=== PATIENT | male | born 1960 | race Caucasian/White ===

== ENCOUNTER 2019-10-11 14:54 | Outpatient (RCR) | payer MEDICAID, SELFPAY | END 2019-11-01 00:01 | LOC: US 14:54 | PROVIDERS: Family Provider Nurse Practitioner Family; PCP Nurse Practitioner Family; Visit Provider Internal Medicine Nephrology | DX: N18.3 Chronic kidney disease, stage 3 (moderate) (principal) | CPT/HCPCS: 76770 ==

== ENCOUNTER 2019-10-17 13:59 | Outpatient (RCR) | payer MEDICAID, SELFPAY | END 2019-11-01 00:01 | LOC: WOUND 13:59 | PROVIDERS: Family Provider Nurse Practitioner Family; Visit Provider Nurse Practitioner Family | DX: E11.621 Type 2 diabetes mellitus with foot ulcer (principal); L97.522 Non-pressure chronic ulcer of other part of left foot with fat layer exposed | CPT/HCPCS: 11042; 99212 ×2 ==

== ENCOUNTER 2020-03-15 15:40 | Inpatient (IN) | payer BC, OTHER, MEDICAID, SELFPAY ==
[2020-03-15] VITALS (12 sets, daily range): BP systolic 96–133; BP diastolic 47–78; PULSE 83–97; RESP 9–22; TEMP 36.2–36.9; O2SAT 93–98; BMI 36.9
--- NOTE | 2020-03-15 | SCC_ITS ---
Procedure Done: Open reduction and internal fixation right lateral malleolus fracture (Vazquez C) with plate and screws 16.6 seconds of fluoroscopic guidance, for a cumulative dose of 0.59 mGy, was provided to Dr. Howell by the radiology department. C-arm images of the RIGHT ankle were saved for the patient's permanent record. [facility]
--- NOTE | 2020-03-15 | XR_ITS ---
WS: [id number] C-ARM RADIOGRAPHS RIGHT ANKLE; 5 IMAGES HISTORY: OR PICS COMPARISON: 03/15/2020 Intraoperative fixation of the fracture dislocation at the RIGHT ankle. Reduction and now normal alig nment at the ankle mortise. Plate and screw fixation distal fibula. Posterior malleolus fracture in g ood alignment. XR/XR ankle RT 2V [id number] IMPRESSION: Intraoperative reduction of the fracture dislocation at the ankle. Plate and screw fixation distal fibular fracture in good alignment.
--- NOTE | 2020-03-15 15:52 | XR_ITS ---
WS: [id number] RIGHT ANKLE: 2 VIEW(S) TECHNIQUE: AP and lateral. HISTORY: injury with pain and deformity COMPARISON: None available. Fracture dislocation involving the ankle joint. Talus is laterally displaced with respect to the tibia and fibula. There is an oblique fracture of th e distal fibula. The tibia is medial to the talus and anterior. Avulsion fractures of the posterior t alus. Vascular calcifications in the posterior tibial artery. Extensive soft tissue edema. XR/XR ankle RT min 3V* [id number] IMPRESSION: Fracture dislocation involving the ankle. Trimalleolar fracture.
--- NOTE | 2020-03-15 15:53 | ED_ITS ---
Documented by User: ALIYA Rain 03/15/20 17:43 HPI - Extremity Problem General: Chief complaint: Extremity Injury, Lower Stated complaint: RIGHT ANKLE DEFORMITY Time Seen by Provider: 03/15/20 15:52 History of Present Illness: HPI Narrative: Patient is a 59-year-old male who comes to the ED with right ankle pain. Past medical history of type 2 diabetes, neuropathy and BPH. Patient says he fell and injured right ankle when walking out of [employer] parking lot today. Due to his neuropathy patient did not notice the extent of the injury and pain. Patient says he made at home and then went to stand up after sitting in his chair and he fell down due to the pain in his right ankle. His is on the ankle and said that it looks like he broke it. EMS was called. EMS team stated that patient had an obvious right ankle d eformity. Patient says his pain is only 1 or 2 out of 10 when he is sitting and not moving right lower extremity. As soon as he moves right lower extremity reports any weight on it pain jumps up to 10. Associated symptoms: Deny chest pain, fever(s) or rash Review of Systems Const: Denies: fever(s), chills or fatigue Eyes: Denies: change in vision or eye discomfort ENMT: Denies: throat pain, odynophagia, nasal discharge or nasal congestion Card: Denies: chest pain, palpitations, edema, swelling of feet/ankles, dyspnea on exertion or orthopnea Resp: Denies: dyspnea, productive cough or non-productive cough GI: Denies: abdominal pain, nausea, vomiting, diarrhea, constipation or hematochezia : Denies: flank pain, difficulty urinating, dysuria or hematuria Musc: Reports: extremity pain (Right ankle) and extremity swelling (right ankle); Denies: neck pain or back pain Skin/Breast: Denies: rash or new lesions Neuro: Denies: headache(s), numbness in extremities or weakness in extremities [facility] ED PFSH: Medical History Diabetes Diabetic neuropathy Essential hypertension, benign GERD (gastroesophageal reflux disease) Mixed hyperlipidemia due to type 2 diabetes mellitus Restless leg Sleep difficulties Type 2 diabetes mellitus with other specified complication Surgical History H/O esophagogastroduodenoscopy Normal 06/18 Hx of colonoscopy 06/18 normal - to return in 10 years (2026) Status post amputation of right great toe Amputation of right great toe due to Osteomyelitis Social History Smoking and tobacco status: never smoked Second hand smoke exposure: No Smoking risk assessment/counseling performed?: No Alcohol intake: never Desire information about alcohol rehabilitation?: No Counseling given: No Desire information about substance/drug rehabilitation?: No Counseling given: No Physical Exam Const: COMMON NORMALS: patient oriented x3 HENMT: COMMON NORMALS: normocephalic HEAD & SCALP: normocephalic MOUTH: Normal oral and palatal mucosa present THROAT: posterior oropharynx normal and uvula midline Neck/C-Spine: COMMON NORMALS: supple GENERAL: Yes normal visual inspection Resp: COMMON NORMALS: normal respiratory effort, No retractions, No use of accessory muscles and clear to auscultation bilaterally AUSCULTATION: clear to auscultation bilaterally Cardio: COMMON NORMALS: regular rate, regular rhythm, S1 normal heart sound present, S2 normal heart sound present, No gallops present (Cardio), No clicks present (Cardio), No murmurs present (Cardio) and Peripheral pulses 2+ throughout RATE: regular rate RHYTHM: regular rhythm HEART SOUNDS: S1 normal heart sound present and S2 normal heart sound present PERIPHERAL PULSES: Peripheral pulses 2+ throughout GI: COMMON NORMALS: Normal to inspection, nondistended, normoactive bowel sounds present, Soft to palpation, non-tender and no masses INSPECTION: Yes central obesity AUSCULTATION: Yes normoactive bowel sounds PALPATION: Yes Soft to palpation : COMMON NORMALS: Yes no CVA tenderness BLADDER/KIDNEY EXAM: Yes no CVA tenderness Back/Pelvis: COMMON NORMALS: no CVA tenderness Extremity: RIGHT LOWER EXTREMITY: Yes foot & digits Right ankle: Yes inspection (Ankle deformity?right foot is externally rotated unnatural position. Open sore on medial malleolus possibly open fracture.), Yes palpation (mild tenderness), Yes ROM (Limited due to pain.) and Yes neurovascular exam (2+ dorsal pedal pulse baseline neuropathy. pt unable to feel touch sensation on foot. ) Neuro: COMMON NORMALS: patient oriented x3 and moves all extremities Skin: WOUNDS: Yes wounds noted (Superficial abrasion of skin over medial malleolus?possible open fracture.) Course ED course: I discussed case with Dr. Amador and she will be taking over patient care and admission to surgery. Dr. Amador spoke with communications professional ortho doc and he instructed her to reduce and place patient in a posterior leg splint. Consultations: Consultation #1: I spoke to the orthopedic communications professional about patient and his right ankle fracture and dislocation. The doctor was able to review the x-rays as well and he recommends patient getting surgery tonight. He recommended the ED reducing fracture as best as they can before admitting. Vital Signs: Vital signs: Vital Signs Temperature 98.5 F 03/15/20 15:41 Pulse Rate 90 03/15/20 17:35 Respiratory Rate 14 03/15/20 17:35 Blood Pressure 105/68 03/15/20 17:35 Pulse Oximetry 98 03/15/20 17:35 MDM - Extremity (Nontraumatic) MDM Narrative: Medical decision making narrative: pt is a 59 y/o male that comes to the ED with right ankle injury and deformity. Xray showed Fracture dislocation involving the ankle. Trimalleolar fracture. I contacted Ortho doc and he said patient will be admitted for surgery tonight. I discussed case with Dr. Amador and she will be taking over patient care and admission to surgery. Dr. Amador spoke with communications professional ortho doc and he instructed her to reduce and place patient in a posterior leg splint. Lab Data: Attestation: I reviewed the patient's lab results. Labs: Lab Results 03/15/20 03/15/20 03/15/20 Range/Units 17:05 17:05 17:05 WBC 11.4 H (4.0-10.0) 10^3/ uL RBC 3.94 L (4.1-5.3) 10^6/u L Hgb 11.8 (11.7-16.6) g/dL Hct 36.6 L (42.0-52.0) % MCV 92.9 (80-94) fL MCH 29.9 (28.0-34.0) pg MCHC 32.2 (30.0-36.0) g/dL RDW 12.8 (12.1-15.1) % Plt Count 240 (130-400) 10^3/c mm MPV 11.6 H (7.4-10.4) fL Neut % (Auto) 77.2 % Lymph % (Auto) 12.4 % [place] % (Auto) 7.9 % Eos % (Auto) 1.6 % Baso % (Auto) 0.3 % Neut # (Auto) 8.8 H (1.8-7.7) 10^3/u L Lymph # (Auto) 1.4 (0.8-4.8) 10^3/u L [place] # (Auto) 0.9 (0.2-0.9) 10^3/u L Eos # (Auto) 0.2 (0.0-0.8) 10^3/u L Baso # (Auto) 0.0 (0.0-0.1) 10^3/u L Nucleated RBC % (a uto) 0 % Nucleated RBCs # 0.0 /100WBC PT 13.00 (10.5-13.3) SECO NDS INR 0.95 (0.8-1.2) APTT 28.0 (23.9-36.7) SECO NDS Sodium 135 L (136-145) mmol/L Potassium 5.0 (3.5-5.1) mmol/L Chloride 99 (98-107) mmol/L Carbon Dioxide 23 (22-29) mmol/L Anion Gap 18.0 (5-19) BUN 40 H (8-23) mg/dL Creatinine 2.1 H (0.7-1.2) mg/dL GFR Calculation 32.4 L (90-130) mL/min Glucose 311 H (65-115) mg/dL Calculated Osmolal ity 289 (285-295) mOsm/k g Calcium 8.9 (8.5-10.5) mg/dL Total Bilirubin 0.2 (0.15-1.2) mg/dL AST 21 (0-40) U/L ALT 20 (0-41) U/L Alkaline Phosphata se 112 (40-130) IU/L Total Protein 7.0 (6.6-8.7) g/dL Albumin 4.1 (3.5-5.2) g/dL Globulin 2.9 (1.3-4.6) g/dL Imaging Data^: Xray Ortho: Attestation: I personally reviewed and interpreted this imaging study as follows: Radiologist's impression: [address] [place] [address] XRay Report Signed Patient: Richie Baca Unit #: [id number] : 1960 Age/Sex: 59 / M ADM Date: 03/15/20 Loc: ER Room/Bed: Attending Dr: Ordering Provider/Ordering MD: Sloan Valencia Date of Service: 03/15/20 Procedure(s): XR ankle RT min 3V* [id number] Accession Number(s): [id number] Report Number: [id number] WS: [id number] RIGHT ANKLE: 2 VIEW(S) TECHNIQUE: AP and lateral. HISTORY: injury with pain and deformity COMPARISON: None available. Fracture dislocation involving the ankle joint. Talus is laterally displaced with respect to the tibia and fibula. There is an oblique fracture of the distal fibula. The tibia is medial to the talus and anterior. Avulsion fractures of the p osterior talus. Vascular calcifications in the posterior tibial artery. Extensive soft tissue edema. XR/XR ankle RT min 3V* [id number] IMPRESSION: Fracture dislocation involving the ankle. Trimalleolar fracture. Dictated By: Brandee Ott DO Signed By: Brandee Ott DO Signed Date/Time: 03/15/201636 DD/ 35 Discharge Plan Discharge Clinical Impression: Fracture dislocation of ankle Qualifiers: Encounter type: initial encounter Fracture type: open Open fracture type: open type I or II Laterality: right Qualified Code(s): S82.891B - Other fracture of right lower leg, initial encounter for open fracture type I or II Condition: Stable Prescriptions: No Action pantoprazole 40 mg tablet,delayed release (DR/EC) 40 mg PO DAILY 90 Days Qty: 90 RF: 1 pramipexole 0.25 mg tablet 0.25 mg PO DAILY 90 Days Qty: 90 RF: 1 lovastatin 20 mg tablet 20 mg PO DAILY 90 Days Qty: 90 RF: 1 gabapentin 300 mg capsule 300 mg PO BID 90 Days Qty: 180 RF: 1 amlodipine 10 mg tablet 10 ea PO DAILY RF: 0 (DME) pen needle, diabetic 31 gauge x 1/4 needle See Rx Instructions ea .ROUTE .MEDSUPPLY Qty: 30 RF: 0 (DME) FreeStyle Michaela 14 Day Sensor Kit See Rx Instructions .ROUTE .MEDSUPPLY Qty: 1 RF: 0 liraglutide 0.6 mg/0.1 mL (18 mg/3 mL) pen injector 1.8 mg SUBCUT DAILY Qty: 9 RF: 2 Levemir FlexTouch U-100 Insuln 100 unit/mL (3 mL) insulin pen 40 unit SUBCUT DAILY 90 Days Qty: 15 RF: 1 lisinopril 10 mg tablet 10 mg PO DAILY Qty: 30 RF: 2 glipizide 10 mg tablet 10 mg PO DAILY Qty: 30 RF: 2 amitriptyline 100 mg tablet 200 mg PO .at bedtime PRN (Reason: insomnia) Qty: 60 RF: 2 Januvia 100 mg tablet 100 mg PO DAILY 90 Days Qty: 90 RF: 1 tamsulosin 0.4 mg capsule 0.4 mg PO DAILY RF: 0 Multiple Vitamins Tablet 1 tab PO DAILY RF: 0 Vitamin C 1,000 mg Tablet Extended Release 1,000 mg PO Q12H RF: 0 aspirin 81 mg Tablet,Delayed Release (Dr/Ec) 81 mg PO DAILY RF: 0 iron 325 mg (65 mg iron) Tablet 325 mg PO DAILY RF: 0 Acetaminophen PM 25-500 mg Tablet 1 tab PO BEDTIME PRN (Reason: Sleep) RF: 0 Referrals: VERONICA Ordonez, [facility] DECKHAND [Primary Care Provider] - Coding Level of Care Code ED Refractive Surgeon for Chg Fwd Exam Comprehensive Documented by User: Nneka Amador MD 03/15/20 18:05 HPI - Extremity Problem General: Chief complaint: Extremity Injury, Lower Stated complaint: RIGHT ANKLE DEFORMITY Time Seen by Provider: 03/15/20 15:52 PFSH ED PFSH: Medical History Diabetes Diabetic neuropathy Essential hypertension, benign GERD (gastroesophageal reflux disease) Mixed hyperlipidemia due to type 2 diabetes mellitus Restless leg Sleep difficulties Type 2 diabetes mellitus with other specified complication Surgical History H/O esophagogastroduodenoscopy Normal 06/18 Hx of colonoscopy 06/18 normal - to return in 10 years (2026) Status post amputation of right great toe Amputation of right great toe due to Osteomyelitis Social History Smoking and tobacco status: never smoked Second hand smoke exposure: No Smoking risk assessment/counseling performed?: No Alcohol intake: never Desire information about alcohol rehabilitation?: No Counseling given: No Desire information about substance/drug rehabilitation?: No Counseling given: No Course Vital Signs: Vital signs: Vital Signs Temperature 98.5 F 03/15/20 15:41 Pulse Rate 90 03/15/20 17:35 Respiratory Rate 14 03/15/20 17:35 Blood Pressure 105/68 03/15/20 17:35 Pulse Oximetry 98 03/15/20 17:35 MDM - Extremity (Nontraumatic) MDM Narrative: Medical decision making narrative: I personally saw this patient in conjunction with the midlevel. He has an open ankle fracture [facility] I spoke with Dr. Howell in the room with the patient. He asked that I try to reduce while putting on a posterior splint while awaiting the OR. Patient was given 2 mg of morphine maintained his sats with nasal cannula and I reduced his right ankle there is less deformity grossly still difficult to palpate a dorsalis pedis pulse but ankle and foot look much better after reduction. Patient tolerated this very well and states that it actually feels better at this time he is comfortable in bed currently. RN and I put the posterior splint on. He also has received IV antibiotics. Lab Data: Labs: Lab Results 03/15/20 03/15/20 03/15/20 Range/Units 17:05 17:05 17:05 WBC 11.4 H (4.0-10.0) 10^3/ uL RBC 3.94 L (4.1-5.3) 10^6/u L Hgb 11.8 (11.7-16.6) g/dL Hct 36.6 L (42.0-52.0) % MCV 92.9 (80-94) fL MCH 29.9 (28.0-34.0) pg MCHC 32.2 (30.0-36.0) g/dL RDW 12.8 (12.1-15.1) % Plt Count 240 (130-400) 10^3/c mm MPV 11.6 H (7.4-10.4) fL Neut % (Auto) 77.2 % Lymph % (Auto) 12.4 % [place] % (Auto) 7.9 % Eos % (Auto) 1.6 % Baso % (Auto) 0.3 % Neut # (Auto) 8.8 H (1.8-7.7) 10^3/u L Lymph # (Auto) 1.4 (0.8-4.8) 10^3/u L [place] # (Auto) 0.9 (0.2-0.9) 10^3/u L Eos # (Auto) 0.2 (0.0-0.8) 10^3/u L Baso # (Auto) 0.0 (0.0-0.1) 10^3/u L Nucleated RBC % (a uto) 0 % Nucleated RBCs # 0.0 /100WBC PT 13.00 (10.5-13.3) SECO NDS INR 0.95 (0.8-1.2) APTT 28.0 (23.9-36.7) SECO NDS Sodium 135 L (136-145) mmol/L Potassium 5.0 (3.5-5.1) mmol/L Chloride 99 (98-107) mmol/L Carbon Dioxide 23 (22-29) mmol/L Anion Gap 18.0 (5-19) BUN 40 H (8-23) mg/dL Creatinine 2.1 H (0.7-1.2) mg/dL GFR Calculation 32.4 L (90-130) mL/min Glucose 311 H (65-115) mg/dL Calculated Osmolal ity 289 (285-295) mOsm/k g Calcium 8.9 (8.5-10.5) mg/dL Total Bilirubin 0.2 (0.15-1.2) mg/dL AST 21 (0-40) U/L ALT 20 (0-41) U/L Alkaline Phosphata se 112 (40-130) IU/L Total Protein 7.0 (6.6-8.7) g/dL Albumin 4.1 (3.5-5.2) g/dL Globulin 2.9 (1.3-4.6) g/dL Discharge Plan Discharge Clinical Impression: Fracture dislocation of ankle Qualifiers: Encounter type: initial encounter Fracture type: open Open fracture type: open type I or II Laterality: right Qualified Code(s): S82.891B - Other fracture of right lower leg, initial encounter for open fracture type I or II Condition: Stable Prescriptions: No Action pantoprazole 40 mg tablet,delayed release (DR/EC) 40 mg PO DAILY 90 Days Qty: 90 RF: 1 pramipexole 0.25 mg tablet 0.25 mg PO DAILY 90 Days Qty: 90 RF: 1 lovastatin 20 mg tablet 20 mg PO DAILY 90 Days Qty: 90 RF: 1 gabapentin 300 mg capsule 300 mg PO BID 90 Days Qty: 180 RF: 1 amlodipine 10 mg tablet 10 ea PO DAILY RF: 0 (DME) pen needle, diabetic 31 gauge x 1/4 needle See Rx Instructions ea .ROUTE .MEDSUPPLY Qty: 30 RF: 0 (DME) FreeStyle Michaela 14 Day Sensor Kit See Rx Instructions .ROUTE .MEDSUPPLY Qty: 1 RF: 0 liraglutide 0.6 mg/0.1 mL (18 mg/3 mL) pen injector 1.8 mg SUBCUT DAILY Qty: 9 RF: 2 Levemir FlexTouch U-100 Insuln 100 unit/mL (3 mL) insulin pen 40 unit SUBCUT DAILY 90 Days Qty: 15 RF: 1 lisinopril 10 mg tablet 10 mg PO DAILY Qty: 30 RF: 2 glipizide 10 mg tablet 10 mg PO DAILY Qty: 30 RF: 2 amitriptyline 100 mg tablet 200 mg PO .at bedtime PRN (Reason: insomnia) Qty: 60 RF: 2 Januvia 100 mg tablet 100 mg PO DAILY 90 Days Qty: 90 RF: 1 tamsulosin 0.4 mg capsule 0.4 mg PO DAILY RF: 0 Multiple Vitamins Tablet 1 tab PO DAILY RF: 0 Vitamin C 1,000 mg Tablet Extended Release 1,000 mg PO Q12H RF: 0 aspirin 81 mg Tablet,Delayed Release (Dr/Ec) 81 mg PO DAILY RF: 0 iron 325 mg (65 mg iron) Tablet 325 mg PO DAILY RF: 0 Acetaminophen PM 25-500 mg Tablet 1 tab PO BEDTIME PRN (Reason: Sleep) RF: 0 Referrals: VERONICA Ordonez, [facility] DECKHAND [Primary Care Provider] - Coding Level of Care Code ED Refractive Surgeon for Chg Fwd Exam Comprehensive
[2020-03-15] MEDS: ondansetron 2 mg/ML SDV 2 mL 4 MG IVP (17:01)
[2020-03-15] MEDS: morphine 4 mg/mL SDV 1 mL IVP (17:01)
[2020-03-15 17:18] LABS: Basophils % 0.3 %; Eosinophils # 0.2 10^3/uL (0.0-0.8); Eosinophils % 1.6 %; Hematocrit 36.6 % (42.0-52.0); Hemoglobin 11.8 g/dL (11.7-16.6); Lymphocytes # 1.4 10^3/uL (0.8-4.8); Lymphocytes % 12.4 %; Mean Corpuscular HGB Conc 32.2 g/dL (30.0-36.0); Mean Corpuscular Hemoglobin 29.9 pg (28.0-34.0); Mean Corpuscular Volume 92.9 fL (80-94); Mean Platelet Volume 11.6 fL (7.4-10.4); Monocytes # 0.9 10^3/uL (0.2-0.9); Monocytes % 7.9 %; Neutrophils # 8.8 10^3/uL (1.8-7.7); Neutrophils % 77.2 %; Nucleated Red Blood Cells % 0 %; Platelet Count 240 10^3/cmm (130-400); Red Blood Count 3.94 10^6/uL (4.1-5.3); Red Cell Distribution Width 12.8 % (12.1-15.1); White Blood Count 11.4 10^3/uL (4.0-10.0)
[2020-03-15 17:33] LABS: INR 0.95 (0.8-1.2)
[2020-03-15 17:36] LABS: Alanine Aminotransferase 20 U/L (0-41); Albumin Level 4.1 g/dL (3.5-5.2); Alkaline Phosphatase 112 IU/L (40-130); Aspartate Amino Transferase 21 U/L (0-40); Blood Urea Nitrogen 40 mg/dL (8-23); Calcium 8.9 mg/dL (8.5-10.5); Carbon Dioxide 23 mmol/L (22-29); Chloride 99 mmol/L (98-107); Globulin 2.9 g/dL (1.3-4.6); Glomerular Filtration Rate 32.4 mL/min (90-130); Glucose 311 mg/dL (65-115); Osmolality Calculated 289 mOsm/kg (285-295); Sodium 135 mmol/L (136-145); Total Bilirubin 0.2 mg/dL (0.15-1.2)
[2020-03-15] MEDS: morphine 4 mg/mL SDV 1 mL 2 MG IVP (17:43)
--- NOTE | 2020-03-15 17:55 | P.HP_ITS ---
Providers/Chief Complaint Admitting Physician: Gregory Howell DO Orthopedic surgery Primary Care Provider: MADELEINE Waldrop Chief Complaint: RIGHT ANKLE DEFORMITY History of Present Illness Richie Baca is a 59 year old male At [facility] in the local area and sustained a fracture dislocation of his right ankle. He is brought [facility]. Evaluation shows a gross deformity of the right ankle. X-ray shows a trimalleolar ankle fracture dislocation. Patient is a longstanding diabetic of greater than 30 years by his history. States his blood sugars are necessarily well controlled. Review of Systems Const: Denies: fever(s) or chills Card: Denies: chest pain, palpitations or dyspnea on exertion Resp: Denies: dyspnea or productive cough GI: Denies: abdominal pain, nausea or vomiting Musc: Reports: extremity pain, joint pain and deformity (Right ankle) Skin/Breast: Reports: new lesions (Skin over medial malleolus is dark and tented from deformity of right ankle) Medications/Allergies Home Medications Medication Instructions Recorded Confirmed Last Taken Type amlodipine 10 mg tablet 10 ea PO DAILY 11/15/19 03/15/20 Unknown History flash glucose sensor #1 each 11/15/19 03/15/20 Unknown Rx pen needle, diabetic 31 gauge x #30 each 11/15/19 03/15/20 Unknown History / liraglutide 0.6 mg/0.1 mL (18 mg/3 1.8 mg SUBCUT DAILY #9 ml 01/23/20 03/15/20 Unknown Rx mL) subcutaneous pen injector insulin detemir U-100 100 unit/mL 40 unit SUBCUT DAILY 90 Days #15 ml 01/30/20 03/15/20 03/15/20 Rx (3 mL) subcutaneous pen gabapentin 300 mg capsule 300 mg PO BID 90 Days #180 cap 01/31/20 03/15/20 03/15/20 Rx lovastatin 20 mg tablet 20 mg PO DAILY 90 Days #90 tab 01/31/20 03/15/20 03/15/20 Rx pantoprazole 40 mg tablet,delayed 40 mg PO DAILY 90 Days #90 tab 01/31/20 03/15/20 03/15/20 Rx release pramipexole 0.25 mg tablet 0.25 mg PO DAILY 90 Days #90 tab 01/31/20 03/15/20 03/15/20 Rx amitriptyline 100 mg tablet 200 mg PO .at bedtime PRN #60 tab 02/10/20 03/15/20 03/14/20 Rx glipizide 10 mg tablet 10 mg PO DAILY #30 tab 02/10/20 03/15/20 03/15/20 Rx lisinopril 10 mg tablet 10 mg PO DAILY #30 tab 02/10/20 03/15/20 03/15/20 Rx sitagliptin 100 mg tablet 100 mg PO DAILY 90 Days #90 tab 03/12/20 03/15/20 03/15/20 Rx ascorbic acid (vitamin C) [Vitamin 1,000 mg PO Q12H 03/15/20 03/15/20 03/15/20 History C] aspirin 81 mg PO DAILY 03/15/20 03/15/20 03/15/20 History diphenhydramine-acetaminophen 1 tab PO BEDTIME PRN 03/15/20 03/15/20 03/15/20 History [Acetaminophen PM] iron 325 mg PO DAILY 03/15/20 03/15/20 03/15/20 History multivitamin [Multiple Vitamins] 1 tab PO DAILY 03/15/20 03/15/20 03/15/20 History tamsulosin 0.4 mg PO DAILY 03/15/20 03/15/20 Unknown History Allergies Allergy/AdvReac Type Severity Reaction Status Date / Time No Known Allergies Allergy Verified 03/15/20 15:47 PFSH Acute PFSH: Medical History Diabetes Diabetic neuropathy Essential hypertension, benign GERD (gastroesophageal reflux disease) Mixed hyperlipidemia due to type 2 diabetes mellitus Restless leg Sleep difficulties Type 2 diabetes mellitus with other specified complication Surgical History H/O esophagogastroduodenoscopy Normal 06/18 Hx of colonoscopy 06/18 normal - to return in 10 years (2026) Status post amputation of right great toe Amputation of right great toe due to Osteomyelitis Social History Smoking and tobacco status: never smoked Second hand smoke exposure: No Smoking risk assessment/counseling performed?: No Alcohol intake: never Desire information about alcohol rehabilitation?: No Counseling given: No Desire information about substance/drug rehabilitation?: No Counseling given: No Vitals/I&O/Wt Last Vital Signs Temp 98.5 F 03/15/20 15:41 Pulse 90 03/15/20 17:35 Resp 14 03/15/20 17:35 BP 105/68 03/15/20 17:35 Pulse Ox 98 03/15/20 17:35 Weight last 48 hrs Weight 250 lb Physical Exam Const: COMMON NORMALS: patient oriented x3, alert and well nourished EXAM LIMITATIONS: no altered mental status GENERAL APPEARANCE: cooperative and in distress; no odor of alcohol detected HENMT: TEETH & GINGIVA: Yes dentures Resp: COMMON NORMALS: normal respiratory effort, No retractions, No use of accessory muscles and clear to auscultation bilaterally Cardio: COMMON NORMALS: no JVD, regular rate, S1 normal heart sound present and S2 normal heart sound present GI: COMMON NORMALS: Normal to inspection, nondistended, normoactive bowel sounds present, Soft to palpation and non-tender Extremity: RIGHT LOWER EXTREMITY: Yes foot & digits Right ankle: Yes inspection (Gross deformity right ankle due to fracture dislocation) and Yes foot & digits (Missing small toe right foot from previous amputation) Neuro: SENSORIUM/ORIENTATION: Yes alert, Yes oriented to person, Yes oriented to place, Yes oriented to time and No Orientation impaired Data : 03/15/20 17:05 03/15/20 17:05 Attestations Medical Necessity Statement*: 59-year-old white male with diabetes with fracture dislocation of right ankle to be taken to the operating room tonight on an urgent basis for stabilization of his ankle prior to swelling developing. He may be able to be discharged tomorrow from an orthopedic perspective I am concerned with regards to blood sugar control and pain control in the postoperative period that could require him to stay beyond single overnight stay and require more than 2 overnight stays potentially. Time Spent in Patient Care: Greater than 35 minutes (>than 50% of time spent in counselling and/or direct pt care on unit) . Coding Level of Care Code Acute Hospice Massage Therapist for Jone Lewis
--- NOTE | 2020-03-15 18:05 | XR_ITS ---
WS: [id number] RIGHT ANKLE: 2 VIEW(S) TECHNIQUE: AP and lateral. HISTORY: reduction COMPARISON: Study earlier the same day. Attempted reduction of the fracture dislocation. No change in alignment. There is continued fracture dislocation at the ankle. Trimalleolar fractures with the talus being posterior and lateral in relati onship to the tibia. XR/XR ankle RT 2V [id number] IMPRESSION: Persistent fracture dislocation at the ankle joint.
--- NOTE | 2020-03-15 18:23 | P.OP_ITS ---
Operative Report Date of procedure: March 15, 2020 Pre-op Diagnosis: right ankle fracture dislocation Post-op Diagnosis: Right bimalleolar ankle fracture dislocation Procedure Done: Open reduction and internal fixation right lateral malleolus fracture with plate and screws Closed treatment w/o manipulation of posterior malleolar fracture Implants: Delmont plate and screws Pathology: none sent Surgeon: Gregory Howell Anesthesia: General Estimated blood loss (mL): 15 Tourniquet time (min): 45 Condition: stable Disposition: PACU Brief History: 59-year-old white male longstanding diabetic [facility] sustaining a fracture dislocation of his right ankle. He is brought to the emergency room. X-rays demonstrated his fracture dislocation. His fracture was able to be gently realigned using moderate sedation. He was seen in the ER by myself and recommended that he undergo urgent stabilization of his fracture prior to swelling. We discussed potential complications of surgery risk of surgery include are not limited to wound healing complications as he has tented area over the medial malleolus area that could lead to skin breakdown. Patient has a history of amputation of the right small toe due to complications from diabetes. He could go on to develop a Charcot joint. I explained this pathology to him. There be complications with wound healing, failure fracture to heal failure of implants. Medical complications can include infection, blood clots, heart attack, stroke risk up to including . All questions were answered patient is agreeable to proceed with surgery this evening on urgent basis. Procedure: 1.5 g of Zinacef Patient identified. Surgical site was signed. Surgical permit was signed. Patient received 1.5 g of Zinacef intravenously for surgical prophylaxis. He was taken back to the operating room. His placed supine on the operating room table was placed under general anesthesia without difficulty. A tourniquet was placed but the upper aspect of the right thigh. The right lower extremity is in sterilely prepped and draped usual fashion. Timeout was performed. Operative limb was elevated and exsanguinated using Esmarch bandage tourniquet inflated to 300 mmHg pressure. A 15 cm incision was made from the tip of the lateral ma lleolus proximal in line with the underlying fibula. Dissection was carried down to bone. Periosteal elevator was used to expose the lateral fibular cortex. The fracture site was identified. With a bone-holding tenaculum forceps I traction the distal portion of the lateral malleolus opening up the fracture site. I curetted the fracture site of interpose soft tissue and fracture hematoma. The fracture was then reduced using the bone-holding tenaculum forceps. A Matias fibular plate of appropriate length was then placed over the reduced fracture. It was pinned in place using K wires. We then used fluoroscopic imaging to verify that the fracture was indeed reduced and the plate was appropriately placed. Then placed a cortical screw proximal to the fracture line and compress the plate down to the lateral surface of the fibula. Then placed a series of distal and proximal locking screws in place. Fluoroscopic imaging was used to verify appropriate placement of implants. The fracture was reduced and AP oblique and lateral images. And then used external portion and fluoroscopic imaging as well as a instrument between the distal fibula and tibia to attempt to widen the distal tibiofibular joint. I was unable to create any increased Or noted any instability of the distal tibiofibular joint. This reason we cannot stabilize the distal tibia fibular joint either but suspension device or a screw fixation. The wound was irrigated with Betadine-containing saline solution, antibiotic containing saline solution. Skin was then closed in layers with nylon suture and colin on skin. Antibiotic ointment was applied to the incision line as well as the area of discolored skin there was still intact over the medial malleolus Telfa was applied to the medial malleolar area as well as the incision. Sterile dressings were applied to include Elmore cotton to allow for swelling. A posterior plaster splint with a stirrup augment was applied with an Hardik overwrap. Tourniquet was deflated during application of dressings. The patient was aroused from general anesthesia. He was taken to recovery room in stable satisfactory condition having tolerated procedure well. All counts are correct.
--- NOTE | 2020-03-15 20:44 | PC.NURSE ---
Pt. off unit at this time to OR.
--- NOTE | 2020-03-15 20:53 | SUR.PHASEI ---
2044 patient to ops at this time from med surg. denies pain to right ankle.
--- NOTE | 2020-03-15 21:16 | ANES.PREANE2 ---
Pre-Anesthetic Assessment Pre-Anesthetic Assessment: Height/Weight: Height 1.75 m Weight 113.398 kg Temp Pulse Resp BP Pulse Ox 98.1 F 87 18 133/74 95 03/15/20 20:45 03/15/20 20:45 03/15/20 20:45 03/15/20 20:45 03/15/20 20:45 Preop Diagnosis: right ankle fracture dislocation Proposed Procedure: Operation Date: 03/15/20 18:50 Proposed Procedures p ORIF Ankle(Not Applicable) - Gregory Howell DO Last intake: Intake Last Liquid Date 03/15/20 Last Liquid Time 10:30 Last Solid Date 03/15/20 Last Solid Time 10:30 Social: Social History: No alcohol and No tobacco Exam: Pre-Anes Outpt Exam: alert, oriented x 3, clear to auscultation bilaterally and regular rate & rhythm Airway: Submandibular: WNL Cervical ROM: WNL MP: 3 Dentition: False (upper and lower) History/ROS: No significant history except as noted Pulmonary: Pulmonary: COPD and GUTIERREZ CV/HEM: CV/HEM: HTN : : Chronic renal Insufficiency Hepatic: Hepatic: None reported GI: GI: GERD Metabolic: Metabolic: DM, Hyperlipidemia and Morbid obesity Musc/skel: Musc/skel: OA/DJD Neuropsych: Neuropsych: Neuropathy Anesthetic Plan: ASA status: 3 Anesthesia: Anesthesia Evaluation and General Risk of > 500 ml blood loss (7ml/kg in children): No PFSH Anesthesia PFSH: Medical History Diabetes Diabetic neuropathy Essential hypertension, benign GERD (gastroesophageal reflux disease) Mixed hyperlipidemia due to type 2 diabetes mellitus Restless leg Sleep difficulties Type 2 diabetes mellitus with other specified complication Surgical History H/O esophagogastroduodenoscopy Normal 06/18 Hx of colonoscopy 06/18 normal - to return in 10 years (2026) Status post amputation of right great toe Amputation of right great toe due to Osteomyelitis Social History Smoking and tobacco status: never smoked Second hand smoke exposure: No Smoking risk assessment/counseling performed?: No Alcohol intake: never Desire information about alcohol rehabilitation?: No Counseling given: No Desire information about substance/drug rehabilitation?: No Counseling given: No Data Anesthesia CBC & Chem 7: 03/15/20 17:05 03/15/20 17:05 Other Labs: Laboratory Results - last 48 hr 03/15/20 03/15/20 03/15/20 17:05 17:05 17:05 WBC 11.4 H RBC 3.94 L Hgb 11.8 Hct 36.6 L MCV 92.9 MCH 29.9 MCHC 32.2 RDW 12.8 Plt Count 240 MPV 11.6 H Neut % (Auto) 77.2 Lymph % (Auto) 12.4 [place] % (Auto) 7.9 Eos % (Auto) 1.6 Baso % (Auto) 0.3 Neut # (Auto) 8.8 H Lymph # (Auto) 1.4 Leslie # (Auto) 0.9 Eos # (Auto) 0.2 Baso # (Auto) 0.0 Nucleated RBC % (auto) 0 Nucleated RBCs # 0.0 PT 13.00 INR 0.95 APTT 28.0 Sodium 135 L Potassium 5.0 Chloride 99 Carbon Dioxide 23 Anion Gap 18.0 BUN 40 H Creatinine 2.1 H GFR Calculation 32.4 L Glucose 311 H Calculated Osmolality 289 Calcium 8.9 Total Bilirubin 0.2 AST 21 ALT 20 Alkaline Phosphatase 112 Total Protein 7.0 Albumin 4.1 Globulin 2.9 Cardiac Studies: No Data to Display
[2020-03-15] MEDS: sodium chloride 0.9% 1,000 ML 30 ML IV (21:33)
[2020-03-15] MEDS: cefUROXime 1,500 MG in sodium chloride 0.9% (plus) 50 ML 100 MG IV (22:01)
[2020-03-15] MEDS: neomycin-poly-bacitracin oint 28 gm 1 APPLIC TOPICAL (23:37)
--- NOTE | 2020-03-15 23:48 | SUR.PHASEI ---
4505 PATIENT TO PACU AT THIS TIME FROM OR. RR EVEN AND UNLABORED. ORAL AIRWAY IN PLACE. PLACED ON SIMPLE MASK AT 8L, SPO2 96%. DRESSING INTACT TO RIGHT ANKLE. COOL TO THE TOUCH, CAP REFILL LESS THAN 3 SECONDS.
[2020-03-16] VITALS (18 sets, daily range): BP systolic 79–153; BP diastolic 51–73; PULSE 82–108; RESP 12–25; TEMP 36.2–37.3; O2SAT 90–97
--- NOTE | 2020-03-16 00:10 | SUR.PHASEI ---
1210 ORAL AIRWAY REMOVED AT THIS TIME. SPO2 96% ON 3L NC.
--- NOTE | 2020-03-16 00:46 | SUR.PHASEI ---
0036 PATIENT TO MED SURG AT THIS TIME. AROUSABLE TO VERBAL STIMULI, DROWSY. VITALS STABLE. PATIENT DENIES PAIN. DRESSING TO RIGHT ANKLE, CDI WITH FIRST ICE IN PLACE.
--- NOTE | 2020-03-16 01:55 | P.CONIM_ITS ---
Providers/Reason For Consult Consulting Physican/Specialty*: Dr. Howell Reason for Consult*: Comanagement of chronic medical conditions. Attending Physician: Gregory Howell DO Primary Care Provider: MADELEINE Waldrop History of Present Illness History of Present Illness Richie Baca is a 59 year old male with past medical history of diabetes, diabetic peripheral neuropathy, hypertension, chronic kidney disease, restless leg syndrome, GERD, BPH who fell in [facility] and suffered 3 malleolar fracture of the right ankle. Status post open reduction and internal fixation by Dr. Howell. I was kindly asked by Dr. Mason to help with management of patient's chronic medical conditions. The patient reports that his diabetes and hypertension are well controlled. He denies any history of heart disease. No chest pain, palpitations, shortness of breath, dizziness or lightheadedness. No nausea or vomiting. No diarrhea. No fevers or chills. The fall according to the patient was mechanical in nature. He misstepped and lost balance. The patient denies any similar episodes in the past. Currently the pain is well controlled. Review of Systems General: Reports: 10 or more systems reviewed and unremarkable except in HPI and below Meds/Allergies Home Medications and Allergies Home Medications Medication Instructions Recorded Confirmed Last Taken Type amlodipine 10 mg tablet 10 ea PO DAILY 11/15/19 03/15/20 Unknown History flash glucose sensor #1 each 11/15/19 03/15/20 Unknown Rx pen needle, diabetic 31 gauge x #30 each 11/15/19 03/15/20 Unknown History 1/4 liraglutide 0.6 mg/0.1 mL (18 mg/3 1.8 mg SUBCUT DAILY #9 ml 01/23/20 03/15/20 Unknown Rx mL) subcutaneous pen injector insulin detemir U-100 100 unit/mL 40 unit SUBCUT DAILY 90 Days #15 ml 01/30/20 03/15/20 03/15/20 Rx (3 mL) subcutaneous pen gabapentin 300 mg capsule 300 mg PO BID 90 Days #180 cap 01/31/20 03/15/20 03/15/20 Rx lovastatin 20 mg tablet 20 mg PO DAILY 90 Days #90 tab 01/31/20 03/15/20 03/15/20 Rx pantoprazole 40 mg tablet,delayed 40 mg PO DAILY 90 Days #90 tab 01/31/20 03/15/20 03/15/20 Rx release pramipexole 0.25 mg tablet 0.25 mg PO DAILY 90 Days #90 tab 01/31/20 03/15/20 03/15/20 Rx amitriptyline 100 mg tablet 200 mg PO .at bedtime PRN #60 tab 02/10/20 03/15/20 03/14/20 Rx glipizide 10 mg tablet 10 mg PO DAILY #30 tab 02/10/20 03/15/20 03/15/20 Rx lisinopril 10 mg tablet 10 mg PO DAILY #30 tab 02/10/20 03/15/20 03/15/20 Rx sitagliptin 100 mg tablet 100 mg PO DAILY 90 Days #90 tab 03/12/20 03/15/20 03/15/20 Rx ascorbic acid (vitamin C) [Vitamin 1,000 mg PO Q12H 03/15/20 03/15/20 03/15/20 History C] aspirin 81 mg PO DAILY 03/15/20 03/15/20 03/15/20 History diphenhydramine-acetaminophen 1 tab PO BEDTIME PRN 03/15/20 03/15/20 03/15/20 History [Acetaminophen PM] iron 325 mg PO DAILY 03/15/20 03/15/20 03/15/20 History multivitamin [Multiple Vitamins] 1 tab PO DAILY 03/15/20 03/15/20 03/15/20 History tamsulosin 0.4 mg PO DAILY 03/15/20 03/15/20 Unknown History Allergies Allergy/AdvReac Type Severity Reaction Status Date / Time Plastic Tape Allergy ALGY-Hives Uncoded 03/15/20 19:34 PFSH Acute PFSH: Medical History Diabetes Diabetic neuropathy Essential hypertension, benign GERD (gastroesophageal reflux disease) Mixed hyperlipidemia due to type 2 diabetes mellitus Restless leg Sleep difficulties Type 2 diabetes mellitus with other specified complication Surgical History H/O esophagogastroduodenoscopy Normal 06/18 Hx of colonoscopy 06/18 normal - to return in 10 years (2026) Status post amputation of right great toe Amputation of right great toe due to Osteomyelitis Social History Smoking and tobacco status: never smoked Second hand smoke exposure: No Smoking risk assessment/counseling performed?: No Alcohol intake: never Desire information about alcohol rehabilitation?: No Counseling given: No Desire information about substance/drug rehabilitation?: No Counseling given: No Vitals/I&O/Wt Last Vital Signs Temp 97.1 F L 03/16/20 00:35 Pulse 83 03/16/20 00:35 Resp 12 03/16/20 00:35 BP 117/70 03/16/20 00:35 Pulse Ox 94 03/16/20 00:35 03/15/20 03/15/20 03/16/20 14:59 22:59 06:59 Intake Total 100 / 100 0 / 100 Output Total Balance 100 / 100 -20 / 80 Weight last 48 hrs Weight 113.398 kg Physical Exam Narrative: EXAM NARRATIVE: Awake alert oriented x3. No acute distress. Mood and affect are appropriate. Skin is warm and dry. Moist mucous membranes. Normal speech. No facial asymmetry. Eyes PERRLA, extraocular muscles intact. Neck supple. No JVD Lungs clear bilaterally. No respiratory distress Heart S1, S2, regular Abdomen soft, nontender, bowel sounds are present Extremities right lower extremity is in immobilization cast. There is left lower extremity pedal edema mild. No cyanosis no calf tenderness bilaterally. Data Labs: Other Labs: Laboratory Results WBC 11.4 10^3/uL (4.0 -10.0) H 03/15/20 17:05 RBC 3.94 10^6/uL (4.1 -5.3) L 03/15/20 17:05 Hgb 11.8 g/dL (11.7-1 6.6) 03/15/20 17:05 Hct 36.6 % (42.0-52.0 ) L 03/15/20 17:05 MCV 92.9 fL (80-94) 03/15/20 17:05 MCH 29.9 pg (28.0-34. 0) 03/15/20 17:05 MCHC 32.2 g/dL (30.0-3 6.0) 03/15/20 17:05 RDW 12.8 % (12.1-15.1 ) 03/15/20 17:05 Plt Count 240 10^3/cmm (130 -400) 03/15/20 17:05 MPV 11.6 fL (7.4-10.4 ) H 03/15/20 17:05 Neut % (Auto) 77.2 % 03/15/20 17:05 Lymph % (Auto) 12.4 % 03/15/20 17:05 [place] % (Auto) 7.9 % 03/15/20 17:05 Eos % (Auto) 1.6 % 03/15/20 17:05 Baso % (Auto) 0.3 % 03/15/20 17:05 Neut # (Auto) 8.8 10^3/uL (1.8- 7.7) H 03/15/20 17:05 Lymph # (Auto) 1.4 10^3/uL (0.8- 4.8) 03/15/20 17:05 [place] # (Auto) 0.9 10^3/uL (0.2- 0.9) 03/15/20 17:05 Eos # (Auto) 0.2 10^3/uL (0.0- 0.8) 03/15/20 17:05 Baso # (Auto) 0.0 10^3/uL (0.0- 0.1) 03/15/20 17:05 Nucleated RBC % (a uto) 0 % 03/15/20 17:05 Nucleated RBCs # 0.0 /100WBC 03/15/20 17:05 PT 13.00 SECONDS (10 .5-13.3) 03/15/20 17:05 INR 0.95 (0.8-1.2) 03/15/20 17:05 APTT 28.0 SECONDS (23. 9-36.7) 03/15/20 17:05 Sodium 135 mmol/L (136-1 45) L 03/15/20 17:05 Potassium 5.0 mmol/L (3.5-5 .1) 03/15/20 17:05 Chloride 99 mmol/L (98-107 ) 03/15/20 17:05 Carbon Dioxide 23 mmol/L (22-29) 03/15/20 17:05 Anion Gap 18.0 (5-19) 03/15/20 17:05 BUN 40 mg/dL (8-23) H 03/15/20 17:05 Creatinine 2.1 mg/dL (0.7-1. 2) H 03/15/20 17:05 GFR Calculation 32.4 mL/min (90-1 30) L 03/15/20 17:05 Glucose 311 mg/dL (65-115 ) H 03/15/20 17:05 Calculated Osmolal ity 289 mOsm/kg (285- 295) 03/15/20 17:05 Calcium 8.9 mg/dL (8.5-10 .5) 03/15/20 17:05 Total Bilirubin 0.2 mg/dL (0.15-1 .2) 03/15/20 17:05 AST 21 U/L (0-40) 03/15/20 17:05 ALT 20 U/L (0-41) 03/15/20 17:05 Alkaline Phosphata se 112 IU/L (40-130) 03/15/20 17:05 Total Protein 7.0 g/dL (6.6-8.7 ) 03/15/20 17:05 Albumin 4.1 g/dL (3.5-5.2 ) 03/15/20 17:05 Globulin 2.9 g/dL (1.3-4.6 ) 03/15/20 17:05 A&P Additional A&P Information Status post ORIF by Dr. Howell of right trimalleolar fracture after mechanical fall. Continue pain management. Probably home in the morning if the pain is well controlled with outpatient follow-up with Dr. Howell. History of diabetes. Will resume home insulin and Januvia. Will hold the rest of the medications. He is already on insulin sliding scale. Hypertension. Currently well controlled. Continue current management. Adding PRN hydralazine. DVT prophylaxis. If he remains in the hospital tomorrow we will check with Dr. Howell if it is okay to use Lovenox. Chronic kidney disease. Continue monitoring renal function. The plan of care was discussed with the patient. He verbalized understanding and agreement. Thank you very much for allowing me to participate in treatment of this patient Coding Level of Care Code Acute Fire Fighting Equipment Specialist for Jone Lewis
[2020-03-16 03:41] LABS: Glucose Point of Care 240 mg/dL (70-110)
--- NOTE | 2020-03-16 05:34 | PC.NURSE ---
Patient did not require pain medication the rest of my shift after he came up from surgery. Pt has been sleeping, neurovascular checks have all been WNL, oxygenation has remained in the upper 90s on 3LPM NC. Overall Pt is doing very well.
[2020-03-16 06:18] LABS: Basophils % 0.2 %; Eosinophils # 0.1 10^3/uL (0.0-0.8); Eosinophils % 0.6 %; Hematocrit 36.1 % (42.0-52.0); Hemoglobin 10.9 g/dL (11.7-16.6); Lymphocytes # 1.2 10^3/uL (0.8-4.8); Lymphocytes % 9.7 %; Mean Corpuscular HGB Conc 30.2 g/dL (30.0-36.0); Mean Corpuscular Hemoglobin 28.6 pg (28.0-34.0); Mean Corpuscular Volume 94.8 fL (80-94); Mean Platelet Volume 11.8 fL (7.4-10.4); Monocytes # 1.1 10^3/uL (0.2-0.9); Monocytes % 8.9 %; Neutrophils # 9.9 10^3/uL (1.8-7.7); Neutrophils % 80.1 %; Nucleated Red Blood Cells % 0 %; Platelet Count 228 10^3/cmm (130-400); Red Blood Count 3.81 10^6/uL (4.1-5.3); Red Cell Distribution Width 13.1 % (12.1-15.1); White Blood Count 12.4 10^3/uL (4.0-10.0)
[2020-03-16 06:32] LABS: Anion Gap 16.8 (5-19); Blood Urea Nitrogen 33 mg/dL (8-23); Calcium 8.6 mg/dL (8.5-10.5); Carbon Dioxide 23 mmol/L (22-29); Chloride 103 mmol/L (98-107); Glomerular Filtration Rate 29.2 mL/min (90-130); Glucose 243 mg/dL (65-115); Osmolality Calculated 289 mOsm/kg (285-295); Potassium 5.8 mmol/L (3.5-5.1); Sodium 137 mmol/L (136-145)
[2020-03-16 06:51] LABS: Glucose Point of Care 244 mg/dL (70-110)
[2020-03-16] MEDS: multivitamin therapeutic Tablet 1 TAB PO (08:32)
[2020-03-16] MEDS: atorvastatin 40 mg Tablet 20 MG PO (08:32)
[2020-03-16] MEDS: tamsulosin 0.4 mg Capsule PO (08:33)
[2020-03-16] MEDS: sitagliptin 100 mg Tablet PO (08:33)
[2020-03-16] MEDS: gabapentin 300 mg Capsule PO ×2 (08:33→17:47)
[2020-03-16] MEDS: pramipexole 0.25 mg Tablet PO (08:33)
[2020-03-16] MEDS: aspirin 81 mg EC Tablet PO (08:33)
[2020-03-16] MEDS: lisinopril 10 mg Tablet PO (08:34)
[2020-03-16] MEDS: amlodipine 10 mg Tablet PO (08:34)
[2020-03-16] MEDS: pantoprazole DR 40 mg Tablet PO (08:34)
[2020-03-16] MEDS: oxyCODONE-APAP 5-325 mg Tablet 1 TAB PO (08:36)
--- NOTE | 2020-03-16 09:53 | PC.CHAP ---
Pastoral Care Encounter/Spiritual Assessment Type of Contact [] Declined crossword puzzle maker visit [] Patient/Family/Request visit [] Outpatient visit [] Follow-up visit [] Physician referral [] Code/Alert [x] Routine visit [] Staff referral [] Actively dying [] Patient sleeping [] Family support [] [] Out of room [] Palliative care [] [] Receiving care in room [] Pre-surgical visit [] Trauma [] Long length of stay [] ICU visit [] Other: Relational/Emotional Strength [] Patient feels connected with others/family/visitors/staff [] Distress [] Loneliness/isolation [] Abandonment Spirituality of Patient [] Person of Nita [] Attends Latter-Day of their Nita [] Believes in Prayer [] Reads Bible or Yarsanism materials [] There are Spiritual issues to be addressed Computer Forwarding System Markup Clerk Interventions [x] Prayer [] Active listening [] Non-anxious presence [] Spiritual/emotional support [] Crisis/trauma care [] Spiritual counseling [] Bereavement support [] Provided bereavement packet [] Provided Bible/devotional materials [] Provided toy/stuffed animal, coloring book to patient or family member [] Provided Communion [] Anointing/[place] [] Salvation [x] Completed spiritual assessment [] Other: Impact on Illness or Injury [] Angry [] Fearful [] Anxious [] Often cries [] Exhaustion [] Unable to work [] Unable to attend tenriism [] Unable to walk/stand [] Unable to read [] Unable to drive [] Unable to eat/drink [] Unable to sleep [] Unable to be with family [] Patient intubated [] Other: Summary Patient feeling stronger. Patient enjoying breakfast Time spent with patient 10 min
[2020-03-16 11:07] LABS: Glucose Point of Care 351 mg/dL (70-110)
[2020-03-16] MEDS: sodium chloride 0.9% 1,000 ML 100 ML IV ×2 (11:07→22:28)
--- NOTE | 2020-03-16 11:36 | PM.DCS ---
Discharge Providers Date of Admission: 03/15/20 17:29 Date of Discharge: March 16, 2020 Attending Provider at Admission: Gregory Howell DO Attending Provider at Discharge: Gregory Howell DO Primary Care Provider: MADELEINE Waldrop Diagnoses at Discharge Discharge Diagnosis (1) Fracture dislocation of ankle: Status: Acute Qualifiers: Encounter type: initial encounter Fracture type: open Laterality: right Open fracture type: open type I or II Qualified Code(s): S82.891B - Other fracture of right lower leg, initial encounter for open fracture type I or II (2) Diabetes: Status: Chronic Qualifiers: Diabetes mellitus type: type 2 Diabetes mellitus fpc insulin use: with fpc use Diabetes mellitus complication status: with kidney complications Diabetes mellitus complication detail: with chronic kidney disease Chronic kidney disease stage: unspecified stage Qualified Code(s): E11.22 - Type 2 diabetes mellitus with diabetic chronic kidney disease; Z79.4 - intermediate teacher (current) use of insulin (3) Postoperative urinary retention: Status: Acute Reason for Visit Reason for Visit: Reason For Visit: RIGHT ANKLE DEFORMITY Discharge Data Data Completed and Pending: Completed Studies During Hospitalization Category Date Time Status XR ankle RT 2V 73 600 Routine Exams 03/15/20 Completed XR ankle RT 2V 73 600 Stat Exams 03/15/20 18:05 Completed XR ankle RT min 3 V* 22786 Stat Exams 03/15/20 15:52 Completed Labs from last 24 hours 03/16/20 03/16/20 03/16/20 11:00 06:46 05:43 WBC RBC Hgb Hct MCV MCH MCHC RDW Plt Count MPV Neut % (Auto) Lymph % (Auto) [place] % (Auto) Eos % (Auto) Baso % (Auto) Neut # (Auto) Lymph # (Auto) [place] # (Auto) Eos # (Auto) Baso # (Auto) Nucleated RBC % (a uto) Nucleated RBCs # PT INR APTT Sodium 137 Potassium 5.8 H Chloride 103 Carbon Dioxide 23 Anion Gap 16.8 BUN 33 H Creatinine 2.3 H GFR Calculation 29.2 L Glucose 243 H POC Glucose 351 244 Calculated Osmolal ity 289 Calcium 8.6 Total Bilirubin AST ALT Alkaline Phosphata se Total Protein Albumin Globulin 03/16/20 03/16/20 03/15/20 05:43 03:38 17:05 WBC 12.4 H RBC 3.81 L Hgb 10.9 L Hct 36.1 L MCV 94.8 H MCH 28.6 MCHC 30.2 D RDW 13.1 Plt Count 228 MPV 11.8 H Neut % (Auto) 80.1 Lymph % (Auto) 9.7 [place] % (Auto) 8.9 Eos % (Auto) 0.6 Baso % (Auto) 0.2 Neut # (Auto) 9.9 H Lymph # (Auto) 1.2 [place] # (Auto) 1.1 H Eos # (Auto) 0.1 Baso # (Auto) 0.0 Nucleated RBC % (a uto) 0 Nucleated RBCs # 0.0 PT 13.00 INR 0.95 APTT 28.0 Sodium Potassium Chloride Carbon Dioxide Anion Gap BUN Creatinine GFR Calculation Glucose POC Glucose 240 Calculated Osmolal ity Calcium Total Bilirubin AST ALT Alkaline Phosphata se Total Protein Albumin Globulin 03/15/20 03/15/20 17:05 17:05 WBC 11.4 H RBC 3.94 L Hgb 11.8 Hct 36.6 L MCV 92.9 MCH 29.9 MCHC 32.2 RDW 12.8 Plt Count 240 MPV 11.6 H Neut % (Auto) 77.2 Lymph % (Auto) 12.4 [place] % (Auto) 7.9 Eos % (Auto) 1.6 Baso % (Auto) 0.3 Neut # (Auto) 8.8 H Lymph # (Auto) 1.4 [place] # (Auto) 0.9 Eos # (Auto) 0.2 Baso # (Auto) 0.0 Nucleated RBC % (a uto) 0 Nucleated RBCs # 0.0 PT INR APTT Sodium 135 L Potassium 5.0 Chloride 99 Carbon Dioxide 23 Anion Gap 18.0 BUN 40 H Creatinine 2.1 H GFR Calculation 32.4 L Glucose 311 H POC Glucose Calculated Osmolal ity 289 Calcium 8.9 Total Bilirubin 0.2 AST 21 ALT 20 Alkaline Phosphata se 112 Total Protein 7.0 Albumin 4.1 Globulin 2.9 Vitals: Last Vital Signs Temp 98.4 F 03/16/20 11:23 Pulse 104 H 03/16/20 11:23 Resp 16 03/16/20 11:23 BP 128/70 03/16/20 11:23 Pulse Ox 90 03/16/20 11:23 Discharge Plan Discharge Patient Disposition: Home, Self-Care Condition: Stable Prescriptions: New oxycodone-acetaminophen 5-325 mg tablet 1 tab PO Q4H PRN (Reason: pain) Qty: 40 RF: 0 cefuroxime axetil 500 mg tablet 500 mg PO BID 7 Days Qty: 14 RF: 0 Continued pantoprazole 40 mg tablet,delayed release (DR/EC) 40 mg PO DAILY 90 Days Qty: 90 RF: 1 pramipexole 0.25 mg tablet 0.25 mg PO DAILY 90 Days Qty: 90 RF: 1 lovastatin 20 mg tablet 20 mg PO DAILY 90 Days Qty: 90 RF: 1 gabapentin 300 mg capsule 300 mg PO BID 90 Days Qty: 180 RF: 1 amlodipine 10 mg tablet 10 ea PO DAILY RF: 0 (DME) pen needle, diabetic 31 gauge x 1/4 needle See Rx Instructions ea .ROUTE .MEDSUPPLY Qty: 30 RF: 0 (DME) FreeStyle Michaela 14 Day Sensor Kit See Rx Instructions .ROUTE .MEDSUPPLY Qty: 1 RF: 0 liraglutide 0.6 mg/0.1 mL (18 mg/3 mL) pen injector 1.8 mg SUBCUT DAILY Qty: 9 RF: 2 Levemir FlexTouch U-100 Insuln 100 unit/mL (3 mL) insulin pen 40 unit SUBCUT DAILY 90 Days Qty: 15 RF: 1 lisinopril 10 mg tablet 10 mg PO DAILY Qty: 30 RF: 2 glipizide 10 mg tablet 10 mg PO DAILY Qty: 30 RF: 2 amitriptyline 100 mg tablet 200 mg PO .at bedtime PRN (Reason: insomnia) Qty: 60 RF: 2 Januvia 100 mg tablet 100 mg PO DAILY 90 Days Qty: 90 RF: 1 tamsulosin 0.4 mg capsule 0.4 mg PO DAILY RF: 0 Multiple Vitamins Tablet 1 tab PO DAILY RF: 0 Vitamin C 1,000 mg Tablet Extended Release 1,000 mg PO Q12H RF: 0 aspirin 81 mg Tablet,Delayed Release (Dr/Ec) 81 mg PO DAILY RF: 0 iron 325 mg (65 mg iron) Tablet 325 mg PO DAILY RF: 0 Acetaminophen PM 25-500 mg Tablet 1 tab PO BEDTIME PRN (Reason: Sleep) RF: 0 Discharge Orders: Discharge Order (Routine); Ordered 03/16/20 Ordered By: Gregory Howell Referrals: VERONICA Ordonez, OPERATIONS AND MAINTENANCE SPECIALIST [Primary Care Provider] - Gregory Howell DO [Physician] - 03/30/20 (Call for appointment time at [phone]. At your follow-up visit we will remove your splint, will assess your surgical site for staple removal. We will also assess the area of skin injury on the inner aspect of your ankle created by your fracture dislocation.) Discharge Diet: Diabetic Discharge Activity: Limit activity as instructed and Use walker/crutches as instructed Activity Restrictions/Additional Instructions: Keep splint on Keep splint clean and dry Elevate right ankle to decrease pain and swelling May shower with plastic bag over splint No weightbearing on right lower extremity Walker ambulation as needed No walking on right leg may perform ankle pumps of both ankles and isometric contractions of calf and thigh muscles as well as gluteal squeezes to decrease risk of blood clots and atrophy Call office at [phone] if any questions and concerns and also call the office to set up your appointment for March 30 time of the appointment to be determined Please take the cefuroxime antibiotic 1 twice a day for 7 days for extended oral prophylaxis to prevent infection following surgery. Percocet or oxycodone/acetaminophen may take 1 every 4 hours as needed for pain. Discharge Attestations Time Spent in Discharge Care*: less than 30 min Status at Discharge: Cognitive status at discharge: cognitively intact, Behavioral status at discharge: cooperative, Functional status at discharge: uses cane/walker Overall status at discharge: patient is progressing back to baseline Coding Level of Care Code Acute Guest Relations Officer for [facility] Fwd Diagnoses Fracture dislocation of ankle S82.891B Encounter type: initial encounter Fracture type: open Laterality: right Open fracture type: open type I or II Diabetes E11.22; Z79.4 Diabetes mellitus type: type 2 Diabetes mellitus fpc insulin use: with ocean transportation intermediary use Diabetes mellitus complication status: with kidney complications Diabetes mellitus complication detail: with chronic kidney disease Chronic kidney disease stage: unspecified stage Postoperative urinary retention N99.89; R33.8
--- NOTE | 2020-03-16 14:27 | P.PN_ITS ---
Subjective Subjective: Interval history: This morning patient is quite anxious, really wants to go home today, but when working with physical therapy, patient needs assistance with ambulation, no fevers, chills, no nausea, no vomiting Vitals/I&O/Wt Last Vital Signs Temp 98.4 F 03/16/20 11:23 Pulse 104 H 03/16/20 11:23 Resp 16 03/16/20 11:23 BP 128/70 03/16/20 11:23 Pulse Ox 90 03/16/20 11:23 03/15/20 03/16/20 03/16/20 22:59 06:59 14:59 Intake Total 100 / 100 50 / 150 290 / 290 Output Total Balance 100 / 100 30 / 130 290 / 290 Weight last 48 hrs Weight 113.398 kg Physical Exam Const: COMMON NORMALS: no acute distress and patient oriented x3 HENMT: COMMON NORMALS: normocephalic HEAD & SCALP: normocephalic Neck/C-Spine: COMMON NORMALS: no JVD Resp: COMMON NORMALS: normal respiratory effort, No retractions, No use of accessory muscles and clear to auscultation bilaterally AUSCULTATION: clear to auscultation bilaterally Cardio: COMMON NORMALS: no JVD, regular rate, regular rhythm, S1 normal heart sound present and S2 normal heart sound present RATE: regular rate RHYTHM: regular rhythm HEART SOUNDS: S1 normal heart sound present and S2 normal heart sound present GI: COMMON NORMALS: Normal to inspection, nondistended, normoactive bowel sounds present, Soft to palpation, non-tender, No hepatosplenomegaly present, no masses and no bruits PALPATION: Yes Soft to palpation and Yes No hepatosplenomegaly present Extremity: COMMON NORMALS: capillary refill normal, no clubbing, cyanosis or edema and no pedal edema NARRATIVE EXTREMITY EXAM: Left lower extremity in a cast Neuro: COMMON NORMALS: patient oriented x3 Psych: COMMON NORMALS: mental status grossly normal Data : 03/16/20 05:43 03/16/20 05:43 A&P Assessment and plan (1) Fracture dislocation of ankle: -Status post open reduction internal fixation right lateral malleolus with plate and screws -pain control and anticoagulation as per orthopedic team -Has postoperative urinary retention, will require Lisa on discharge, outpatient follow-up with urology -Follow-up with Dr. Howell -he is quite unsteady on his feet, will recommend 1 more day of inpatient physical therapy, or intermediate placement - Status: Acute Qualifiers: Encounter type: initial encounter Fracture type: open Laterality: right Open fracture type: open type I or II Qualified Code(s): S82.891B - Other fracture of right lower leg, initial encounter for open fracture type I or II (2) Type 2 diabetes mellitus with other specified complication: -Low-dose sliding scale -Levemir 40 units daily Status: Acute Qualifiers: Diabetes mellitus assistant terminal manager insulin use: without assistant terminal manager use Qualified Code(s): E11.69 - Type 2 diabetes mellitus with other specified complication (3) BPH (benign prostatic hyperplasia): Status: Chronic Qualifiers: Lower urinary tract symptom presence: symptoms present Lower urinary tract symptom detail: incomplete bladder emptying Qualified Code(s): N40.1 - Benign prostatic hyperplasia with lower urinary tract symptoms; R39.14 - Feeling of incomplete bladder emptying (4) Postoperative urinary retention: Status: Acute (5) Acute kidney injury superimposed on CKD: -Creatinine has increased to 2.3 -baseline creatinine is 1.6 -will require IV hydration and sedation Status: Acute Attestations Medical Necessity Statement*: Patient requires hospitalization for fracture dislocation of ankle, SIENNA, Coding Level of Care Code Acute Temperature Regulator Pyrometer for [facility] Diagnoses Fracture dislocation of ankle S82.891B Encounter type: initial encounter Fracture type: open Laterality: right Open fracture type: open type I or II Type 2 diabetes mellitus with other specified complication E11.69 Diabetes mellitus skilled nursing insulin use: without skilled nursing use BPH (benign prostatic hyperplasia) N40.1; R39.14 Lower urinary tract symptom presence: symptoms present Lower urinary tract symptom detail: incomplete bladder emptying Postoperative urinary retention N99.89; R33.8 Acute kidney injury superimposed on CKD N17.9; N18.9
--- NOTE | 2020-03-16 16:06 | PC.NURSE ---
Spoke with Melly patient's significant other at this time. Updated Melly that patient will be staying another night. Patient stated that he has not seen his cell phone since breakfast this morning. This nurse has never seen this patient's cell phone. Melly states that patient did have his cell phone and that he spoke to her on it this morning. Checked the with dietary and went through all of patient's liens at this time I have been unable to find patient's phone at this time.
[2020-03-16 17:07] LABS: Glucose Point of Care 186 mg/dL (70-110)
[2020-03-16 21:33] LABS: Glucose Point of Care 180 mg/dL (70-110)
[2020-03-17] VITALS (12 sets, daily range): BP systolic 108–145; BP diastolic 59–70; PULSE 76–109; RESP 16–22; TEMP 36.5–38.1; O2SAT 90–96
[2020-03-17] MEDS: morphine 4 mg/mL SDV 1 mL 2 MG IVP (01:01)
[2020-03-17] MEDS: oxyCODONE-APAP 5-325 mg Tablet 1 TAB PO (05:56)
[2020-03-17 06:15] LABS: Basophils % 0.2 %; Eosinophils # 0.1 10^3/uL (0.0-0.8); Eosinophils % 0.5 %; Hematocrit 35.9 % (42.0-52.0); Hemoglobin 10.8 g/dL (11.7-16.6); Lymphocytes # 1.3 10^3/uL (0.8-4.8); Lymphocytes % 9.8 %; Mean Corpuscular HGB Conc 30.1 g/dL (30.0-36.0); Mean Corpuscular Hemoglobin 28.6 pg (28.0-34.0); Mean Corpuscular Volume 95.2 fL (80-94); Mean Platelet Volume 11.7 fL (7.4-10.4); Monocytes # 1.6 10^3/uL (0.2-0.9); Monocytes % 12.4 %; Neutrophils % 76.6 %; Nucleated Red Blood Cells % 0 %; Platelet Count 226 10^3/cmm (130-400); Red Blood Count 3.77 10^6/uL (4.1-5.3); Red Cell Distribution Width 13.3 % (12.1-15.1)
[2020-03-17 06:42] LABS: Alanine Aminotransferase 19 U/L (0-41); Albumin Level 3.3 g/dL (3.5-5.2); Alkaline Phosphatase 109 IU/L (40-130); Anion Gap 18.5 (5-19); Aspartate Amino Transferase 39 U/L (0-40); Blood Urea Nitrogen 37 mg/dL (8-23); Calcium 8.4 mg/dL (8.5-10.5); Carbon Dioxide 19 mmol/L (22-29); Chloride 106 mmol/L (98-107); Globulin 3.3 g/dL (1.3-4.6); Glomerular Filtration Rate 41.3 mL/min (90-130); Glucose 211 mg/dL (65-115); Magnesium 2.1 mg/dL (1.7-2.3); Osmolality Calculated 290 mOsm/kg (285-295); Phosphorus 2.8 mg/dL (2.5-4.5); Potassium 5.5 mmol/L (3.5-5.1); Sodium 138 mmol/L (136-145); Total Bilirubin 0.3 mg/dL (0.15-1.2); Total Protein 6.6 g/dL (6.6-8.7)
[2020-03-17 06:50] LABS: Glucose Point of Care 210 mg/dL (70-110)
[2020-03-17] MEDS: sodium chloride 0.9% 1,000 ML 100 ML IV (08:33)
[2020-03-17] MEDS: multivitamin therapeutic Tablet 1 TAB PO (08:35)
[2020-03-17] MEDS: amlodipine 10 mg Tablet PO (08:36)
[2020-03-17] MEDS: aspirin 81 mg EC Tablet PO (08:36)
[2020-03-17] MEDS: tamsulosin 0.4 mg Capsule PO (08:36)
[2020-03-17] MEDS: gabapentin 300 mg Capsule PO ×2 (08:36→17:53)
[2020-03-17] MEDS: sitagliptin 100 mg Tablet PO (08:36)
[2020-03-17] MEDS: atorvastatin 40 mg Tablet 20 MG PO (08:37)
[2020-03-17] MEDS: pantoprazole DR 40 mg Tablet PO (08:37)
[2020-03-17] MEDS: pramipexole 0.25 mg Tablet PO (08:37)
[2020-03-17] MEDS: fixodent 39 gm Tube 1 APPLIC DENTAL (10:31)
[2020-03-17 10:52] LABS: Glucose Point of Care 220 mg/dL (70-110)
--- NOTE | 2020-03-17 14:23 | PM.PN ---
Subjective Subjective: Interval history: 59-year-old white male postoperative day 2 status post ORIF right lateral malleolus fracture following fracture dislocation of the right ankle. Is dislocation was reduced in the emergency room. He had a trimalleolar fracture equivalent. He had a sprain of the deltoid ligament but no fracture, a posterior malleolus fracture and a displaced lateral malleolus fracture. His posterior malleolar fracture reduced satisfactorily and maintain that way following open external fixation of lateral minus fracture. We restored symmetric spacing about the ankle mortise despite the medial deltoid ligament sprain. We stressed the distal tibiofibular joint/syndesmosis during the surgery with rotational stress to the ankle as well as mechanically above the distal tibiofibular joint with a periosteal elevator. There is no displacement of the distal tibiofibular joint relationship the distal fibula with the distal tibia. The patient wanted to be discharged yesterday to home however he was unable to transfer safely and he had a repeat episode of urinary retention with for which a Lisa catheter was placed by the hospital team. His absolute remained in-house overnight. He would like to go home today however he would not be safe to go home as he needs to be nonweightbearing on his right lower extremity and needs to be able to transfer by hopping on his left lower extremity. He is deconditioned. He is at high risk because of his diabetic neuropathy of placing too much weight on the right lower extremity and causing to displace. As I told him prior to surgery at least at risk for developing a neuropathic joint following surgery because of his long-standing diabetes. The patient is willing to stay in the hospital today for safety to work on rehabilitation and is willing to consider transfer to a skilled facility until he is able to weight-bear on his right lower extremity the soonest of which I believe would be at 4 weeks from the date of his surgery. He has no complaints of pain. He would like his Lisa catheter removed. Vitals/I&O/Wt Last Vital Signs Temp 97.7 F 03/17/20 11:14 Pulse 92 03/17/20 11:14 Resp 22 H 03/17/20 11:14 BP 118/68 03/17/20 11:14 Pulse Ox 93 03/17/20 11:14 03/16/20 03/17/20 03/17/20 22:59 06:59 14:59 Intake Total 2135 / 2525 240 / 2765 1120 / 1120 Output Total 300 / 300 300 / 300 Balance 1835 / 2225 240 / 2465 820 / 820 Weight last 48 hrs Weight 250 lb Physical Exam Narrative: EXAM NARRATIVE: 59-year-old white male. Obese body habitus. In no acute distress. He is alert and cooperative. His splint on his right lower extremity is clean dry and intact. Toes of the right foot have normal capillary refill. He has difficulty with going from sitting on the edge of the bed to attempting to stand. He becomes tachycardic but is able to maintain his oxygen saturation 96% while on supplemental oxygen. He clearly is having difficulty simply standing at the bedside. Lisa catheter is in place draining clear urine. Urinary Catheter Management^: Lisa: Cath Placed During This Visit: yes Reason for Continuing Indwelling Catheter: Acute Urinary Retention or Obstruction Urinary Catheter Date of Insertion: 03/16/20 Urinary Catheter Time of Insertion: 17:30 Data : 03/17/20 06:01 03/17/20 06:01 A&P Assessment and plan (1) Fracture dislocation of ankle: Status: Acute Qualifiers: Encounter type: initial encounter Fracture type: open Laterality: right Open fracture type: open type I or II Qualified Code(s): S82.891B - Other fracture of right lower leg, initial encounter for open fracture type I or II (2) Diabetic neuropathy: Status: Acute Qualifiers: Diabetes mellitus type: type 2 Diabetes mellitus complication detail: diabetic polyneuropathy Qualified Code(s): E11.42 - Type 2 diabetes mellitus with diabetic polyneuropathy (3) Acute kidney injury superimposed on CKD: Status: Acute (4) Postoperative urinary retention: Status: Acute (5) BPH (benign prostatic hyperplasia): Status: Chronic Qualifiers: Lower urinary tract symptom presence: symptoms present Lower urinary tract symptom detail: incomplete bladder emptying Qualified Code(s): N40.1 - Benign prostatic hyperplasia with lower urinary tract symptoms; R39.14 - Feeling of incomplete bladder emptying Attestations Medical Necessity Statement*: patient requires continued inpatient level care due to inability be safely discharged home. We'll continue aggressive rehabilitation efforts but he may require transfer to skilled facility. He continues to have issues with urinary retention. Time Spent in Patient Care: 16 - 35 minutes (>than 50% of time spent in counselling and/or direct pt care on unit). Coding Level of Care Code Acute Marketing Underwriter for [facility] Fwd Diagnoses Fracture dislocation of ankle S82.891B Encounter type: initial encounter Fracture type: open Laterality: right Open fracture type: open type I or II Diabetic neuropathy E11.42 Diabetes mellitus type: type 2 Diabetes mellitus complication detail: diabetic polyneuropathy Acute kidney injury superimposed on CKD N17.9; N18.9 Postoperative urinary retention N99.89; R33.8 BPH (benign prostatic hyperplasia) N40.1; R39.14 Lower urinary tract symptom presence: symptoms present Lower urinary tract symptom detail: incomplete bladder emptying
--- NOTE | 2020-03-17 14:25 | CTR_ITS ---
PROCEDURE INFORMATION: Exam: CT Chest Without Contrast Exam date and time: 03/17/2020 3:01 PM Age: 59 years old Clinical indication: Shortness of breath; Additional info: Copd TECHNIQUE: Imaging protocol: Computed tomography of the chest without contrast. Radiation optimization: All CT scans at this facility use at least one of these dose optimization techniques: automated exposure control; mA and/or kV adjustment per patient size (includes targeted exams where dose is matched to clinical indication); or iterative reconstruction. COMPARISON: CR Chest 2 views* [id number] 07/22/2018 3:14 PM RADIATION DOSE METRICS: Total DLP: 908.23 mGy-cm FINDINGS: Thyroid: Normal variant azygos lobe. Lungs: There is minimal consolidation at the posterior aspects of the lungs most consistent with dependent atelectatic change. There are pulmonary parenchymal calcifications consistent with remote granulomatous organism exposure. Pleural space: Unremarkable. No pneumothorax. No pleural effusion. Heart: There is calcified plaque in the coronary arteries. Aorta: Unremarkable. No aortic aneurysm. Lymph nodes: There are calcified mediastinal and perihilar lymph nodes consistent with prior granulomatous exposure. Gallbladder and bile ducts: The gallbladder is distended. There is some homogeneous increased density in the gallbladder. Pancreas: There is fatty atrophy of the pancreas Bones/joints: There are degenerative changes in the visualized spine with partial osseous fusion across multiple midthoracic vertebra. Soft tissues: Unremarkable. CT/CT chest wo con [id number] IMPRESSION: 1. There is minimal consolidation at the posterior aspects of the lungs most consistent with dependent atelectatic change. 2. Gallbladder is distended. There is increased density within the gallbladder raising concern for sludge. Consider right upper quadrant ultrasound for further evaluation as clinically warranted. Radiation Dose CTDIVOL = (mGy): DLP = 908.23 (mGy-cm)
[2020-03-17 15:04] LABS: Procalcitonin 0.82 ng/mL (0-0.5)
[2020-03-17] MEDS: ipratropium-albuterol 3 mL Neb INHALATION ×2 (16:11→20:16)
[2020-03-17 16:12] LABS: Glucose Point of Care 203 mg/dL (70-110)
--- NOTE | 2020-03-17 18:07 | P.PN_ITS ---
Subjective Subjective: Interval history: No acute events overnight. Patient has worked better with physical therapy today. Patient does need frequent reminding during physical therapy not to put weight on his nonbearing foot for now. Patient denies of having nausea, vomiting, fevers, chills. Patient does need assistance with ambulation for now. Vitals/I&O/Wt Last Vital Signs Temp 97.8 F 03/17/20 15:21 Pulse 104 H 03/17/20 16:13 Resp 16 03/17/20 16:13 BP 130/59 03/17/20 15:21 Pulse Ox 94 03/17/20 16:13 03/17/20 03/17/20 03/17/20 06:59 14:59 22:59 Intake Total 240 / 2765 1565 / 1565 0 / 1565 Output Total 300 / 300 600 / 900 Balance 240 / 2465 1265 / 1265 -600 / 665 Physical Exam Narrative: EXAM NARRATIVE: General: No acute distress, AO x3 HEENT: PERRLA, pupils bilaterally equal and reactive Chest: Normal vesicular breath sounds, no added sounds, equal good air entry bilaterally CVS: S1-S2 regular, no murmurs, no tachycardia, no gallops, no rubs Abdomen: Soft, nontender, no organomegaly, bowel sounds present Neuro: No focal deficits, no facial deformity, AO x3, power 5/5 in all limbs: Extremities: Right lower limb splint present clean and dry and intact. Capillary refill normal in the right toes. Urinary Catheter Management^: Lisa: Cath Placed During This Visit: yes Reason for Continuing Indwelling Catheter: Acute Urinary Retention or Obstruction Urinary Catheter Date of Insertion: 03/16/20 Urinary Catheter Time of Insertion: 17:30 Data : 03/17/20 06:01 03/17/20 06:01 A&P Assessment and plan (1) Fracture dislocation of ankle: Status: Acute Qualifiers: Encounter type: initial encounter Fracture type: open Laterality: right Open fracture type: open type I or II Qualified Code(s): S82.891B - Other fracture of right lower leg, initial encounter for open fracture type I or II (2) Type 2 diabetes mellitus with other specified complication: Status: Acute Qualifiers: 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 Qualified Code(s): E11.69 - Type 2 diabetes mellitus with other specified comp lication (3) BPH (benign prostatic hyperplasia): Status: Chronic Qualifiers: Lower urinary tract symptom presence: symptoms present Lower urinary tract symptom detail: incomplete bladder emptying Qualified Code(s): N40.1 - Benign prostatic hyperplasia with lower urinary tract symptoms; R39.14 - Feeling of incomplete bladder emptying (4) Postoperative urinary retention: Status: Acute (5) Acute kidney injury superimposed on CKD: Status: Acute Additional A&P Information Fracture dislocation of ankle: Status post ORIF by Dr. Howell of right trimalleolar fracture after mechanical fall. Continue pain management as per Dr. Howell. Continue physical therapy/anticoagulation as per Dr. Howell. BPH: Postoperative urinary retention: Patient had Lisa placed yesterday. Will discontinue Lisa today and see how he does. Continue with Flomax 0.4 mg daily. History of diabetes: Continue Levemir 40 units daily, insulin sliding scale, Januvia. Will hold the rest of the medications. Hypertension. Currently well controlled. Continue home dose of amlodipine. Continue holding lisinopril for now given SIENNA on CKD. SIENNA: Baseline creatinine now 1.7. Creatinine back to baseline today. Patient is requiring oxygen at 2 L to maintain a saturation over 96%. We will decrease the oxygen supplementation keeping saturation over 92%. Check CT chest to rule out pneumonia, procalcitonin even though procalcitonin could be mildly elevated because of SIENNA. Discontinue IV fluids. Patient will most likely need home O2 evaluation prior to discharge. Patient is doing well with physical therapy but continues to put weight on not weightbearing foot. Most likely because patient is not having any pain sensation given nephropathy. Patient is at high danger of developing Charcot's foot. Will discuss with Dr. Howell if patient would need SNF placement. Full code. Heparin for DVT prophylaxis Carb consistent diet. Attestations Medical Necessity Statement*: As per primary team. 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
[2020-03-17] MEDS: heparin 5,000 unit/mL INJ 1 mL 5000 UNIT SUBCUT (20:49)
[2020-03-17 21:13] LABS: Glucose Point of Care 208 mg/dL (70-110)
--- NOTE | 2020-03-17 23:14 | PC.NURSE ---
Dayshift nurse removed Pt's catheter before shift change, Pt then urinated on himself, changed Pt with help from OZIEL Enciso, Pt tolerated well. Pts significant other called, nurse updated her on Pt's condition, reported to significant other that Pt is able to urinate on his own.
[2020-03-18] VITALS (13 sets, daily range): BP systolic 94–122; BP diastolic 48–71; PULSE 69–112; RESP 16–22; TEMP 36.8–38.4; O2SAT 86–96
--- NOTE | 2020-03-18 01:37 | PC.NURSE ---
TOOL LIAISON reported vitals signs for patient being out of normal limits, VS read as follows: HR 112, O2 89% 2LPM NC, T 101.2, and BP 94/48, now has confusion, attempting to call doctor, no answer at this point. Will keep trying.
--- NOTE | 2020-03-18 02:25 | XRR_ITS ---
PROCEDURE INFORMATION: Exam: XR Chest, 1 View Exam date and time: 03/18/2020 7:07 AM Age: 59 years old Clinical indication: Shortness of breath; Additional info: Altered mental status and hypoxia TECHNIQUE: Imaging protocol: XR of the chest Views: 1 view. COMPARISON: CR Chest 2 views* [id number] 07/22/2018 3:14 PM FINDINGS: Tubes, catheters and devices: Interval removal of right PICC line. Lungs: Hypoinflation and chronic granulomatous disease. Mild left basilar airspace/pleural disease. Heart/Mediastinum: No cardiomegaly. Bones/joints: Degenerative change. XR/XR chest 1V portable [id number] IMPRESSION: Mild left basilar airspace/pleural disease.
[2020-03-18 03:30] LABS: Protein Urine Neg (Negative); Urine Appearance SL Hazy (CLEAR); Urine Color Yellow (Yellow); pH Urine 5 (5-7)
[2020-03-18 03:31] LABS: Add Urine Microscopic? YES; Bacteria Urine TRACE; Bilirubin Urine Neg (NEGATIVE); Blood Urine 2+ (Negative); Glucose Urine UA Norm (Normal); Ketones Urine 1+ (Negative); Leukocyte Esterase Urine Negative (Negative); Nitrate Urine Negative (Negative); RBC Urine 0-4 /hpf (0-2); Squamous Epithelial Cell Urine 0-4 (0-5); Urobilinogen Urine 1 mg/dL (Negative); WBC Urine 0-4 /hpf (0-5)
[2020-03-18 03:32] LABS: Add Urine Culture? No; Amorphous Sediment Urine 1+; Mucus Urine TRACE
[2020-03-18 03:33] LABS: Alanine Aminotransferase 18 U/L (0-41); Albumin Level 3.5 g/dL (3.5-5.2); Alkaline Phosphatase 142 IU/L (40-130); Anion Gap 16.8 (5-19); Aspartate Amino Transferase 35 U/L (0-40); Blood Urea Nitrogen 34 mg/dL (8-23); Calcium 8.1 mg/dL (8.5-10.5); Carbon Dioxide 20 mmol/L (22-29); Chloride 102 mmol/L (98-107); Globulin 3.1 g/dL (1.3-4.6); Glomerular Filtration Rate 41.3 mL/min (90-130); Glucose 218 mg/dL (65-115); Osmolality Calculated 280 mOsm/kg (285-295); Potassium 5.8 mmol/L (3.5-5.1); Sodium 133 mmol/L (136-145); Total Bilirubin 0.4 mg/dL (0.15-1.2); Total Protein 6.6 g/dL (6.6-8.7)
[2020-03-18 03:42] LABS: NT Pro B Type Natriuretic Pept 717 pg/mL (0-125)
[2020-03-18 03:45] LABS: Basophils % 0.2 %; Eosinophils % 0.2 %; Hematocrit 34.8 % (42.0-52.0); Hemoglobin 10.8 g/dL (11.7-16.6); Lymphocytes # 1.2 10^3/uL (0.8-4.8); Lymphocytes % 7.6 %; Mean Corpuscular Hemoglobin 29.3 pg (28.0-34.0); Mean Corpuscular Volume 94.3 fL (80-94); Mean Platelet Volume 11.5 fL (7.4-10.4); Monocytes # 1.8 10^3/uL (0.2-0.9); Monocytes % 10.7 %; Neutrophils # 13.2 10^3/uL (1.8-7.7); Neutrophils % 80.7 %; Nucleated Red Blood Cells % 0 %; Platelet Count 267 10^3/cmm (130-400); Red Blood Count 3.69 10^6/uL (4.1-5.3); Red Cell Distribution Width 13.4 % (12.1-15.1); White Blood Count 16.3 10^3/uL (4.0-10.0)
[2020-03-18] MEDS: ipratropium-albuterol 3 mL Neb INHALATION ×4 (04:05→21:39)
[2020-03-18 05:06] LABS: Procalcitonin 2.89 ng/mL (0-0.5)
[2020-03-18] MEDS: heparin 5,000 unit/mL INJ 1 mL 5000 UNIT SUBCUT ×2 (05:44→18:20)
[2020-03-18 06:47] LABS: ABG PCO2 37.3 mmHg (35-45); ABG PH Result 7.31 (7.35-7.45); Arterial Blood Gas Hematocrit 43.5 % (42-52); Base Excess ABG -7.1 mmol/L (-2.0-2.0); Blood Gas Allen Test Pos; Blood Gas Sample Site Radial, right; Blood Gas Sample Type Arterial; HCO3 ABG 18.6 mmol/L (22-26); Oxygen Device NC; PO2 ABG 85.2 mmHg (80.0-100.0)
[2020-03-18 06:52] LABS: Glucose Point of Care 300 mg/dL (70-110)
[2020-03-18] MEDS: multivitamin therapeutic Tablet 1 TAB PO (09:46)
[2020-03-18] MEDS: pramipexole 0.25 mg Tablet PO (09:46)
[2020-03-18] MEDS: sitagliptin 100 mg Tablet PO (09:46)
[2020-03-18] MEDS: amlodipine 10 mg Tablet PO (09:46)
[2020-03-18] MEDS: atorvastatin 40 mg Tablet 20 MG PO (09:47)
[2020-03-18] MEDS: tamsulosin 0.4 mg Capsule PO (09:48)
[2020-03-18] MEDS: pantoprazole DR 40 mg Tablet PO (09:48)
[2020-03-18] MEDS: aspirin 81 mg EC Tablet PO (09:48)
[2020-03-18] MEDS: gabapentin 300 mg Capsule PO ×2 (09:48→18:20)
[2020-03-18 11:29] LABS: Glucose Point of Care 317 mg/dL (70-110)
[2020-03-18] MEDS: HYDROcodone-acetaminophen 5-325 mg Tablet 1 TAB PO (12:13)
[2020-03-18] MEDS: piperacillin-tazobactam 3.375 GM in sodium chloride 0.9% (plus) 50 ML IV ×2 (12:33→21:31)
--- NOTE | 2020-03-18 12:38 | USR_ITS ---
PROCEDURE INFORMATION: Exam: US Abdomen Limited, Right Upper Quadrant Exam date and time: 03/18/2020 12:40 PM Age: 59 years old Clinical indication: Abdominal pain; Additional info: Cholecystitis TECHNIQUE: Imaging protocol: Real-time ultrasound of the abdomen with image documentation. Examination was focused on the right upper quadrant. COMPARISON: Abdominal/pelvic CT 03/18/2020 FINDINGS: Liver: Fatty infiltration of the liver. Gallbladder: Echogenic bile in the dilated gallbladder. Assessment of a sonographic Rubio sign was not reported by the scanning technologist. Common bile duct: Nonvisualization of the common bile duct. Pancreas: Obscuration of the pancreas by bowel gas. Right kidney: Normal right renal morphology. No hydronephrosis. US/US gall bladder [id number] IMPRESSION: Echogenic bile in the dilated gallbladder.
--- NOTE | 2020-03-18 12:38 | CTR_ITS ---
PROCEDURE INFORMATION: Exam: CT Head Without Contrast Exam date and time: 03/18/2020 12:48 PM Age: 59 years old Clinical indication: Altered mental status/memory loss; Confusion or disorientation; Patient HX: Worsening confusion / disorientation; Additional info: AMS TECHNIQUE: Imaging protocol: Computed tomography of the head without contrast. Radiation optimization: All CT scans at this facility use at least one of these dose optimization techniques: automated exposure control; mA and/or kV adjustment per patient size (includes targeted exams where dose is matched to clinical indication); or iterative reconstruction. COMPARISON: No relevant prior studies available. RADIATION DOSE METRICS: Total DLP: 1890.32 mGy-cm FINDINGS: Beam hardening artifact limits evaluation. Brain: Symmetric prominence of the cortical and cerebellar sulci. Mild small vessel ischemic change. No acute cortical infarct, mass effect, or intracranial hemorrhage. Ventricles: Normal configuration of the ventricles. Bones/joints: No acute calvarial pathology. Sinuses: No sinus fluid. Mastoid air cells: No mastoid effusion. Soft tissues: Unremarkable. CT/CT head wo con* [id number] IMPRESSION: No acute intracranial pathology. Radiation Dose CTDIVOL = (mGy): DLP = 1890.32 (mGy-cm)
--- NOTE | 2020-03-18 12:39 | CTR_ITS ---
PROCEDURE INFORMATION: Exam: CT Abdomen And Pelvis Without Contrast Exam date and time: 03/18/2020 12:48 PM Age: 59 years old Clinical indication: Bloating; Patient HX: ? Sbo; Additional info: R/O cholecytisis, sbo TECHNIQUE: Imaging protocol: Computed tomography of the abdomen and pelvis without contrast. Radiation optimization: All CT scans at this facility use at least one of these dose optimization techniques: automated exposure control; mA and/or kV adjustment per patient size (includes targeted exams where dose is matched to clinical indication); or iterative reconstruction. COMPARISON: US Renal Kidney Structu* [id number] 10/11/2019 3:12 PM RADIATION DOSE METRICS: Total DLP: 1485.6 mGy-cm FINDINGS: Detailed evaluation of the abdominal and pelvic viscera is somewhat limited in the absence of intravenous contrast. Lungs: Interstitial prominence, chronic granulomatous disease, and mild dependent airspace disease. Small pericardial and pleural effusions. Coronary artery calcification. Liver: Fatty infiltration of the liver. Gallbladder and bile ducts: High attenuation bile in the markedly dilated gallbladder. No biliary ductal dilatation. Pancreas: Pancreatic atrophy. Spleen: Granulomata in the mildly enlarged spleen measuring 12.6 cm in length. Adrenals: Unremarkable adrenals. Kidneys and ureters: 1 mm nonobstructing bilateral renal calculi. Ultrasound detected right renal cyst is poorly visualized on the noncontrast examination performed. Stomach and bowel: Mildly dilated air and fluid-filled stomach. No high-grade small bowel obstruction. Copious stool, in a pattern of constipation. Appendix: No acute appendicitis. Intraperitoneal space: No significant free fluid. Vasculature: Vascular calcification. Normal caliber of the abdominal aorta. Lymph nodes: No pathologically enlarged lymph nodes. Bladder: Lisa catheter and air in the decompressed bladder. Reproductive: Vas deferens calcification. Bones/joints: Old rib fractures. Osteopenia, degenerative change, and ligamentous calcification. CT/CT abdomen pelvis wo con [id number] IMPRESSION: 1. High attenuation bile in the markedly dilated gallbladder. 2. 1 mm nonobstructing bilateral renal calculi. 3. Additional findings as described above. Radiation Dose CTDIVOL = (mGy): DLP = 1485.6 (mGy-cm)
--- NOTE | 2020-03-18 12:44 | PM.PN ---
Subjective Subjective: Interval history: 59-year-old white male postoperative day 4 status post ORIF right lateral malleolus following fracture dislocation. Hospitalist informed me that they are concerned patient may have cholecystitis. He had a distended gallbladder on imaging study. His white blood cell count has increased to 16.3 hospitalist expressed concern that he may have early sepsis. General surgery consultation was favored on their part. As the patient essentially is ready for discharge from orthopedic perspective the hospitalist was willing to accept care of the patient and coordinate his ongoing care in the hospital to include potential surgical consult. Discussed risks with the patient he was agreeable to this course of action. Discussed his ability to transfer and ambulate nonweightbearing on the postoperative right lower extremity and the therapist did not think he was making very good progress and would most likely benefit from being discharged to a skilled facility. The patient's financial/insurance situation makes it very difficult to be able to afford being transferred to a skilled facility. Discussed with the patient that he needs to be very careful not weight-bear on the right lower extremity due to his diabetic neuropathy and high risk for developing a Charcot joint. Is also instructed keep splint on keep it clean and dry. Vitals/I&O/Wt Last Vital Signs Temp 99.0 F 03/18/20 10:56 Pulse 112 H 03/18/20 10:56 Resp 22 H 03/18/20 10:56 BP 118/66 03/18/20 10:56 Pulse Ox 92 03/18/20 10:56 03/17/20 03/18/20 03/18/20 22:59 06:59 14:59 Intake Total 0 / 1565 Output Total 600 / 900 160 / 1060 Balance -600 / 665 -160 / 505 Physical Exam Narrative: EXAM NARRATIVE: 59-year-old white male in no acute distress. Obese body habitus No respiratory distress. Splint right lower extremity clean dry and intact toes with normal capillary refill Urinary Catheter Management^: Lisa: Cath Placed During This Visit: yes, but has since been removed by the nurse Reason for Continuing Indwelling Catheter: Other Urinary Catheter Date of Insertion: 03/16/20 Urinary Catheter Time of Insertion: 17:30 Date Urinary Catheter Removed: 03/17/20 Time Urinary Catheter Discontinued: 18:30 Data : 03/18/20 03:02 03/18/20 03:02 Micro: Microbiology 03/18/20 03:07 Blood Culture - Preliminary Blood SPECIMEN COLLECTED 03/18/20 03:02 Blood Culture - Preliminary Blood SPECIMEN COLLECTED A&P Assessment and plan (1) Fracture dislocation of ankle: Patient to remain nonweightbearing on the right lower extremity Walker ambulation for transfers When medically stable may be transferred home with home physical therapy Follow-up in orthopedic clinic in 2weeks March 30, [address] Howell in the office splint will be removed at that time. 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 Diabetes mellitus complication status: with kidney complications Diabetes mellitus complication detail: with chronic kidney disease Chronic kidney disease stage: unspecified stage Qualified Code(s): E11.22 - Type 2 diabetes mellitus with diabetic chronic kidney disease; Z79.4 - detention (current) use of insulin Attestations Medical Necessity Statement*: Patient to remain in inpatient status until sepsis work-up is completed and possible surgical consultation for patient's distended gallbladder Time Spent in Patient Care: 16 - 35 minutes (>than 50% of time spent in counselling and/or direct pt care on unit). Coding Level of Care Code Acute Sugar Coating Hand for [facility] Fwd Diagnoses Fracture dislocation of ankle S82.891B Encounter type: initial encounter Fracture type: open Laterality: right Open fracture type: open type I or II Diabetic neuropathy E11.42 Diabetes mellitus type: type 2 Diabetes mellitus complication detail: diabetic polyneuropathy Diabetes E11.22; Z79.4 Diabetes mellitus type: type 2 Diabetes mellitus longterm insulin use: with remote computer terminal operator use Diabetes mellitus complication status: with kidney complications Diabetes mellitus complication detail: with chronic kidney disease Chronic kidney disease stage: unspecified stage
--- NOTE | 2020-03-18 16:23 | P.PN_ITS ---
Subjective Subjective: Interval history: Overnight patient developed fever going up to 101.2 Fahrenheit. Blood cultures were sent. Patient remained hemodynamically stable. Vitals, labs noted. On examination patient lying comfortably in bed, mildly confused but AO x3, drowsy complaining of pain at the catheter site and right upper quadrant but denies of having any nausea or vomiting. He also denies of having any diarrhea. Vitals/I&O/Wt Last Vital Signs Temp 98.3 F 03/18/20 15:02 Pulse 105 H 03/18/20 15:02 Resp 22 H 03/18/20 15:02 BP 121/68 03/18/20 15:02 Pulse Ox 94 03/18/20 15:02 03/18/20 03/18/20 03/18/20 06:59 14:59 22:59 Output Total 160 / 1060 Balance -160 / 505 Physical Exam Narrative: EXAM NARRATIVE: General: No acute distress, AO x3, drowsy HEENT: PERRLA, pupils bilaterally equal and reactive Chest: Normal vesicular breath sounds, no added sounds, equal good air entry bilaterally CVS: S1-S2 regular, no murmurs, no tachycardia, no gallops, no rubs Abdomen: Soft, mild tenderness in right upper quadrant, no guarding or rigidity, no organomegaly, bowel sounds present Neuro: No focal deficits, no facial deformity, AO x3, power 5/5 in all limbs: Extremities: Right lower limb splint present clean and dry and intact. Capillary refill normal in the right toes. Urinary Catheter Management^: Lisa: Cath Placed During This Visit: yes, but has since been removed by the nurse Reason for Continuing Indwelling Catheter: Other Urinary Catheter Date of Insertion: 03/16/20 Urinary Catheter Time of Insertion: 17:30 Date Urinary Catheter Removed: 03/17/20 Time Urinary Catheter Discontinued: 18:30 Data : 03/18/20 03:02 03/18/20 03:02 Micro: Microbiology 03/18/20 03:07 Blood Culture - Preliminary Blood SPECIMEN COLLECTED 03/18/20 03:02 Blood Culture - Preliminary Blood SPECIMEN COLLECTED A&P Assessment and plan (1) Sepsis: Status: Acute (2) Metabolic encephalopathy: Status: Acute (3) Fracture dislocation of ankle: Status: Acute Qualifiers: Encounter type: initial encounter Fracture type: open Laterality: right Open fracture type: open type I or II Qualified Code(s): S82.891B - Other fracture of right lower leg, initial encounter for open fracture type I or II (4) Type 2 diabetes mellitus with other specified complication: Status: Acute Qualifiers: 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: without intermediate teacher use Qualified Code(s): E11.69 - Type 2 diabetes mellitus with other specified c omplication (5) BPH (benign prostatic hyperplasia): Status: Chronic Qualifiers: Lower urinary tract symptom presence: symptoms present Lower urinary tract symptom detail: incomplete bladder emptying Qualified Code(s): N40.1 - Benign prostatic hyperplasia with lower urinary tract symptoms; R39.14 - Feeling of incomplete bladder emptying (6) Postoperative urinary retention: Status: Acute (7) Acute kidney injury superimposed on CKD: Status: Acute Additional A&P Information Sepsis: Criteria met by fever, heart rate of more than 90, white count of more than 12,000. Procalcitonin elevated. Unknown source for now. Most likely from gallbladder. CT chest done yesterday negative for pneumonia but concerning for distended gallbladder. Check right upper quadrant ultrasound, CT abdomen to rule out obstruction, CT head because patient is a little altered most likely because of metabolic encephalopathy from sepsis. Blood cultures sent overnight. Urinalysis negative for UTI. Discontinue Lisa catheter. Start patient on vancomycin and Zosyn both renally dosed. Will de-escalate antibiotics as per the culture results. Check sputum culture, bacterial antigen. Metabolic encephalopathy: Most likely because of sepsis. ABG done today morning negative hypercarbia and hypoxia Fracture dislocation of ankle: Status post ORIF by Dr. Howell of right trimalleolar fracture after mechanical fall. Continue pain management as per Dr. Howell. Continue physical therapy/anticoagulation as per Dr. Howell. BPH: Postoperative urinary retention: monitor urine output. Will discontinue Lisa today and see how he does. Continue with Flomax 0.4 mg daily. History of diabetes: Discontinue Januvia as patient with sepsis. Continue with Levemir 40 units daily. Increase insulin sliding scale to high-dose. Hypertension: Blood pressure stable for now. Continue home dose of amlodipine. Continue holding lisinopril for now given SIENNA on CKD. SIENNA: Baseline creatinine now 1.7. Creatinine back to baseline today. Patient is doing well with physical therapy but continues to put weight on not weightbearing foot. Most likely because patient is not having any pain sensation given nephropathy. Patient is at high danger of developing Charcot's foot. Will discuss with Dr. Howell if patient would need SNF placement. Full code. Heparin for DVT prophylaxis Carb consistent diet. Case discussed with Dr. Howell. We will transfer services under my care. She needs admission to inpatient given development of new sepsis. We will transfer patient in intermediate care. 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 [facility] Fwd Diagnoses Sepsis A41.9 Metabolic encephalopathy G93.41 Fracture dislocation of ankle S82.891B Encounter type: initial encounter Fracture type: open Laterality: right Open fracture type: open type I or II Type 2 diabetes mellitus with other specified complication E11.69 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: without intermediate teacher use BPH (benign prostatic hyperplasia) N40.1; R39.14 Lower urinary tract symptom presence: symptoms present Lower urinary tract symptom detail: incomplete bladder emptying Postoperative urinary retention N99.89; R33.8 Acute kidney injury superimposed on CKD N17.9; N18.9
[2020-03-18 17:07] LABS: Glucose Point of Care 279 mg/dL (70-110)
[2020-03-18 21:05] LABS: Glucose Point of Care 217 mg/dL (70-110)
[2020-03-18 22:36] LABS: Glucose Point of Care 206 mg/dL (70-110)
[2020-03-19] VITALS (11 sets, daily range): BP systolic 102–136; BP diastolic 56–76; PULSE 83–113; RESP 16–22; TEMP 36.6–37.8; O2SAT 89–96
[2020-03-19] MEDS: ipratropium-albuterol 3 mL Neb INHALATION ×3 (02:53→20:45)
[2020-03-19] MEDS: piperacillin-tazobactam 3.375 GM in sodium chloride 0.9% (plus) 50 ML IV ×2 (05:32→17:10)
[2020-03-19] MEDS: heparin 5,000 unit/mL INJ 1 mL 5000 UNIT SUBCUT ×2 (05:33→17:20)
[2020-03-19 05:35] LABS: Basophils % 0.2 %; Eosinophils % 0.2 %; Hematocrit 34.6 % (42.0-52.0); Hemoglobin 10.7 g/dL (11.7-16.6); Lymphocytes # 1.3 10^3/uL (0.8-4.8); Lymphocytes % 7.2 %; Mean Corpuscular HGB Conc 30.9 g/dL (30.0-36.0); Mean Corpuscular Volume 93.8 fL (80-94); Mean Platelet Volume 11.3 fL (7.4-10.4); Monocytes % 11.1 %; Neutrophils # 14.6 10^3/uL (1.8-7.7); Neutrophils % 80.6 %; Nucleated Red Blood Cells % 0 %; Platelet Count 314 10^3/cmm (130-400); Red Blood Count 3.69 10^6/uL (4.1-5.3); Red Cell Distribution Width 13.8 % (12.1-15.1); White Blood Count 18.1 10^3/uL (4.0-10.0)
[2020-03-19 05:55] LABS: Alanine Aminotransferase 14 U/L (0-41); Albumin Level 3.4 g/dL (3.5-5.2); Alkaline Phosphatase 162 IU/L (40-130); Anion Gap 18.9 (5-19); Aspartate Amino Transferase 22 U/L (0-40); Blood Urea Nitrogen 44 mg/dL (8-23); Calcium 8.9 mg/dL (8.5-10.5); Carbon Dioxide 22 mmol/L (22-29); Chloride 104 mmol/L (98-107); Glomerular Filtration Rate 41.3 mL/min (90-130); Glucose 193 mg/dL (65-115); Osmolality Calculated 293 mOsm/kg (285-295); Potassium 4.9 mmol/L (3.5-5.1); Sodium 140 mmol/L (136-145); Total Bilirubin 0.4 mg/dL (0.15-1.2); Total Protein 7.4 g/dL (6.6-8.7)
--- NOTE | 2020-03-19 08:31 | P.PN_ITS ---
Subjective Subjective: Interval history: 59-year-old white male seen at the bedside 03/19/2020. He has no complaints of right ankle pain. he offered no complaints of chest pain, shortness of breath, productive cough or abdominal discomfort. Vitals/I&O/Wt Last Vital Signs Temp 100.2 F H 03/20/20 07:29 Pulse 101 H 03/20/20 08:25 Resp 20 H 03/20/20 08:25 BP 127/65 03/20/20 07:29 Pulse Ox 96 03/20/20 08:25 03/19/20 03/20/20 03/20/20 22:59 06:59 14:59 Intake Total 50 / 220.00 Output Total 650 / 1450 Balance 50 / -580.00 -650 / -1230.00 Physical Exam Narrative: EXAM NARRATIVE: 59-year-old white male in no acute distress. Lungs are clear to auscultation. Heart rate rhythm. Abdomen soft, nontender with no specific right upper quadrant tenderness. his right lower extremity short leg splint is clean dry and intact without drai nage or strikethrough. He has normal capillary refill of the hallux of the right foot. There is no streaking proximal to the superior edge of the splint. No calf tenderness of the left leg. Urinary Catheter Management^: Lisa: Cath Placed During This Visit: yes, but has since been removed by the nurse Reason for Continuing Indwelling Catheter: Other Urinary Catheter Date of Insertion: 03/19/20 Urinary Catheter Time of Insertion: 14:30 Date Urinary Catheter Removed: 03/17/20 Time Urinary Catheter Discontinued: 18:30 Data : 03/19/20 05:01 03/19/20 05:01 A&P Assessment and plan (1) Fracture dislocation of ankle: status post ORIF of lateral malleolus fracture with closed treatment of posterior malleolar fracture from fracture-dislocation of right ankle postoperative day 4. Patient requires continued inpatient level care by medical team who graciously accepted. the patient in transfer. He is being evaluated for sepsis possible abdominal pathology. the patient distal be nonweightbearing on his right lower extremity. My plan was to have him follow-up in the office March 30 to remove his postoperative splint, perform incisional care, inspect the area of the medial malleolus and to apply a short leg cast. Status: Acute Qualifiers: Encounter type: initial encounter Fracture type: open Laterality: right Open fracture type: open type I or II Qualified Code(s): S82.891B - Other fracture of right lower leg, initial encounter for open fracture type I or II Attestations Medical Necessity Statement*: Patient requires continued inpatient level care to assess underlying medical issues and potential sepsis. He is receiving intravenous antibiotics. Workup is in progress. As the patient is able to his beta can continue with physical therapy nonweightbearing on the right lower extremity work on transfer training to prevent further deconditioning. Follow- up in the office in 2 weeks time as described above. Sign out was performed to Dr. Mauricio of the orthopedic service today Time Spent in Patient Care: less than 15 minutes Coding Level of Care Code Acute Staff [employer] Officer for [facility] Diagnoses Fracture dislocation of ankle S82.891B Encounter type: initial encounter Fracture type: open Laterality: right Open fracture type: open type I or II
[2020-03-19] MEDS: atorvastatin 40 mg Tablet 20 MG PO (09:12)
[2020-03-19] MEDS: amlodipine 10 mg Tablet PO (09:12)
[2020-03-19] MEDS: aspirin 81 mg EC Tablet PO (09:12)
[2020-03-19] MEDS: pramipexole 0.25 mg Tablet PO (09:13)
[2020-03-19] MEDS: multivitamin therapeutic Tablet 1 TAB PO (09:13)
[2020-03-19] MEDS: gabapentin 300 mg Capsule PO (09:13)
[2020-03-19] MEDS: pantoprazole DR 40 mg Tablet PO (09:13)
[2020-03-19] MEDS: tamsulosin 0.4 mg Capsule PO (09:13)
--- NOTE | 2020-03-19 10:02 | PC.CHAP ---
Pastoral Care Encounter/Spiritual Assessment Type of Contact [] Declined distribution agent visit [] Patient/Family/Request visit [] Outpatient visit [] Follow-up visit [] Physician referral [] Code/Alert [x] Routine visit [] Staff referral [] Actively dying [x] Patient sleeping [] Family support [] [] Out of room [] Palliative care [] [] Receiving care in room [] Pre-surgical visit [] Trauma [] Long length of stay [] ICU visit [] Other: Relational/Emotional Strength [] Patient feels connected with others/family/visitors/staff [] Distress [] Loneliness/isolation [] Abandonment Spirituality of Patient [] Person of Nita [] Attends Restoration of their Nita [] Believes in Prayer [] Reads Bible or Sikhism materials [] There are Spiritual issues to be addressed Blacksmith Supervisor Interventions [x] Prayer [] Active listening [] Non-anxious presence [] Spiritual/emotional support [] Crisis/trauma care [] Spiritual counseling [] Bereavement support [] Provided bereavement packet [] Provided Bible/devotional materials [] Provided toy/stuffed animal, coloring book to patient or family member [] Provided Communion [] Anointing/[facility] [] Salvation [x] Completed spiritual assessment [] Other: Impact on Illness or Injury [] Angry [] Fearful [] Anxious [] Often cries [] Exhaustion [] Unable to work [] Unable to attend latter-day [] Unable to walk/stand [] Unable to read [] Unable to drive [] Unable to eat/drink [] Unable to sleep [] Unable to be with family [] Patient intubated [] Other: Summary Patient not resting well, Kelly spoke over him for peace and rest Time spent with patient 5min
[2020-03-19 10:37] LABS: Glucose Point of Care 255 mg/dL (70-110)
--- NOTE | 2020-03-19 11:00 | P.PN_ITS ---
Subjective Subjective: Interval history: No acute events overnight. T-max in last 24 hours 99.3 Fahrenheit. Patient has remained hemodynamically stable. On examination today patient is drowsy but arousable. On arousal patient is AO x3. As per the nurse patient has not had any nausea, vomiting, headache. Patient has had low urine output so bladder scan was done and Lisa was replaced and patient had 800 cc of urine put out. Vitals/I&O/Wt Last Vital Signs Temp 99.1 F 03/19/20 04:52 Pulse 113 H 03/19/20 09:18 Resp 17 03/19/20 09:12 BP 124/74 03/19/20 04:52 Pulse Ox 92 03/19/20 09:12 03/18/20 03/19/20 03/19/20 22:59 06:59 14:59 Intake Total 530 / 530 290 / 820 138.75 / 138.75 Balance 530 / 530 290 / 820 138.75 / 138.75 Physical Exam Narrative: EXAM NARRATIVE: General: No acute distress, AO x3, drowsy HEENT: PERRLA, pupils bilaterally equal and reactive Chest: Normal vesicular breath sounds, no added sounds, equal good air entry bilaterally CVS: S1-S2 regular, no murmurs, no tachycardia, no gallops, no rubs Abdomen: Soft, mild tenderness in right upper quadrant, no guarding or rigidity, no organomegaly, bowel sounds present Neuro: No focal deficits, no facial deformity, AO x3, power 5/5 in all limbs: Extremities: Right lower limb splint present clean and dry and intact. Capillary refill normal in the right toes. Urinary Catheter Management^: Lisa: Cath Placed During This Visit: yes, but has since been removed by the nurse Reason for Continuing Indwelling Catheter: Other Urinary Catheter Date of Insertion: 03/16/20 Urinary Catheter Time of Insertion: 17:30 Date Urinary Catheter Removed: 03/17/20 Time Urinary Catheter Discontinued: 18:30 Data : 03/19/20 05:01 03/19/20 05:01 Micro: Microbiology 03/18/20 03:07 Blood Culture - Preliminary Blood NEGATIVE TO DATE 03/18/20 03:02 Blood Culture - Preliminary Blood NEGATIVE TO DATE 03/18/20 17:30 Bacterial Antigens - Final Urine,Clean Catch A&P Assessment and plan (1) Sepsis: Status: Acute (2) Metabolic encephalopathy: Status: Acute (3) Fracture dislocation of ankle: Status: Acute Qualifiers: Encounter type: initial encounter Fracture type: open Laterality: right Open fracture type: open type I or II Qualified Code(s): S82.891B - Other fracture of right lower leg, initial encounter for open fracture type I or II (4) Type 2 diabetes mellitus with other specified complication: Status: Acute Qualifiers: Diabetes mellitus superintendent container terminal insulin use: without superintendent container terminal use Qualified Code(s): E11.69 - Type 2 diabetes mellitus with other specified complication (5) BPH (benign prostatic hyperplasia): Status: Chronic Qualifiers: Lower urinary tract symptom detail: incomplete bladder emptying Lower urinary tract symptom presence: symptoms present Qualified Code(s): N40.1 - Benign prostatic hyperplasia with lower urinary tract symptoms; R39.14 - Feeling of incomplete bladder emptying (6) Postoperative urinary retention: Status: Acute (7) Acute kidney injury superimposed on CKD: -Creatinine has increased to 2.3 -baseline creatinine is 1.6 -will require IV hydration and sedation Status: Acute Additional A&P Information Sepsis: Criteria met by fever, heart rate of more than 90, white count of more than 12,000. Procalcitonin elevated. Most likely from gallbladder. CT chest negative for any infiltrate, urinalysis negative for UTI, postop dressing looks clean. Results of CT abdomen, gallbladder ultrasound, HIDA scan noted. Chances of cholangitis are low right now because liver functions are mostly normal with a normal bilirubin and mildly elevated alkaline phosphatase. Case discussed with Dr. Carolina. He states due to the concern of CBD stricture on the HIDA scan is important to get MRCP done. Because if patient has obstruction of CBD patient would most likely need ERCP. Blood cultures remain negative. Bacterial antigen positive for Haemophilus pneumonia antigen. For now continue with vancomycin and Zosyn both renally dosed. We will change antibiotics as per the culture results. Keep mean arterial pressure of 65 mmHg. Keep saturation over 92% with oxygen supplementation. Lisa catheter replaced because patient was retaining more than a 800 cc of urine. Patient would most likely be discharged on Lisa catheter. Metabolic encephalopathy: Most likely because of sepsis. ABG done earlier negative hypercarbia and hypoxia Fracture dislocation of ankle: Status post ORIF by Dr. Howell of right trimalleolar fracture after mechanical fall. Continue pain management as per Dr. Howell. Continue physical therapy/anticoagulation as per Dr. Howell. BPH: Patient failed voiding trial. Urine catheter again placed. Patient would most likely be discharged on urine catheter. Continue with Flomax 0.4 mg daily. History of diabetes: Discontinue Januvia as patient with sepsis. Continue with Levemir 40 units daily. Increase insulin sliding scale to high-dose. Hypertension: Blood pressure stable for now. Continue home dose of amlodipine. Continue holding lisinopril for now given SIENNA on CKD. SIENNA: Baseline creatinine now 1.7. Creatinine back to baseline today. Patient is doing well with physical therapy but continues to put weight on not weightbearing foot. Most likely because patient is not having any pain sensation given nephropathy. Patient is at high danger of developing Charcot's foot. Will discuss with Dr. Howell if patient would need SNF placement. Full code. Heparin for DVT prophylaxis Carb consistent diet. Tried calling patient's partner Ms. Pickard earlier in the day today and have left a voice message to update. Attestations Medical Necessity Statement*: Sepsis, postoperative status Time Spent in Patient Care: Greater than 35 minutes Coding Level of Care Code Acute Radio Talk Show Host for [facility] Fwd Diagnoses Sepsis A41.9 Metabolic encephalopathy G93.41 Fracture dislocation of ankle S82.891B Encounter type: initial encounter Fracture type: open Laterality: right Open fracture type: open type I or II Type 2 diabetes mellitus with other specified complication E11.69 Diabetes mellitus superintendent container terminal insulin use: without superintendent container terminal use BPH (benign prostatic hyperplasia) N40.1; R39.14 Lower urinary tract symptom detail: incomplete bladder emptying Lower urinary tract symptom presence: symptoms present Postoperative urinary retention N99.89; R33.8 Acute kidney injury superimposed on CKD N17.9; N18.9
[2020-03-19 11:55] LABS: Glucose Point of Care 260 mg/dL (70-110)
--- NOTE | 2020-03-19 12:00 | NM_ITS ---
WS: [id number] NUCLEAR MEDICINE HIDA SCAN CLINICAL INFORMATION: cholecystitis TECHNIQUE: Following intravenous administration of 8.5 mCi of technetium 99m mebrofenin, images of th e abdomen were obtained over the course of 60 minutes. Next, gallbladder ejection fraction was determ ined by obtaining preprandial and one-hour postprandial images of the gallbladder following oral cassi stion of Ensure. COMPARISON: Ultrasound March 18, 2020 FINDINGS: Normal hepatic parenchymal uptake at 5 minutes. Normal hepatic excretion. Gallbladder is not identifi ed by 60 minutes. Study was continued to 120 minutes with nonvisualization of the gallbladder. Gallbl adder rim sign. Findings suspicious for acute cholecystitis. Filling defect in the proximal common bi le duct with a linear configuration and may represent partial obstruction or stricture. However, Smal l bowel is normally visualized by 20 to 30 minutes. NM/NM hepatobiliary w phar* [id number] IMPRESSION: 1. Nonvisualization of the gallbladder out to 120 minutes suspicious for acute cholecystitis. 2. Nonobstructing Linear filling defect in the proximal common bile duct which fills in on the delayed imaging may represent partial obstruction or stricture . This can be further evaluated MRCP.
[2020-03-19] MEDS: sodium chloride 0.9% 1,000 ML 50 ML IV (16:57)
[2020-03-19 17:15] LABS: Glucose Point of Care 243 mg/dL (70-110)
[2020-03-19 22:18] LABS: Glucose Point of Care 165 mg/dL (70-110)
[2020-03-20] VITALS (11 sets, daily range): BP systolic 109–148; BP diastolic 65–83; PULSE 78–105; RESP 14–20; TEMP 37–38.3; O2SAT 90–97
[2020-03-20] MEDS: piperacillin-tazobactam 3.375 GM in sodium chloride 0.9% (plus) 50 ML IV ×3 (01:08→17:54)
[2020-03-20] MEDS: ipratropium-albuterol 3 mL Neb INHALATION ×3 (02:48→20:42)
[2020-03-20] MEDS: heparin 5,000 unit/mL INJ 1 mL 5000 UNIT SUBCUT ×2 (05:53→17:45)
[2020-03-20 06:38] LABS: Glucose Point of Care 172 mg/dL (70-110)
--- NOTE | 2020-03-20 11:00 | US_ITS ---
WS: [id number] ULTRASOUND ABDOMEN LIMITED CLINICAL INFORMATION: r/o cholecystectomy COMPARISON: None. FINDINGS: Liver Size: Normal. Craniocaudal length: 13.6 cm. Echogenicity: Coarse echogenicity Surface nodularity: None. Mass (size and location): None. Bile ducts Intrahepatic ducts: Normal. Common bile duct diameter: 0.5 cm. Gallbladder Fluid-filled dilated gallbladder measuring 15.1 x 7.4 x 8.0 cm Gallstones: None. Gallbladder sludge: Present Gallbladder wall thickenin mm Sonographic Rubio sign: Absent. Pancreas Normal as visualized Right kidney: Normal. Hydronephrosis: None. Size: 11.6 cm x 5.3 cm x 6.5 cm. Abdominal aorta and IVC Visualized portions are normal. Ascites: None. US/US gall bladder [id number] IMPRESSION: 1. Again seen is a dilated fluid-filled gallbladder with gallbladder wall thic kening measuring 8 mm. This does not appear significantly changed compared to t he prior examination March 18, 2020. Consider hydropic gallbladder. Recommend cor relation with biliary colic. 2. No cholelithiasis. Gallbladder sludge present. 3. Common bile duct better visualized today normal caliber measuring 5.4 mm. 4. No intrahepatic biliary ductal dilatation. 5. No hydronephrosis right kidney. Discussed with Dr. Jones
--- NOTE | 2020-03-20 11:09 | P.CONIM_ITS ---
Providers/Reason For Consult Consulting Physican/Specialty*: Jose Armando Vieira MD Reason for Consult*: Concern for gallbladder disease Attending Physician: Stuart Noyola MD Primary Care Provider: MADELEINE Waldrop History of Present Illness History of Present Illness Chief Complaint: I am hurting at the base of my private part History of present illness: Richie Baca is a 59 year old male admitted for orthopedic intervention as the patient had fell and had right ankle fracture associated with dislocation, undergone surgery back mar 15 2020. At some point the patient was ready to be discharged and then for unclear reason he was confused and further work-up showed that the patient had a CTA; 1. There is minimal consolidation at the posterior aspects of the lungs most consistent with dependent atelectatic change. 2. Gallbladder is distended. There is increased density within the gallbladder raising concern for sludge. Consider right upper quadrant ultrasound for further evaluation as clinically warranted. Subsequently further evaluation showed: FINDINGS: Liver: Fatty infiltration of the liver. Gallbladder: Echogenic bile in the dilated gallbladder. Assessment of a sonographic Rubio sign was not reported by the scanning technologist. Common bile duct: Nonvisualization of the common bile duct. Pancreas: Obscuration of the pancreas by bowel gas. Right kidney: Normal right renal morphology. No hydronephrosis. US/US gall bladder [id number] IMPRESSION: Echogenic bile in the dilated gallbladder. And a CT scan of the abdomen and pelvis was performed that showed: 1. High attenuation bile in the markedly dilated gallbladder. 2. 1 mm nonobstructing bilateral renal calculi. 3. Additional findings as described above. Followed by a HIDA scan 1. Nonvisualization of the gallbladder out to 120 minutes suspicious for acute cholecystitis. 2. Nonobstructing Linear filling defect in the proximal common bile duct which fills in on the delayed imaging may represent partial obstruction or stricture. This can be further evaluated MRCP. Patient has been on parenteral antibiotics and per hospitalist service patient showed improvement overall, but the patient never complained of any abdominal pain when I did ask him and he denies any history of fatty dyspepsia any gallbladder disease in the past. Surgery was consulted for further evaluation Review of Systems General: Reports: 10 or more systems reviewed and unremarkable except in HPI and below Meds/Allergies Home Medications and Allergies Home Medications Medication Instructions Recorded Confirmed Last Taken Type amlodipine 10 mg tablet 10 ea PO DAILY 11/15/19 03/15/20 Unknown History flash glucose sensor #1 each 11/15/19 03/15/20 Unknown Rx pen needle, diabetic 31 gauge x #30 each 11/15/19 03/15/20 Unknown History 1/4 liraglutide 0.6 mg/0.1 mL (18 mg/3 1.8 mg SUBCUT DAILY #9 ml 01/23/20 03/15/20 Unknown Rx mL) subcutaneous pen injector insulin detemir U-100 100 unit/mL 40 unit SUBCUT DAILY 90 Days #15 ml 01/30/20 03/15/20 03/15/20 Rx (3 mL) subcutaneous pen gabapentin 300 mg capsule 300 mg PO BID 90 Days #180 cap 01/31/20 03/15/20 03/15/20 Rx lovastatin 20 mg tablet 20 mg PO DAILY 90 Days #90 tab 01/31/20 03/15/20 03/15/20 Rx pantoprazole 40 mg tablet,delayed 40 mg PO DAILY 90 Days #90 tab 01/31/20 03/15/20 03/15/20 Rx release pramipexole 0.25 mg tablet 0.25 mg PO DAILY 90 Days #90 tab 01/31/20 03/15/20 03/15/20 Rx amitriptyline 100 mg tablet 200 mg PO .at bedtime PRN #60 tab 02/10/20 03/15/20 03/14/20 Rx glipizide 10 mg tablet 10 mg PO DAILY #30 tab 02/10/20 03/15/20 03/15/20 Rx lisinopril 10 mg tablet 10 mg PO DAILY #30 tab 02/10/20 03/15/20 03/15/20 Rx sitagliptin 100 mg tablet 100 mg PO DAILY 90 Days #90 tab 03/12/20 03/15/20 03/15/20 Rx Acetaminophen PM 1 tab PO BEDTIME PRN 03/15/20 03/15/20 03/15/20 History Multiple Vitamins 1 tab PO DAILY 03/15/20 03/15/20 03/15/20 History Vitamin C 1,000 mg PO Q12H 03/15/20 03/15/20 03/15/20 History aspirin 81 mg PO DAILY 03/15/20 03/15/20 03/15/20 History iron 325 mg PO DAILY 03/15/20 03/15/20 03/15/20 History tamsulosin 0.4 mg PO DAILY 03/15/20 03/15/20 Unknown History cefuroxime axetil 500 mg PO BID 7 Days #14 tab 03/16/20 Unknown Rx oxycodone-acetaminophen 1 tab PO Q4H PRN #40 tab 03/16/20 Unknown Rx Allergies Allergy/AdvReac Type Severity Reaction Status Date / Time Plastic Tape Allergy ALGY-Hives Uncoded 03/20/20 15:06 Current Medications Current Medications Generic Name Dose Route Start Last Admin Trade Name Freq PRN Reason Stop Dose Admin Hydrocodone Bitart/Acetaminophen 1 tab 03/17/20 16:17 03/18/20 12:13 [place]ier 5-325 Mg PO 1 tab Q4H PRN Administration MODERATE PAIN Albuterol/Ipratropium 3 ml 03/17/20 15:00 03/20/20 08:25 Duoneb INHALATION Not Given Q6H.RESPIRATORY KASHMIR Amitriptyline HCl 200 mg 03/16/20 21:00 03/19/20 21:59 Elavil PO 200 mg BEDTIME KASHMIR Administration Amlodipine Besylate 10 mg 03/16/20 09:00 03/20/20 10:21 Norvasc PO Not Given DAILY [facility] Aspirin 81 mg 03/16/20 09:00 03/20/20 10:22 Aspirin Ec PO Not Given DAILY [facility] Atorvastatin Calcium 20 mg 03/16/20 09:00 03/20/20 10:22 Lipitor PO Not Given DAILY [facility] Denture Adhesive 1 applic 03/16/20 09:25 03/17/20 10:31 Fixodent DENTAL 1 applic PRN PRN Administration denture adhesive Gabapentin 300 mg 03/16/20 09:00 03/20/20 10:22 Neurontin PO Not Given BID KASHMIR Heparin Sodium (Beef Lung) 5,000 unit 03/17/20 18:30 03/20/20 05:53 Heparin SUBCUT 5,000 unit Q12H KASHMIR Administration Vancomycin HCl 1,500 mg/ 250 mls @ 166.667 mls/hr 03/18/20 13:00 03/19/20 19:21 Sodium Chloride IV 166.7 mls/hr Q24H KASHMIR Administration Protocol As Directed Piperacillin Sod/Tazobactam 50 mls @ 12.5 mls/hr 03/18/20 11:30 03/20/20 08:30 Sod 3.375 gm/ Sodium Chloride IV 12.5 mls/hr Q8H KASHMIR Administration Protocol As Directed Sodium Chloride 1,000 mls @ 50 mls/hr 03/19/20 16:00 03/19/20 16:57 Sodium Chloride 0.9% IV 50 mls/hr .Q20H KASHMIR Administration Insulin Aspart 0 unit 03/16/20 08:00 03/20/20 08:27 Novolog SUBCUT 6 unit WM&BEDTIME KASHMIR Administration Protocol Insulin Detemir 40 unit 03/16/20 09:00 03/20/20 08:23 Levemir SUBCUT 40 unit DAILY KASHMIR Administration Lisinopril 10 mg 03/16/20 09:00 03/16/20 08:34 Prinivil PO 10 mg DAILY KASHMIR Administration Multivitamins Therapeutic 1 tab 03/16/20 09:00 03/20/20 10:22 Multivitamin Tab PO Not Given DAILY KASHMIR Pantoprazole Sodium 40 mg 03/16/20 09:00 03/20/20 10:23 Protonix PO Not Given DAILY KASHMIR Pramipexole Dihydrochloride 0.25 mg 03/16/20 09:00 03/20/20 10:23 Mirapex PO Not Given DAILY KASHMIR Sitagliptin Phosphate 100 mg 03/16/20 09:00 03/18/20 09:46 Januvia PO 100 mg DAILY KASHMIR Administration Tamsulosin HCl 0.4 mg 03/16/20 09:00 03/20/20 10:23 Flomax PO Not Given DAILY KASHMIR PFSH Acute PFSH: Medical History Diabetes Diabetic neuropathy Essential hypertension, benign GERD (gastroesophageal reflux disease) Mixed hyperlipidemia due to type 2 diabetes mellitus Restless leg Sleep difficulties Type 2 diabetes mellitus with other specified complication Surgical History H/O esophagogastroduodenoscopy Normal 06/18 Hx of colonoscopy 06/18 normal - to return in 10 years (2026) Status post amputation of right great toe Amputation of right great toe due to Osteomyelitis Social History Smoking and tobacco status: never smoked Second hand smoke exposure: No Smoking risk assessment/counseling performed?: No Alcohol intake: never Desire information about alcohol rehabilitation?: No Counseling given: No Desire information about substance/drug rehabilitation?: No Counseling given: No Vitals/I&O/Wt Last Vital Signs Temp 100.2 F H 03/20/20 07:29 Pulse 101 H 03/20/20 08:25 Resp 20 H 03/20/20 08:25 BP 127/65 03/20/20 07:29 Pulse Ox 96 03/20/20 08:25 03/19/20 03/20/20 03/20/20 22:59 06:59 14:59 Intake Total 50 / 220.00 50 / 270.00 Output Total 650 / 1450 Balance 50 / -580.00 -600 / -1180.00 Physical Exam Narrative: EXAM NARRATIVE: Patient is conscious alert oriented X3 BMI 37 Head and neck examination PERRLA no masses no cervical lymphadenopathy no jaundice Cardiac examination audible S1-S2 no murmurs no gallops no arrhythmias Chest is clear bilateral,abscence of Rhonchi or wheezes,no surgical emphysema Abdomen nontender nondistended soft no organomegaly guarding or rigidity/no signs of peritonitis Obese Patient pain and tenderness towards the root of his Penis no evidence of cellulitis or abscess formation Right lower extremity dressing in place Urinary Catheter Management^: Lisa: Cath Placed During This Visit: yes, but has since been removed by the nurse Reason for Continuing Indwelling Catheter: Other Urinary Catheter Date of Insertion: 03/19/20 Urinary Catheter Time of Insertion: 14:30 Date Urinary Catheter Removed: 03/17/20 Time Urinary Catheter Discontinued: 18:30 A&P Assessment and plan (1) Sepsis: After history taking physical examination and reviewing the chart and images, clearly after the physical exam does not show any signs of tenderness or Rubio sign on the right upper quadrant. The patient has an element of cholestasis I would highly recommend to obtain an MRCP since there was a concern of proximal common bile duct lesion for entertaining any further intervention. Thank you for consulting general surgery to participate taking care Status: Acute Consult Attestations Medical Necessity Statement: Per Hospitalist service Time Spent in Patient Care: 16 - 35 minutes (>than 50% of time spent in counselling and/or direct pt care on unit) . Coding Level of Care Code Acute Personal Security Specialist for [facility] Fwd Diagnoses Sepsis A41.9
[2020-03-20 11:29] LABS: Glucose Point of Care 149 mg/dL (70-110)
[2020-03-20 12:03] LABS: Basophils % 0.2 %; Eosinophils # 0.1 10^3/uL (0.0-0.8); Eosinophils % 0.7 %; Hematocrit 33.1 % (42.0-52.0); Hemoglobin 10.2 g/dL (11.7-16.6); Lymphocytes # 1.1 10^3/uL (0.8-4.8); Lymphocytes % 7.6 %; Mean Corpuscular HGB Conc 30.8 g/dL (30.0-36.0); Mean Corpuscular Hemoglobin 29.2 pg (28.0-34.0); Mean Corpuscular Volume 94.8 fL (80-94); Mean Platelet Volume 10.7 fL (7.4-10.4); Monocytes # 1.5 10^3/uL (0.2-0.9); Monocytes % 10.1 %; Neutrophils # 11.9 10^3/uL (1.8-7.7); Neutrophils % 80.7 %; Nucleated Red Blood Cells % 0 %; Platelet Count 339 10^3/cmm (130-400); Red Blood Count 3.49 10^6/uL (4.1-5.3); Red Cell Distribution Width 14.4 % (12.1-15.1); White Blood Count 14.8 10^3/uL (4.0-10.0)
[2020-03-20 12:30] LABS: Alanine Aminotransferase 25 U/L (0-41); Alkaline Phosphatase 193 IU/L (40-130); Anion Gap 19.7 (5-19); Aspartate Amino Transferase 62 U/L (0-40); Blood Urea Nitrogen 47 mg/dL (8-23); Carbon Dioxide 19 mmol/L (22-29); Chloride 107 mmol/L (98-107); Globulin 3.9 g/dL (1.3-4.6); Glomerular Filtration Rate 38.7 mL/min (90-130); Glucose 165 mg/dL (65-115); Osmolality Calculated 294 mOsm/kg (285-295); Potassium 4.7 mmol/L (3.5-5.1); Sodium 141 mmol/L (136-145); Total Bilirubin 0.3 mg/dL (0.15-1.2); Total Protein 6.9 g/dL (6.6-8.7)
--- NOTE | 2020-03-20 12:50 | US_ITS ---
WS: [id number] SCROTAL ULTRASOUND EXAMINATION CLINICAL INFORMATION: SCROTAL PAIN COMPARISON: None. FINDINGS: TESTES Normal in size and echotexture, without focal lesion. Color Doppler: Normal color Doppler flow pattern. Right testes size: 4.8 cm x 2.8 cm x 4.8 cm. Left testes size: 3.4 cm x 2.7 cm. EPIDIDYMIDES Normal in size and echotexture, without focal lesion. Color Doppler: Normal color Doppler flow pattern. Right epididymis size: 0.9 cm Left epididymitis size: 1.1 cm . HYDROCELE Small bilateral hydroceles VARICOCELE None. OTHER FINDINGS None. US/US scrotum [id number] IMPRESSION: 1. Normal testicular echogenicity with normal vascularity. 2. Small bilateral hydroceles. 3. No other significant findings.
[2020-03-20] MEDS: sodium chloride 0.9% 1,000 ML 50 ML IV (13:46)
--- NOTE | 2020-03-20 14:15 | PC.NURSE ---
[facility] TRANSPORTATION HERE TO TAKE PATIENT TO [facility] FOR MRCP SECOND ATTEMPT. PATIENT REFUSED TO GO TO PROCEDURE. PHYSICIAN NOTIFIED.
[2020-03-20] MEDS: LORazepam 2 mg/mL INJ 1 mL 1 MG IVP (14:20)
[2020-03-20 17:03] LABS: Glucose Point of Care 126 mg/dL (70-110)
--- NOTE | 2020-03-20 17:31 | PM.PN ---
Subjective Subjective: Interval history: There was some concern regarding the patient having issues with the ankle possibly leading to sepsis. There is also some concern regarding the gallbladder. When the patient is seen in his room, he has refused to go to the [facility] for the study regarding his gallbladder. I was asked by Dr. Howell to see the patient to evaluate his wound and rule it out as a cause of his elevated temperatures and white count. Vitals/I&O/Wt Last Vital Signs Temp 98.6 F 03/20/20 15:33 Pulse 103 H 03/20/20 15:33 Resp 20 H 03/20/20 15:33 BP 131/67 03/20/20 15:33 Pulse Ox 92 03/20/20 15:33 03/20/20 03/20/20 03/20/20 06:59 14:59 22:59 Intake Total 50 / 270.00 1000 / 1000 Output Total 650 / 1450 700 / 700 Balance -600 / -1180.00 1000 / 1000 -700 / 300 Physical Exam Narrative: EXAM NARRATIVE: I removed the patient's dressing from his right ankle. The wound was evaluated. There was no drainage. There was very minimal swelling. There was no evidence of erythema or infection. The patient was relatively unresponsive to questions, although he was awake and alert. Urinary Catheter Management^: Lisa: Cath Placed During This Visit: yes, but has since been removed by the nurse Reason for Continuing Indwelling Catheter: Other Urinary Catheter Date of Insertion: 03/19/20 Urinary Catheter Time of Insertion: 14:30 Date Urinary Catheter Removed: 03/17/20 Time Urinary Catheter Discontinued: 18:30 Data : 03/20/20 11:45 03/20/20 11:45 A&P Assessment and plan (1) Fracture dislocation of ankle: The patient's dressing was removed. There was no evidence of infection in the ankle. The medial aspect of the ankle did not appear significantly inflamed. There was no drainage from this area. The wound itself also appeared without evidence of infection. Dr. Noyola was contacted after my evaluation and advised that I do not feel that this is the source of the patient's septic appearance. Status: Acute Qualifiers: Encounter type: initial encounter Fracture type: open Laterality: right Open fracture type: open type I or II Qualified Code(s): S82.891B - Other fracture of right lower leg, initial encounter for open fracture type I or II Attestations Medical Necessity Statement*: Per medical service. The patient will need to be capable of nonweightbearing on this right lower extremity. This may require inpatient half-way rehabilitation. Coding Level of Care Code Acute Management Architect for [facility] Diagnoses Fracture dislocation of ankle S82.891B Encounter type: initial encounter Fracture type: open Laterality: right Open fracture type: open type I or II
[2020-03-20] MEDS: gabapentin 300 mg Capsule PO (17:45)
[2020-03-20] MEDS: neomycin-poly-bacitracin oint 0.9 gm Pkt 1 APPLIC TOPICAL (17:46)
[2020-03-20 19:22] LABS: Vancomycin Trough 14.5 ug/mL (10-15)
[2020-03-20 21:05] LABS: Glucose Point of Care 110 mg/dL (70-110)
[2020-03-21] VITALS (14 sets, daily range): BP systolic 124–185; BP diastolic 67–81; PULSE 65–113; RESP 16–24; TEMP 36.7–37.6; O2SAT 90–97
[2020-03-21] MEDS: piperacillin-tazobactam 3.375 GM in sodium chloride 0.9% (plus) 50 ML IV ×3 (03:25→16:39)
[2020-03-21 03:39] LABS: Basophils % 0.2 %; Eosinophils # 0.2 10^3/uL (0.0-0.8); Eosinophils % 1.2 %; Hematocrit 25.1 % (42.0-52.0); Hemoglobin 8.1 g/dL (11.7-16.6); Lymphocytes # 1.3 10^3/uL (0.8-4.8); Lymphocytes % 9.6 %; Mean Corpuscular HGB Conc 32.3 g/dL (30.0-36.0); Mean Corpuscular Hemoglobin 29.7 pg (28.0-34.0); Mean Corpuscular Volume 91.9 fL (80-94); Mean Platelet Volume 11.1 fL (7.4-10.4); Monocytes # 1.5 10^3/uL (0.2-0.9); Monocytes % 10.5 %; Neutrophils # 10.8 10^3/uL (1.8-7.7); Neutrophils % 78.1 %; Nucleated Red Blood Cells % 0 %; Platelet Count 343 10^3/cmm (130-400); Red Blood Count 2.73 10^6/uL (4.1-5.3); Red Cell Distribution Width 14.3 % (12.1-15.1); White Blood Count 13.8 10^3/uL (4.0-10.0)
[2020-03-21 03:58] LABS: Alanine Aminotransferase 29 U/L (0-41); Albumin Level 2.7 g/dL (3.5-5.2); Alkaline Phosphatase 207 IU/L (40-130); Anion Gap 16.4 (5-19); Aspartate Amino Transferase 73 U/L (0-40); Blood Urea Nitrogen 41 mg/dL (8-23); Calcium 8.5 mg/dL (8.5-10.5); Carbon Dioxide 19 mmol/L (22-29); Chloride 109 mmol/L (98-107); Globulin 4.1 g/dL (1.3-4.6); Glomerular Filtration Rate 51.7 mL/min (90-130); Glucose 99 mg/dL (65-115); Osmolality Calculated 288 mOsm/kg (285-295); Potassium 4.4 mmol/L (3.5-5.1); Sodium 140 mmol/L (136-145); Total Bilirubin 0.2 mg/dL (0.15-1.2); Total Protein 6.8 g/dL (6.6-8.7)
[2020-03-21 05:49] LABS: Glucose Point of Care 92 mg/dL (70-110)
--- NOTE | 2020-03-21 06:38 | PM.PN ---
Subjective Subjective: Interval history: Patient has been lethargic per nursing report and once amitriptyline was held off patient got better and was more arousable and coherent Patient denies any abdominal pain Vitals/I&O/Wt Last Vital Signs Temp 99.7 F H 03/21/20 04:00 Pulse 97 03/21/20 04:00 Resp 16 03/21/20 04:00 BP 136/73 03/21/20 04:00 Pulse Ox 94 03/21/20 04:00 03/20/20 03/20/20 03/21/20 14:59 22:59 06:59 Intake Total 1050 / 1050 100 / 1150 460 / 1610 Output Total 700 / 700 Balance 1050 / 1050 -600 / 450 460 / 910 Physical Exam Narrative: EXAM NARRATIVE: Patient is conscious alert oriented X3 BMI 37 Head and neck examination PERRLA no masses no cervical lymphadenopathy no jaundice Abdomen nontender nondistended soft no organomegaly guarding or rigidity/no signs of peritonitis Obese Urinary Catheter Management^: Lisa: Cath Placed During This Visit: yes, but has since been removed by the nurse Reason for Continuing Indwelling Catheter: Acute Urinary Retention or Obstruction Urinary Catheter Date of Insertion: 03/19/20 Urinary Catheter Time of Insertion: 14:30 Date Urinary Catheter Removed: 03/17/20 Time Urinary Catheter Discontinued: 18:30 Data : 03/22/20 05:29 03/22/20 05:29 A&P Assessment and plan (1) Sepsis: We will plan to continue observation, discussed the images with Dr. Joy yesterday does not believe that the patient has acute cholecystitis Repeated physical examination Trending down WBC count Continue to follow Status: Acute Attestations Medical Necessity Statement*: Medical necessity care is expected to cross 2 midnights Time Spent in Patient Care: 16 - 35 minutes (>than 50% of time spent in counselling and/or direct pt care on unit). Coding Level of Care Code Acute Bottling Equipment Sales Representative for [facility] Diagnoses Sepsis A41.9
[2020-03-21] MEDS: HYDROcodone-acetaminophen 5-325 mg Tablet 1 TAB PO (07:42)
[2020-03-21] MEDS: heparin 5,000 unit/mL INJ 1 mL 5000 UNIT SUBCUT ×2 (09:52→20:29)
[2020-03-21] MEDS: gabapentin 300 mg Capsule PO ×2 (09:53→18:00)
[2020-03-21] MEDS: aspirin 81 mg EC Tablet PO (09:53)
[2020-03-21] MEDS: multivitamin therapeutic Tablet 1 TAB PO (09:53)
[2020-03-21] MEDS: amlodipine 10 mg Tablet PO (09:53)
[2020-03-21] MEDS: pramipexole 0.25 mg Tablet PO (09:53)
[2020-03-21] MEDS: pantoprazole DR 40 mg Tablet PO (09:53)
[2020-03-21] MEDS: atorvastatin 40 mg Tablet 20 MG PO (09:53)
[2020-03-21] MEDS: tamsulosin 0.4 mg Capsule PO ×2 (09:54→18:00)
[2020-03-21 10:43] LABS: Glucose Point of Care 142 mg/dL (70-110)
--- NOTE | 2020-03-21 11:27 | ECG_ITS ---
Measurements Intervals [place] Rate: 100 P: 9 DC: 172 QRS: 211 QRSD: 120 T: 31 QT: 381 QTc: 493 SINUS TACHYCARDIA MARKED RIGHT AXIS DEVIATION [QRS AXIS > 100] MODERATE INTRAVENTRICULAR CONDUCTION DELAY [110+ ms QRS DURATION] Compared to ECG 07/22/2018 15:10:14 Right-axis deviation now present Intraventricular conduction delay now present Sinus rhythm no longer present Left-axis deviation no longer present Myocardial infarct finding no longer present Electronically Signed On 03-23-2020 18:23:41 CDT by Venus Mae M.D. [email or web address]
--- NOTE | 2020-03-21 11:38 | PM.PN ---
Subjective Subjective: Interval history: No acute events overnight. Patient has remained hemodynamically stable. Patient blood pressures curve are better today. Examination patient is AO x3, not drowsy anymore. Today morning patient had clogged Lisa catheter so it was replaced. Patient denies of having nausea, vomiting, headache, dizziness. Labs and vitals noted. Vitals/I&O/Wt Last Vital Signs Temp 99.6 F 03/21/20 11:03 Pulse 65 03/21/20 11:03 Resp 18 03/21/20 11:03 BP 146/67 03/21/20 11:03 Pulse Ox 97 03/21/20 11:03 03/20/20 03/21/20 03/21/20 22:59 06:59 14:59 Intake Total 100 / 1150 460 / 1610 250 / 250 Output Total 700 / 700 Balance -600 / 450 460 / 910 250 / 250 Physical Exam Narrative: EXAM NARRATIVE: General: No acute distress, AO x3, HEENT: PERRLA, pupils bilaterally equal and reactive Chest: Normal vesicular breath sounds, no added sounds, equal good air entry bilaterally CVS: S1-S2 regular, no murmurs, no tachycardia, no gallops, no rubs Abdomen: Soft, mild tenderness in right upper quadrant, no guarding or rigidity, no organomegaly, bowel sounds present Neuro: No focal deficits, no facial deformity, AO x3, power 5/5 in all limbs: Extremities: Right lower limb splint present clean and dry and intact. Capillary refill normal in the right toes. Urinary Catheter Management^: Lisa: Cath Placed During This Visit: yes, but has since been removed by the nurse Reason for Continuing Indwelling Catheter: Accurate Measurement of Urinary Output in Critically Ill Patients Urinary Catheter Date of Insertion: 03/19/20 Urinary Catheter Time of Insertion: 14:30 Date Urinary Catheter Removed: 03/17/20 Time Urinary Catheter Discontinued: 18:30 Data : 03/21/20 03:00 03/21/20 03:00 A&P Assessment and plan (1) Sepsis: Status: Acute (2) Metabolic encephalopathy: Status: Acute (3) Fracture dislocation of ankle: Status: Acute Qualifiers: Encounter type: initial encounter Fracture type: open Laterality: right Open fracture type: open type I or II Qualified Code(s): S82.891B - Other fracture of right lower leg, initial encounter for open fracture type I or II (4) Type 2 diabetes mellitus with other specified complication: Status: Acute Qualifiers: Diabetes mellitus adjunct faculty for medical terminology insulin use: without assisted use Qualified Code(s): E11.69 - Type 2 diabetes mellitus with other specified complication (5) BPH (benign prostatic hyperplasia): Status: Chronic Qualifiers: Lower urinary tract symptom detail: incomplete bladder emptying Lower urinary tract symptom presence: symptoms present Qualified Code(s): N40.1 - Benign prostatic hyperplasia with lower urinary tract symptoms; R39.14 - Feeling of incomplete bladder emptying (6) Postoperative urinary retention: Status: Acute (7) Acute kidney injury superimposed on CKD: -Creatinine has increased to 2.3 -baseline creatinine is 1.6 -will require IV hydration and sedation Status: Acute Additional A&P Information Sepsis: Criteria met by fever, heart rate of more than 90, white count of more than 12,000. Procalcitonin elevated. Most likely from gallbladder. CT chest negative for any infiltrate, urinalysis negative for UTI, postop dressing looks clean. Results of CT abdomen, gallbladder ultrasound, HIDA scan noted. Chances of cholangitis are low right now because liver functions are mostly normal with a normal bilirubin. Greatly appreciate Dr. Mauricio's and Dr. Vieira recommendation. As per Dr. Mauricio patient surgical wound looks healthy without any drainage chances of that being a source of infection is very low. As per Dr. Vieira gallbladder being the cause of his pathology is low as well as patient does not have any tenderness on examination. Patient's AST and alkaline phosphatase mild worse than yesterday. Have discussed with Dr. Vieira if patient continues to remain febrile and liver functions continue to get more deranged patient would most likely need cholecystostomy tube. To rule out any other source of infection we will send a repeat UA/urine culture, stool studies to rule out C. difficile. Scrotum ultrasound appreciated. Continue with vancomycin and Zosyn both renally dosed for now. Day 4 of antibiotics today. Will de-escalate antibiotics as per blood culture results. Cultures have remained sterile for now. Vancomycin trough levels appropriate. Bacterial antigen positive for haemophilus antigen Keep mean arterial pressure of 65 mmHg. Keep saturation over 92% with oxygen supplementation. Lisa catheter replaced because patient was retaining more than a 800 cc of urine. Patient would most likely be discharged on Lisa catheter. Metabolic encephalopathy: Resolved. Most likely because of sepsis. ABG done earlier negative hypercarbia and hypoxia Fracture dislocation of ankle: Status post ORIF by Dr. Howell of right trimalleolar fracture after mechanical fall. Continue pain management as per Dr. Howell. Continue physical therapy/anticoagulation as per Dr. Howell. CKD: Creatinine 1.4 today. It seems patient's baseline is 1.4?1.7. Medical reconciliation done for nephrotoxic drugs. Continue to monitor BMP daily. BPH: Patient failed voiding trial. Urine catheter again placed. Patient would most likely be discharged on urine catheter. Continue with Flomax 0.4 mg daily. History of diabetes: Discontinue Januvia as patient with sepsis. Continue with Levemir 40 units daily. Continue with insulin sliding scale at high dose. Blood sugars well maintained. Hypertension: Blood pressure stable for now. Continue home dose of amlodipine. Patient continues to have mild tachycardia. We will start patient on Lopressor 5.5 twice daily. Check EKG to rule out arrhythmia. Continue holding lisinopril for now given SIENNA on CKD. Patient is doing well with physical therapy but continues to put weight on not weightbearing foot. Most likely because patient is not having any pain sensation given nephropathy. Patient is at high danger of developing Charcot's foot. Will discuss with Dr. Howell if patient would need SNF placement. Discussed in detail with patient regarding possibility of needing SNF placement which will be difficult as he does not have any insurance and patient would have to pay [id number]. Also discussed with patient need wants to avoid SNF he needs to work better with physical therapy. Out of bed to chair. Full code. Heparin for DVT prophylaxis Carb consistent diet. Have updated patient's partner Ms. Pickard regarding his health. All the questions were answered. Attestations Medical Necessity Statement*: Sepsis Time Spent in Patient Care: Greater than 35 minutes (>than 50% of time spent in counselling and/or direct pt care on unit). Coding Level of Care Code Acute Decorating Machine Operator for [facility] Diagnoses Sepsis A41.9 Metabolic encephalopathy G93.41 Fracture dislocation of ankle S82.894V Encounter type: initial encounter Fracture type: open Laterality: right Open fracture type: open type I or II Type 2 diabetes mellitus with other specified complication E11.69 Diabetes mellitus adjunct faculty for medical terminology insulin use: without adjunct faculty for medical terminology use BPH (benign prostatic hyperplasia) N40.1; R39.14 Lower urinary tract symptom detail: incomplete bladder emptying Lower urinary tract symptom presence: symptoms present Postoperative urinary retention N99.89; R33.8 Acute kidney injury superimposed on CKD N17.9; N18.9
[2020-03-21 12:45] LABS: Glucose Urine UA Norm (Normal); Ketones Urine 1+ (Negative); Protein Urine Neg (Negative); Specific Gravity, Urine 1.015 (1.005-1.030); Urine Appearance Hazy (CLEAR); Urine Color Yellow (Yellow); pH Urine 5 (5-7)
[2020-03-21 12:46] LABS: Add Urine Culture? Yes; Amorphous Sediment Urine TRACE; Bacteria Urine 1+; Bilirubin Urine Neg (NEGATIVE); Blood Urine 2+ (Negative); Leukocyte Esterase Urine Negative (Negative); Nitrate Urine Negative (Negative); Urobilinogen Urine Norm (Negative)
[2020-03-21 16:54] LABS: Glucose Point of Care 95 mg/dL (70-110)
[2020-03-21] MEDS: metoprolol tartrate 25 mg Tablet 12.5 MG PO (18:00)
[2020-03-21] MEDS: ipratropium-albuterol 3 mL Neb INHALATION (20:17)
[2020-03-21 21:08] LABS: Glucose Point of Care 88 mg/dL (70-110)
[2020-03-21 21:17] LABS: Glucose Point of Care 94 mg/dL (70-110)
[2020-03-22] VITALS (10 sets, daily range): BP systolic 120–154; BP diastolic 66–71; PULSE 75–99; RESP 17–20; TEMP 36.6–37.4; O2SAT 92–96
[2020-03-22] MEDS: piperacillin-tazobactam 3.375 GM in sodium chloride 0.9% (plus) 50 ML IV ×3 (00:30→17:17)
[2020-03-22 05:49] LABS: Basophils % 0.3 %; Eosinophils # 0.2 10^3/uL (0.0-0.8); Eosinophils % 1.9 %; Hematocrit 30.8 % (42.0-52.0); Hemoglobin 9.6 g/dL (11.7-16.6); Lymphocytes # 1.2 10^3/uL (0.8-4.8); Mean Corpuscular HGB Conc 31.2 g/dL (30.0-36.0); Mean Corpuscular Hemoglobin 28.9 pg (28.0-34.0); Mean Corpuscular Volume 92.8 fL (80-94); Mean Platelet Volume 10.4 fL (7.4-10.4); Monocytes # 1.3 10^3/uL (0.2-0.9); Neutrophils # 9.6 10^3/uL (1.8-7.7); Nucleated Red Blood Cells % 0 %; Platelet Count 349 10^3/cmm (130-400); Red Blood Count 3.32 10^6/uL (4.1-5.3); Red Cell Distribution Width 14.5 % (12.1-15.1); White Blood Count 12.5 10^3/uL (4.0-10.0)
[2020-03-22 06:35] LABS: Alanine Aminotransferase 42 U/L (0-41); Albumin Level 2.6 g/dL (3.5-5.2); Alkaline Phosphatase 226 IU/L (40-130); Anion Gap 16.1 (5-19); Aspartate Amino Transferase 103 U/L (0-40); Blood Urea Nitrogen 28 mg/dL (8-23); Calcium 8.4 mg/dL (8.5-10.5); Carbon Dioxide 19 mmol/L (22-29); Chloride 104 mmol/L (98-107); Globulin 3.9 g/dL (1.3-4.6); Glomerular Filtration Rate 61.8 mL/min (90-130); Glucose 95 mg/dL (65-115); Osmolality Calculated 277 mOsm/kg (285-295); Potassium 4.1 mmol/L (3.5-5.1); Sodium 135 mmol/L (136-145); Total Bilirubin 0.3 mg/dL (0.15-1.2); Total Protein 6.5 g/dL (6.6-8.7)
[2020-03-22 06:39] LABS: Glucose Point of Care 89 mg/dL (70-110)
--- NOTE | 2020-03-22 07:50 | P.PN_ITS ---
Subjective Subjective: Interval history: Overall patient feels better denies any abdominal pain Trending down WBC Vitals/I&O/Wt Last Vital Signs Temp 98.1 F 03/22/20 03:20 Pulse 99 03/22/20 03:20 Resp 20 H 03/22/20 03:20 BP 154/71 03/22/20 03:20 Pulse Ox 94 03/22/20 03:20 03/21/20 03/22/20 03/22/20 22:59 06:59 14:59 Intake Total 410 / 710 Output Total 400 / 1675 1300 / 2975 Balance 965 -1300 / -2265 Physical Exam Narrative: EXAM NARRATIVE: Patient is conscious alert oriented X3 BMI 37 Head and neck examination PERRLA no masses no cervical lymphadenopathy no jaundice Abdomen nontender nondistended soft no organomegaly guarding or rigidity/no signs of peritonitis Urinary Catheter Management^: Lisa: Cath Placed During This Visit: yes, but has since been removed by the nurse Reason for Continuing Indwelling Catheter: Accurate Measurement of Urinary Output in Critically Ill Patients Urinary Catheter Date of Insertion: 03/21/20 Urinary Catheter Time of Insertion: 11:15 Date Urinary Catheter Removed: 03/17/20 Time Urinary Catheter Discontinued: 18:30 Data : 03/22/20 05:29 03/22/20 05:29 Micro: Microbiology 03/21/20 16:00 Stool Lactoferrin - Final Stool C.difficile Toxin B Gene (PCR) - Final Occult Blood (FIT) - Final A&P Assessment and plan (1) Sepsis: Advance diet as tolerated Repeated physical examination Trending down WBC count No acute surgical intervention at this point Upon discharge patient, patient will follow-up with me as an outpatient Status: Acute Attestations Medical Necessity Statement*: Per hospitalist service Time Spent in Patient Care: (>than 50% of time spent in counselling and/or direct pt care on unit) . Coding Level of Care Code Acute Staff Therapist for [facility] Diagnoses Sepsis A41.9
[2020-03-22] MEDS: heparin 5,000 unit/mL INJ 1 mL 5000 UNIT SUBCUT ×2 (08:02→19:39)
[2020-03-22] MEDS: atorvastatin 40 mg Tablet 20 MG PO (10:27)
[2020-03-22] MEDS: pramipexole 0.25 mg Tablet PO (10:27)
[2020-03-22] MEDS: tamsulosin 0.4 mg Capsule PO ×2 (10:27→17:17)
[2020-03-22] MEDS: multivitamin therapeutic Tablet 1 TAB PO (10:28)
[2020-03-22] MEDS: aspirin 81 mg EC Tablet PO (10:28)
[2020-03-22] MEDS: metoprolol tartrate 25 mg Tablet 12.5 MG PO ×2 (10:28→17:17)
[2020-03-22] MEDS: pantoprazole DR 40 mg Tablet PO (10:28)
[2020-03-22] MEDS: gabapentin 300 mg Capsule PO ×2 (10:28→17:17)
[2020-03-22] MEDS: amlodipine 10 mg Tablet PO (10:29)
[2020-03-22] MEDS: lisinopril 10 mg Tablet PO (10:31)
--- NOTE | 2020-03-22 10:50 | PC.NURSE ---
pipercillian started at 0832 not ended at this time.
[2020-03-22 10:58] LABS: Glucose Point of Care 96 mg/dL (70-110)
--- NOTE | 2020-03-22 11:45 | PM.PN ---
Subjective Subjective: Interval history: No acute events overnight. In last 24 hours T-max has been 99.7 Fahrenheit. On examination patient is awake alert, denies having any nausea, vomiting, headache, palpitations. He is concerned why is he still having some fevers. Labs and vitals noted Vitals/I&O/Wt Last Vital Signs Temp 99.4 F 03/22/20 11:00 Pulse 85 03/22/20 11:00 Resp 17 03/22/20 11:00 BP 120/69 03/22/20 11:00 Pulse Ox 92 03/22/20 08:00 03/21/20 03/22/20 03/22/20 22:59 06:59 14:59 Intake Total 410 / 710 50 / 760 . Output Total 400 / 1675 1300 / 2975 Balance 10 / -965 -1250 / -2215 . Physical Exam Narrative: EXAM NARRATIVE: General: No acute distress, AO x3, HEENT: PERRLA, pupils bilaterally equal and reactive Chest: Normal vesicular breath sounds, no added sounds, equal good air entry bilaterally CVS: S1-S2 regular, no murmurs, no tachycardia, no gallops, no rubs Abdomen: Soft, mild tenderness in right upper quadrant, no guarding or rigidity, no organomegaly, bowel sounds present Neuro: No focal deficits, no facial deformity, AO x3, power 5/5 in all limbs: Extremities: Right lower limb splint present clean and dry and intact. Capillary refill normal in the right toes. Urinary Catheter Management^: Lisa: Cath Placed During This Visit: yes, but has since been removed by the nurse Reason for Continuing Indwelling Catheter: Acute Urinary Retention or Obstruction Urinary Catheter Date of Insertion: 03/21/20 Urinary Catheter Time of Insertion: 11:15 Date Urinary Catheter Removed: 03/17/20 Time Urinary Catheter Discontinued: 18:30 Data : 03/22/20 05:29 03/22/20 05:29 Micro: Microbiology 03/21/20 11:32 Urine Culture - Preliminary Urine Catheterized 03/21/20 16:00 Stool Lactoferrin - Final Stool C.difficile Toxin B Gene (PCR) - Final Occult Blood (FIT) - Final A&P Assessment and plan (1) Sepsis: Status: Acute (2) Metabolic encephalopathy: Status: Acute (3) Fracture dislocation of ankle: Status: Acute Qualifiers: Encounter type: initial encounter Fracture type: open Laterality: right Open fracture type: open type I or II Qualified Code(s): S82.891B - Other fracture of right lower leg, initial encounter for open fracture type I or II (4) Type 2 diabetes mellitus with other specified complication: Status: Acute Qualifiers: Diabetes mellitus chcf insulin use: without tank terminal gauger use Qualified Code(s): E11.69 - Type 2 diabetes mellitus with other specified complication (5) BPH (benign prostatic hyperplasia): Status: Chronic Qualifiers: Lower urinary tract symptom detail: incomplete bladder emptying Lower urinary tract symptom presence: symptoms present Qualified Code(s): N40.1 - Benign prostatic hyperplasia with lower urinary tract symptoms; R39.14 - Feeling of incomplete bladder emptying (6) Postoperative urinary retention: Status: Acute (7) Acute kidney injury superimposed on CKD: -Creatinine has increased to 2.3 -baseline creatinine is 1.6 -will require IV hydration and sedation Status: Acute Additional A&P Information Sepsis: Criteria met by fever, heart rate of more than 90, white count of more than 12,000. Procalcitonin elevated. Most likely from gallbladder. CT chest negative for any infiltrate, urinalysis negative for UTI, postop dressing looks clean. Results of CT abdomen, gallbladder ultrasound, HIDA scan noted. Chances of cholangitis are low right now because liver functions are mostly normal with a normal bilirubin. Greatly appreciate Dr. Mauricio's and Dr. Vieira recommendation. As per Dr. Mauricio patient surgical wound looks healthy without any drainage chances of that being a source of infection is very low. As per Dr. Vieira gallbladder being the cause of his pathology is low as well as patient does not have any tenderness on examination. Other sources of infection have been ruled out with a repeat UA being negative, stool studies been negative for any infectious source, patient saturating normal on room air, scrotal ultrasound negative for any source of infection. As patient's liver function tests continue to worsen case was further discussed with Dr. Vieira on phone. He states that the concern continues for gallbladder to be the source of patient's sepsis then cholecystostomy tube will be an option while patient does not need any active surgical intervention at present. Continue with vancomycin and Zosyn both renally dosed for now. Day 5 of antibiotics today. Will de-escalate antibiotics as per blood culture results. Cultures have remained sterile for now. Vancomycin trough levels appropriate. Bacterial antigen positive for haemophilus antigen Keep mean arterial pressure of 65 mmHg. Keep saturation over 92% with oxygen supplementation. BPH/urine retention: Lisa catheter replaced because patient was retaining more than a 800 cc of urine. Patient would most likely be discharged on Lisa catheter. Continue with Flomax 0.4 mg twice daily. Metabolic encephalopathy: Resolved. Most likely because of sepsis. ABG done earlier negative hypercarbia and hypoxia Fracture dislocation of ankle: Status post ORIF by Dr. Howell of right trimalleolar fracture after mechanical fall. Continue pain management as per Dr. Howell. Continue physical therapy/anticoagulation as per Dr. Howell. CKD: Most likely secondary to obstructive uropathy due to BPH: Creatinine 1.2 today. It seems patient's baseline is 1.4?1.7. Medical reconciliation done for nephrotoxic drugs. Continue to monitor BMP daily. History of diabetes: Discontinue Januvia as patient with sepsis. Continue with Levemir 40 units daily. Continue with insulin sliding scale at high dose. Blood sugars well maintained. Hypertension: Blood pressure stable for now. Continue with amlodipine, blood pressure higher now so we will start patient on lisinopril but at 10 mg daily. Continue with Lopressor 12.5 mg twice daily. Patient is doing well with physical therapy but continues to put weight on not weightbearing foot. Most likely because patient is not having any pain sensation given nephropathy. Patient is at high danger of developing Charcot's foot. Will discuss with Dr. Howell if patient would need SNF placement. Discussed in detail with patient regarding possibility of needing SNF placement which will be difficult as he does not have any insurance and patient would have to pay [id number]. Also discussed with patient need wants to avoid SNF he needs to work better with physical therapy. Out of bed to chair. Full code. Heparin for DVT prophylaxis Carb consistent diet. Have updated patient's partner Ms. Pickard regarding his health. All the questions were answered. Attestations Medical Necessity Statement*: Sepsis, most likely gallbladder source, post ankle surgery. Time Spent in Patient Care: Greater than 35 minutes Coding Level of Care Code Acute Metal Furnace Operator for [facility] Diagnoses Sepsis A41.9 Metabolic encephalopathy G93.41 Fracture dislocation of ankle S82.891B Encounter type: initial encounter Fracture type: open Laterality: right Open fracture type: open type I or II Type 2 diabetes mellitus with other specified complication E11.69 Diabetes mellitus tank terminal gauger insulin use: without tank terminal gauger use BPH (benign prostatic hyperplasia) N40.1; R39.14 Lower urinary tract symptom detail: incomplete bladder emptying Lower urinary tract symptom presence: symptoms present Postoperative urinary retention N99.89; R33.8 Acute kidney injury superimposed on CKD N17.9; N18.9
[2020-03-22 17:25] LABS: Glucose Point of Care 123 mg/dL (70-110)
[2020-03-22 20:23] LABS: Glucose Point of Care 113 mg/dL (70-110)
[2020-03-23] VITALS (10 sets, daily range): BP systolic 116–135; BP diastolic 62–76; PULSE 74–84; RESP 16–18; TEMP 36.8–37.2; O2SAT 92–96
[2020-03-23] MEDS: piperacillin-tazobactam 3.375 GM in sodium chloride 0.9% (plus) 50 ML IV ×2 (02:06→11:05)
[2020-03-23] MEDS: HYDROcodone-acetaminophen 5-325 mg Tablet 1 TAB PO (03:34)
[2020-03-23 05:55] LABS: Basophils % 0.3 %; Eosinophils # 0.3 10^3/uL (0.0-0.8); Eosinophils % 2.5 %; Hematocrit 31.1 % (42.0-52.0); Hemoglobin 9.7 g/dL (11.7-16.6); Lymphocytes # 1.2 10^3/uL (0.8-4.8); Lymphocytes % 10.2 %; Mean Corpuscular HGB Conc 31.2 g/dL (30.0-36.0); Mean Corpuscular Hemoglobin 28.5 pg (28.0-34.0); Mean Corpuscular Volume 91.5 fL (80-94); Mean Platelet Volume 10.4 fL (7.4-10.4); Monocytes # 1.3 10^3/uL (0.2-0.9); Monocytes % 11.1 %; Neutrophils # 8.9 10^3/uL (1.8-7.7); Neutrophils % 74.8 %; Nucleated Red Blood Cells % 0 %; Platelet Count 372 10^3/cmm (130-400); Red Cell Distribution Width 14.2 % (12.1-15.1); White Blood Count 11.9 10^3/uL (4.0-10.0)
[2020-03-23 06:17] LABS: Alanine Aminotransferase 40 U/L (0-41); Albumin Level 2.4 g/dL (3.5-5.2); Alkaline Phosphatase 222 IU/L (40-130); Anion Gap 16.5 (5-19); Aspartate Amino Transferase 81 U/L (0-40); Blood Urea Nitrogen 22 mg/dL (8-23); Calcium 8.5 mg/dL (8.5-10.5); Carbon Dioxide 21 mmol/L (22-29); Chloride 105 mmol/L (98-107); Globulin 3.9 g/dL (1.3-4.6); Glomerular Filtration Rate 68.3 mL/min (90-130); Glucose 118 mg/dL (65-115); Osmolality Calculated 286 mOsm/kg (285-295); Potassium 3.5 mmol/L (3.5-5.1); Sodium 139 mmol/L (136-145); Total Bilirubin 0.2 mg/dL (0.15-1.2); Total Protein 6.3 g/dL (6.6-8.7)
[2020-03-23 06:28] LABS: Procalcitonin 0.78 ng/mL (0-0.5)
[2020-03-23 06:41] LABS: Glucose Point of Care 114 mg/dL (70-110)
[2020-03-23] MEDS: amlodipine 10 mg Tablet PO (08:00)
[2020-03-23] MEDS: lisinopril 10 mg Tablet PO (08:00)
[2020-03-23] MEDS: aspirin 81 mg EC Tablet PO (08:01)
[2020-03-23] MEDS: gabapentin 300 mg Capsule PO (08:02)
[2020-03-23] MEDS: atorvastatin 40 mg Tablet 20 MG PO (08:02)
[2020-03-23] MEDS: metoprolol tartrate 25 mg Tablet 12.5 MG PO (08:03)
[2020-03-23] MEDS: multivitamin therapeutic Tablet 1 TAB PO (08:03)
[2020-03-23] MEDS: pantoprazole DR 40 mg Tablet PO (08:04)
[2020-03-23] MEDS: heparin 5,000 unit/mL INJ 1 mL 5000 UNIT SUBCUT (08:04)
[2020-03-23] MEDS: pramipexole 0.25 mg Tablet PO (08:05)
[2020-03-23] MEDS: tamsulosin 0.4 mg Capsule PO (08:05)
--- NOTE | 2020-03-23 09:02 | P.PN_ITS ---
Subjective Subjective: Interval history: Patient continues to show clinical improvement Vitals/I&O/Wt Last Vital Signs Temp 98.5 F 03/23/20 07:23 Pulse 84 03/23/20 07:23 Resp 16 03/23/20 07:23 BP 116/62 03/23/20 07:23 Pulse Ox 93 03/23/20 07:23 03/22/20 03/23/20 03/23/20 22:59 06:59 14:59 Intake Total 50 / 524.208 480 / 1004.208 Output Total 425 / 425 1000 / 1425 Balance -375 / 99.208 -520 / -420.792 Physical Exam Narrative: EXAM NARRATIVE: Patient is conscious alert oriented X3 BMI 37 Head and neck examination PERRLA no masses no cervical lymphadenopathy no jaundice Abdomen nontender nondistended soft no organomegaly guarding or rigidity/no signs of peritonitis Obese Urinary Catheter Management^: Lisa: Cath Placed During This Visit: yes, but has since been removed by the nurse Reason for Continuing Indwelling Catheter: Required Immobilization for Trauma or Surgery or Anesthesia Urinary Catheter Date of Insertion: 03/21/20 Urinary Catheter Time of Insertion: 11:15 Date Urinary Catheter Removed: 03/17/20 Time Urinary Catheter Discontinued: 18:30 Data : 03/23/20 05:27 03/23/20 05:27 Micro: Microbiology 03/21/20 11:32 Urine Culture - Final Urine Catheterized 03/18/20 03:07 Blood Culture - Final Blood NO GROWTH AFTER 5 DAYS 03/18/20 03:02 Blood Culture - Final Blood NO GROWTH AFTER 5 DAYS 03/21/20 16:00 Stool Lactoferrin - Final Stool Enteric Pathogens (PCR) - Final C.difficile Toxin B Gene (PCR) - Final Occult Blood (FIT) - Final A&P Assessment and plan (1) Gallbladder hydrops: Consider Actigall for patient's cholestasis 300 mg twice daily Low-fat diet Per my discussion with Dr. Rogers yesterday if continues to be a concern of the gallbladder hydrops to be the cause of the patient's clinical picture what I would recommend is a cholecystostomy tube to drain the gallbladder, then elective cholecystectomy in 4-6weeks. Status: Acute Attestations Medical Necessity Statement*: Per hospitalist Time Spent in Patient Care: (>than 50% of time spent in counselling and/or direct pt care on unit) . Coding Level of Care Code Acute Glazing Machine Operator for Chg Fwd Diagnoses Gallbladder hydrops K82.1
[2020-03-23 10:56] LABS: Glucose Point of Care 132 mg/dL (70-110)
--- NOTE | 2020-03-23 12:34 | PM.DCS ---
Discharge Providers Date of Admission: 03/18/20 12:35 Date of Discharge: March 23, 2020 Attending Provider at Admission: Gregory Howell DO Attending Provider at Discharge: Stuart Noyola MD Consults: Surgery: Dr. Benitez Primary Care Provider: MADELEINE Waldrop Diagnoses at Discharge Discharge Diagnosis (1) Gallbladder hydrops: Status: Acute (2) Metabolic encephalopathy: Status: Acute (3) Sepsis: Status: Acute (4) Diabetic neuropathy: Status: Acute Qualifiers: Diabetes mellitus type: type 2 Diabetes mellitus complication detail: diabetic polyneuropathy Qualified Code(s): E11.42 - Type 2 diabetes mellitus with diabetic polyneuropathy (5) Acute kidney injury superimposed on CKD: Status: Acute (6) Postoperative urinary retention: Status: Acute (7) Fracture dislocation of ankle: Status: Acute Qualifiers: Encounter type: initial encounter Fracture type: open Laterality: right Open fracture type: open type I or II Qualified Code(s): S82.891B - Other fracture of right lower leg, initial encounter for open fracture type I or II (8) Type 2 diabetes mellitus with other specified complication: Status: Acute Qualifiers: Diabetes mellitus terminal gauger insulin use: without usp use Qualified Code(s): E11.69 - Type 2 diabetes mellitus with other specified complication (9) Cholecystitis: Status: Acute Reason for Visit Reason for Visit: Reason For Visit: RIGHT ANKLE DEFORMITY Hospital Course Discharge Summary: Richie Baca is a 59 year old male with past medical history of diabetes, diabetic peripheral neuropathy, hypertension, chronic kidney disease, restless leg syndrome, GERD, BPH who fell in [facility] and suffered 3 malleolar fracture of the right ankle. Status post open reduction and internal fixation by Dr. Howell. Patient underwent the procedure on March 17 and he tolerated the procedure well. Postprocedure time was complicated by patient developing fever going up to 101.2 along with confusion. Patient was transferred over to medicine service as he had developed metabolic encephalopathy due to sepsis. He was started on broad-spectrum antibiotics and source of sepsis was thought. His surgical site continues to look healthy. CT chest abdomen pelvis was done which was negative for any infiltrate, abdominal collection, abdominal pathology other than a distended gallbladder because of which ultrasound gallbladder was done which showed echogenic bile indicted gallbladder. As patient continued to remain febrile and white count continue to trend up HIDA scan was done which showed nonvisualization of gallbladder suspicious of acute cholecystitis along with the possibility of partial obstruction of stricture of common bile duct. For this patient requires an MRCP but he denied for the procedure because of claustrophobia. Surgical consult was sought and repeat gallbladder ultrasound was requested. Repeat imaging showed a distended gallbladder with possibility of hydropic gallbladder. As patient's recovery was slow and he continued to spike intermittent fevers along with worsening liver function tests for possibility of cholecystostomy tube were discussed with surgery. It was recommended to monitor patient for 24-48 more hours. During hospital stay per patient also had recurrent retention of urine for which he was catheterized. Patient was given a voiding trial but he failed. During hospitalization he was found to have an elevated creatinine which would be resolved after catheterization. For this reason patient is being discharged with a Lisa catheter with advised to follow-up with Dr. Foster as an outpatient. An appointment has been set up for patient to see Dr. Foster. He is also been recommended that if patient continues to have a Lisa catheter in place for more than a week to 10 days he should come back to the ER for replacement of Lisa. For sepsis eventually patient's fever broke after being on IV antibiotics for around 5 days. His liver functions have remained stable. Patient is awake alert and working well with physical therapy. He has been discharged on oral Augmentin for 5 more days with advised to follow-up with his primary care provider in 1 week with comprehensive metabolic panel to follow-up his liver function tests and also to follow-up with surgeon in a week for a possibility of cholecystectomy as an outpatient. Patient verbalized understanding of the recommendations and is been discharged in hemodynamically stable condition after being afebrile for more than 24 hours. Physical Exam Narrative: EXAM NARRATIVE: General: No acute distress, AO x3, HEENT: PERRLA, pupils bilaterally equal and reactive Chest: Normal vesicular breath sounds, no added sounds, equal good air entry bilaterally CVS: S1-S2 regular, no murmurs, no tachycardia, no gallops, no rubs Abdomen: Soft, mild tenderness in right upper quadrant, no guarding or rigidity, no organomegaly, bowel sounds present Neuro: No focal deficits, no facial deformity, AO x3, power 5/5 in all limbs: Extremities: Right lower limb splint present clean and dry and intact. Capillary refill normal in the right toes. Urinary Catheter Management^: Lisa: Cath Placed During This Visit: yes, but has since been removed by the nurse Reason for Continuing Indwelling Catheter: Required Immobilization for Trauma or Surgery or Anesthesia Urinary Catheter Date of Insertion: 03/21/20 Urinary Catheter Time of Insertion: 11:15 Date Urinary Catheter Removed: 03/17/20 Time Urinary Catheter Discontinued: 18:30 Discharge Data Data Completed and Pending: Completed Studies During Hospitalization Category Date Time Status CT abdomen pelvis wo con [id number] Stat Cat Scan 03/18/20 12:[address] chest wo con 7 1250 Routine Cat Scan 03/17/20 14:[address] head wo con* 7 0450 Routine Cat Scan 03/18/20 12:38 Completed XR ankle RT 2V 73 600 Routine Exams 03/15/20 Completed XR ankle RT 2V 73 600 Stat Exams 03/15/20 18:05 Completed XR ankle RT min 3 V* [id number] Stat Exams 03/15/20 15:52 Completed XR chest 1V viri ble [id number] Stat Exams 03/18/20 02:25 Completed NM hepatobiliary w phar* [id number] Rout ine Nuc Med 03/19/20 12:00 Completed US gall bladder 7 6705 Routine Ultrasound 03/20/20 11:00 Completed US gall bladder 7 6705 Stat Ultrasound 03/18/20 12:38 Completed US scrotum 64333 Routine Ultrasound 03/20/20 12:50 Completed Pending at discharge Category Date Time Status Clostridium Diffi cile BY PCR Routin e Lab 03/21/20 16:00 Results Enteric Bacterial Panel by PCR Rout ine Lab 03/21/20 16:00 Results Enteric Parasite Panel by PCR Routi ne Lab 03/21/20 16:00 Results Immunochemical Fe sarah OCB Routine Lab 03/21/20 16:00 Results Lactoferrin Routi ne Lab 03/21/20 16:00 Results Sputum Culture an d Gram Stain Stat Lab 03/18/20 11:00 Uncollected Vancomycin Trough Timed Lab 03/23/20 22:00 Ordered Labs from last 24 hours 03/23/20 03/23/20 03/23/20 10:50 06:39 05:27 WBC RBC Hgb Hct MCV MCH MCHC RDW Plt Count MPV Neut % (Auto) Lymph % (Auto) [place] % (Auto) Eos % (Auto) Baso % (Auto) Neut # (Auto) Lymph # (Auto) [place] # (Auto) Eos # (Auto) Baso # (Auto) Nucleated RBC % (a uto) Nucleated RBCs # Sodium Potassium Chloride Carbon Dioxide Anion Gap BUN Creatinine GFR Calculation Glucose POC Glucose 132 114 Calculated Osmolal ity Calcium Total Bilirubin AST ALT Alkaline Phosphata se Total Protein Albumin Globulin Procalcitonin 0.78 H 03/23/20 03/23/20 03/22/20 05:27 05:27 20:15 WBC 11.9 H RBC 3.40 L Hgb 9.7 L Hct 31.1 L MCV 91.5 MCH 28.5 MCHC 31.2 RDW 14.2 Plt Count 372 MPV 10.4 Neut % (Auto) 74.8 Lymph % (Auto) 10.2 [place] % (Auto) 11.1 Eos % (Auto) 2.5 Baso % (Auto) 0.3 Neut # (Auto) 8.9 H Lymph # (Auto) 1.2 [place] # (Auto) 1.3 H Eos # (Auto) 0.3 Baso # (Auto) 0.0 Nucleated RBC % (a uto) 0 Nucleated RBCs # 0.0 Sodium 139 Potassium 3.5 Chloride 105 Carbon Dioxide 21 L Anion Gap 16.5 BUN 22 Creatinine 1.1 GFR Calculation 68.3 L Glucose 118 H POC Glucose 113 Calculated Osmolal ity 286 Calcium 8.5 Total Bilirubin 0.2 AST 81 H ALT 40 Alkaline Phosphata se 222 H Total Protein 6.3 L Albumin 2.4 L Globulin 3.9 Procalcitonin 03/22/20 17:20 WBC RBC Hgb Hct MCV MCH MCHC RDW Plt Count MPV Neut % (Auto) Lymph % (Auto) [place] % (Auto) Eos % (Auto) Baso % (Auto) Neut # (Auto) Lymph # (Auto) [place] # (Auto) Eos # (Auto) Baso # (Auto) Nucleated RBC % (a uto) Nucleated RBCs # Sodium Potassium Chloride Carbon Dioxide Anion Gap BUN Creatinine GFR Calculation Glucose POC Glucose 123 Calculated Osmolal ity Calcium Total Bilirubin AST ALT Alkaline Phosphata se Total Protein Albumin Globulin Procalcitonin Vitals: Last Vital Signs Temp 98.9 F 03/23/20 11:13 Pulse 74 03/23/20 11:13 Resp 16 03/23/20 11:13 BP 134/67 03/23/20 11:13 Pulse Ox 92 03/23/20 11:13 Discharge Plan Discharge Condition: Stable Prescriptions: New oxycodone-acetaminophen 5-325 mg tablet 1 tab PO Q4H PRN (Reason: pain) Qty: 40 RF: 0 Augmentin 875-125 mg tablet 1 tab PO BID 5 Days Qty: 10 RF: 0 metoprolol succinate 25 mg tablet extended release 24 hr 12.5 mg PO DAILY Qty: 30 RF: 0 Continued pantoprazole 40 mg tablet,delayed release (DR/EC) 40 mg PO DAILY 90 Days Qty: 90 RF: 1 pramipexole 0.25 mg tablet 0.25 mg PO DAILY 90 Days Qty: 90 RF: 1 lovastatin 20 mg tablet 20 mg PO DAILY 90 Days Qty: 90 RF: 1 gabapentin 300 mg capsule 300 mg PO BID 90 Days Qty: 180 RF: 1 amlodipine 10 mg tablet 10 ea PO DAILY RF: 0 (DME) pen needle, diabetic 31 gauge x 1/4 needle See Rx Instructions ea .ROUTE .MEDSUPPLY Qty: 30 RF: 0 (DME) FreeStyle Michaela 14 Day Sensor Kit See Rx Instructions .ROUTE .MEDSUPPLY Qty: 1 RF: 0 liraglutide 0.6 mg/0.1 mL (18 mg/3 mL) pen injector 1.8 mg SUBCUT DAILY Qty: 9 RF: 2 Levemir FlexTouch U-100 Insuln 100 unit/mL (3 mL) insulin pen 40 unit SUBCUT DAILY 90 Days Qty: 15 RF: 1 lisinopril 10 mg tablet 10 mg PO DAILY Qty: 30 RF: 2 glipizide 10 mg tablet 10 mg PO DAILY Qty: 30 RF: 2 Januvia 100 mg tablet 100 mg PO DAILY 90 Days Qty: 90 RF: 1 tamsulosin 0.4 mg capsule 0.4 mg PO DAILY RF: 0 Multiple Vitamins Tablet 1 tab PO DAILY RF: 0 Vitamin C 1,000 mg Tablet Extended Release 1,000 mg PO Q12H RF: 0 aspirin 81 mg Tablet,Delayed Release (Dr/Ec) 81 mg PO DAILY RF: 0 iron 325 mg (65 mg iron) Tablet 325 mg PO DAILY RF: 0 Acetaminophen PM 25-500 mg Tablet 1 tab PO BEDTIME PRN (Reason: Sleep) RF: 0 Discontinued amitriptyline 100 mg tablet 200 mg PO .at bedtime PRN (Reason: insomnia) Qty: 60 RF: 2 Discharge Orders: Discharge Order (Routine); Ordered 03/16/20 Ordered By: Gregory Howell Other Ambulatory Orders: DME: Oxygen (Order) Location: None Selected Ordered By: Stuart Noyola Referrals: Jose Armando Vieira MD [Physician] - 04/02/20 8:45 am VERONICA Ordonez, HALL WORKER [Primary Care Provider] - 4-7 days (Please call Thursday to set up a follow up appointment) Huey Foster MD [Physician] - 04/12/20 1:30 pm Gregory Howell DO [Physician] - 03/30/20 10:00 am (Call for appointment time at [phone]. At your follow-up visit we will remove your splint, will assess your surgical site for staple removal. We will also assess the area of skin injury on the inner aspect of your ankle created by your fracture dislocation. You will need to call Thursday and make that appointment for March.) Discharge Diet: Diabetic Discharge Activity: Limit activity as instructed and Use walker/crutches as instructed Patient Instructions: Diabetes and Diet, Cefuroxime (By mouth), Oxycodone/Acetaminophen (By mouth), Low Fat Diet (DC), Open Reduction and Internal Fixation of an Ankle Fracture (DC), Altered Mental Status (GEN) Activity Restrictions/Additional Instructions: Keep splint on Keep splint clean and dry Elevate right ankle to decrease pain and swelling May shower with plastic bag over splint No weightbearing on right lower extremity Walker ambulation as needed No walking on right leg may perform ankle pumps of both ankles and isometric contractions of calf and thigh muscles as well as gluteal squeezes to decrease risk of blood clots and atrophy Call office at [phone] if any questions and concerns and also call the office to set up your appointment for March 30 time of the appointment to be determined Please take the cefuroxime antibiotic 1 twice a day for 7 days for extended oral prophylaxis to prevent infection following surgery. Percocet or oxycodone/acetaminophen may take 1 every 4 hours as needed for pain. Please follow-up with Dr. Foster for BPH/obstructive uropathy. Lisa catheter will remain in until you see with Dr. Foster. If it is more than a week please come to the ER to get your Lisa replaced. Please follow-up with your primary care physician within next 1 week. CMP should be repeated with your primary care physician. Please follow-up with Dr. Vieira within next 7 to 10 days for possible cholecystectomy. Please continue Augmentin for 5 more days to finish a course of antibiotics. Discharge Attestations Time Spent in Discharge Care*: greater than 30 min Specific Discharge Activities: Specific discharge activities: educating patient, discussing with pcp/other providers, discussing with mattress spring encaser/social workers/dc planners, documenting/other paperwork and evaluating patient/reviewing data Status at Discharge: Cognitive status at discharge: cognitively intact, Behavioral status at discharge: cooperative, Functional status at discharge: uses cane/walker Overall status at discharge: patient is progressing back to baseline Quality Metrics Clinical Quality Measures During this hospital stay, did patient experience: None Coding Level of Care Code Acute 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
--- NOTE | 2020-03-23 13:45 | PM.PN ---
Subjective Subjective: Interval history: Patient is ready for discharge at this point. He is more alert and aware. He is improving functionally and his nonweightbearing tolerance is as well. Vitals/I&O/Wt Last Vital Signs Temp 98.9 F 03/23/20 11:13 Pulse 74 03/23/20 11:13 Resp 16 03/23/20 11:13 BP 134/67 03/23/20 11:13 Pulse Ox 92 03/23/20 11:13 03/22/20 03/23/20 03/23/20 22:59 06:59 14:59 Intake Total 50 / 524.208 530 / 1054.208 330 / 330 Output Total 425 / 425 1000 / 1425 Balance -375 / 99.208 -470 / -370.792 330 / 330 Physical Exam Narrative: EXAM NARRATIVE: The patient is up in a chair. Patient he has been working with physical therapy on nonweightbearing. There is no evidence of infection. He is much more awake and alert. Urinary Catheter Management^: Lisa: Cath Placed During This Visit: yes, but has since been removed by the nurse Reason for Continuing Indwelling Catheter: Required Immobilization for Trauma or Surgery or Anesthesia Urinary Catheter Date of Insertion: 03/21/20 Urinary Catheter Time of Insertion: 11:15 Date Urinary Catheter Removed: 03/17/20 Time Urinary Catheter Discontinued: 18:30 Data : 03/23/20 05:27 03/23/20 05:27 Micro: Microbiology 03/21/20 11:32 Urine Culture - Final Urine Catheterized 03/18/20 03:07 Blood Culture - Final Blood NO GROWTH AFTER 5 DAYS 03/18/20 03:02 Blood Culture - Final Blood NO GROWTH AFTER 5 DAYS 03/21/20 16:00 Stool Lactoferrin - Final Stool Enteric Pathogens (PCR) - Final C.difficile Toxin B Gene (PCR) - Final Occult Blood (FIT) - Final A&P Assessment and plan (1) Fracture dislocation of ankle: The patient is ready for discharge. I spoke about the patient with Dr. Rogers. He will follow-up with Dr. Howell as previously scheduled on March 30. Status: Acute Qualifiers: Encounter type: initial encounter Fracture type: open Laterality: right Open fracture type: open type I or II Qualified Code(s): S82.891B - Other fracture of right lower leg, initial encounter for open fracture type I or II Attestations Medical Necessity Statement*: Per hospitalist service. Coding Level of Care Code Acute Manager Shop for [facility] Fwd Diagnoses Fracture dislocation of ankle S82.891B Encounter type: initial encounter Fracture type: open Laterality: right Open fracture type: open type I or II
--- NOTE | 2020-03-23 15:43 | PC.NURSE ---
Dr. Rios verbal ordered for patient to have Lisa cath changed in one week in Out Patient Surgery.
== END 2020-03-23 17:00 | disposition home or self-care (01) | DRG 853 ==
LOC: ER 17:42 → MEDSURG 03-16 07:19
PROVIDERS: Family Medicine; Internal Medicine; Physician Assistant; Admitting Provider Orthopaedic Surgery; Emergency Provider Student in an Organized Health Care Education/Training Program; PCP Nurse Practitioner Family; Visit Provider Student in an Organized Health Care Education/Training Program
PROC: 0QSJ04Z Reposition Right Fibula with Internal Fixation Device, Open Approach (ICD-10-PCS; principal; 2020-03-15 18:30)
DX: A41.9 Sepsis, unspecified organism (principal); G93.41 Metabolic encephalopathy; N17.9 Acute kidney failure, unspecified; K81.0 Acute cholecystitis; K82.1 Hydrops of gallbladder; S82.851A Displaced trimalleolar fracture of right lower leg, initial encounter for closed fracture; W19.XXXA Unspecified fall, initial encounter; Y93.89 Activity, other specified; Y92.512 Supermarket, store or market as the place of occurrence of the external cause; G25.81 Restless legs syndrome; E78.2 Mixed hyperlipidemia; K21.9 Gastro-esophageal reflux disease without esophagitis; Z89.411 Acquired absence of right great toe; N18.9 Chronic kidney disease, unspecified; I12.9 Hypertensive chronic kidney disease with stage 1 through stage 4 chronic kidney disease, or unspecified chronic kidney disease; E11.42 Type 2 diabetes mellitus with diabetic polyneuropathy; Z79.4 Long term (current) use of insulin; N40.1 Benign prostatic hyperplasia with lower urinary tract symptoms; R39.14 Feeling of incomplete bladder emptying; N99.89 Other postprocedural complications and disorders of genitourinary system
CPT/HCPCS: 12345; 27818; 36415; 36416; 36600; 51702; 70450; 71045; 71250; 73600; 73610; 74176; 76000; 76705; 76870; 78227; 80048; 80053; 80202; 81001; 82274; 82803; 82962; 83630; 83735; 83880; 84100; 84145; 85025; 85610; 85730; 86403; 87040; 87086; 87493; 87506; 93005; 94640; 94762; 96365; 96367; 96372; 96375; 96376; 97110; 97116; 97161; 97530; 97760; 99283; 99285; A9537; C1713; G0378; J0690; J0697; J1580; J1644; J1815; J2001; J2060; J2270; J2370; J2405; J2543; J2704; J2710; J3010; J3370; J3490; J7030; J7050

== ENCOUNTER 2020-03-30 12:53 | Outpatient (CLI) | payer BC, OTHER, MEDICAID, SELFPAY ==
[2020-03-30 13:30] VITALS: BP 139/69; PULSE 94; RESP 18; TEMP 36.8; O2SAT 98
--- NOTE | 2020-03-30 14:11 | SUR.PREOP ---
03/30/20 9070 Notes by VERONICA Ordonez noted patient needed a leg strap to keep catheter secured to thigh. Velcro leg strap provided. Patient instructed on how to secure catheter using velcro leg strap. Patient verbalized understanding. Crespo care provided as well. Pt instructed on how to care for crespo at home using good hygiene practices. Patient states crespo is not causing any pain and is draining without difficulty.
[2020-03-30 14:19] LABS: Basophils # 0.1 10^3/uL (0.0-0.1); Basophils % 0.4 %; Eosinophils # 0.3 10^3/uL (0.0-0.8); Hematocrit 36.4 % (42.0-52.0); Hemoglobin 11.4 g/dL (11.7-16.6); Lymphocytes # 1.7 10^3/uL (0.8-4.8); Lymphocytes % 12.1 %; Mean Corpuscular HGB Conc 31.3 g/dL (30.0-36.0); Mean Corpuscular Hemoglobin 28.9 pg (28.0-34.0); Mean Corpuscular Volume 92.4 fL (80-94); Mean Platelet Volume 10.2 fL (7.4-10.4); Monocytes # 0.9 10^3/uL (0.2-0.9); Monocytes % 6.5 %; Neutrophils # 11.1 10^3/uL (1.8-7.7); Neutrophils % 77.5 %; Nucleated Red Blood Cells % 0 %; Platelet Count 740 10^3/cmm (130-400); Red Blood Count 3.94 10^6/uL (4.1-5.3); Red Cell Distribution Width 14.2 % (12.1-15.1); White Blood Count 14.3 10^3/uL (4.0-10.0)
[2020-03-30 14:38] LABS: Prostate Specific Antigen Scr 4.67 ng/mL (0-4); Thyroid Stimulating Hormone 2.38 uIU/mL (0.27-4.20)
[2020-03-30 14:49] LABS: Alanine Aminotransferase 77 U/L (0-41); Albumin Level 3.4 g/dL (3.5-5.2); Alkaline Phosphatase 576 IU/L (40-130); Anion Gap 18.6 (5-19); Aspartate Amino Transferase 35 U/L (0-40); Blood Urea Nitrogen 20 mg/dL (8-23); Carbon Dioxide 25 mmol/L (22-29); Chloride 99 mmol/L (98-107); Globulin 3.5 g/dL (1.3-4.6); Glomerular Filtration Rate 51.7 mL/min (90-130); Glucose 375 mg/dL (65-115); Osmolality Calculated 298 mOsm/kg (285-295); Potassium 4.6 mmol/L (3.5-5.1); Sodium 138 mmol/L (136-145); Total Bilirubin 0.2 mg/dL (0.15-1.2); Total Protein 6.9 g/dL (6.6-8.7)
[2020-03-30 15:19] LABS: Iron 34 ug/dL (59-158)
== END 2020-03-30 12:54 | disposition home or self-care (01) ==
LOC: OPS 12:58
PROVIDERS: PCP Nurse Practitioner Family; Visit Provider Radiology Diagnostic Radiology
DX: N18.9 Chronic kidney disease, unspecified (principal); E11.22 Type 2 diabetes mellitus with diabetic chronic kidney disease; Z79.4 Long term (current) use of insulin; N17.9 Acute kidney failure, unspecified; N40.0 Benign prostatic hyperplasia without lower urinary tract symptoms
CPT/HCPCS: 36415; 73610; 80053; 83540; 84443; 85025; G0103

== ENCOUNTER → 2020-04-26 14:50 | Outpatient (BNVA) | payer BC, SELFPAY | PROVIDERS: PCP Nurse Practitioner Family; Visit Provider Nurse Practitioner Family | DX: I12.9 Hypertensive chronic kidney disease with stage 1 through stage 4 chronic kidney disease, or unspecified chronic kidney disease (principal); E11.22 Type 2 diabetes mellitus with diabetic chronic kidney disease; N18.9 Chronic kidney disease, unspecified; Z79.4 Long term (current) use of insulin; N40.0 Benign prostatic hyperplasia without lower urinary tract symptoms; N39.0 Urinary tract infection, site not specified; E78.2 Mixed hyperlipidemia; D50.9 Iron deficiency anemia, unspecified; M10.9 Gout, unspecified; E11.69 Type 2 diabetes mellitus with other specified complication | CPT/HCPCS: 80053; 80061; 82728; 83036; 83550; 84443; 84550; 85025; G0103 ==

== ENCOUNTER → 2020-05-10 11:21 | Outpatient (BNVA) | payer BC, OTHER, SELFPAY | PROVIDERS: PCP Nurse Practitioner Family; Visit Provider Orthopaedic Surgery | DX: S82.891B Other fracture of right lower leg, initial encounter for open fracture type I or II (principal); S82.891A Other fracture of right lower leg, initial encounter for closed fracture; X58.XXXA Exposure to other specified factors, initial encounter | CPT/HCPCS: 73610 ==

== ENCOUNTER 2020-05-10 14:08 | Outpatient (CLI) | payer BC, OTHER, SELFPAY | END 2020-05-10 14:09 | disposition home or self-care (01) | LOC: SPT 14:10 | PROVIDERS: PCP Nurse Practitioner Family; Visit Provider Orthopaedic Surgery | DX: Z46.89 Encounter for fitting and adjustment of other specified devices (principal); S82.891D Other fracture of right lower leg, subsequent encounter for closed fracture with routine healing; X58.XXXD Exposure to other specified factors, subsequent encounter | CPT/HCPCS: 97760; L1902 ==

== ENCOUNTER → 2020-05-14 11:57 | Outpatient (BNVA) | payer BC, SELFPAY | PROVIDERS: PCP Nurse Practitioner Family; Visit Provider Urology | DX: R39.9 Unspecified symptoms and signs involving the genitourinary system (principal); N99.89 Other postprocedural complications and disorders of genitourinary system; R33.8 Other retention of urine | CPT/HCPCS: G0103 ==

== ENCOUNTER → 2020-09-10 16:33 | Outpatient (BNVA) | payer MEDICARE, SELFPAY | PROVIDERS: PCP Nurse Practitioner Family; Visit Provider Nurse Practitioner Family | DX: E11.69 Type 2 diabetes mellitus with other specified complication (principal); E78.2 Mixed hyperlipidemia; D64.9 Anemia, unspecified; Z23 Encounter for immunization; I10 Essential (primary) hypertension | CPT/HCPCS: 36415; 80053; 80061; 81003; 82728; 83036; 83550; 83721; 83735; 84100; 84443; 85025 ==

== ENCOUNTER → 2020-10-19 13:55 | Outpatient (BNVA) | payer MEDICARE, SELFPAY | PROVIDERS: PCP Nurse Practitioner Family; Visit Provider Nurse Practitioner Family | DX: E11.69 Type 2 diabetes mellitus with other specified complication (principal); M19.90 Unspecified osteoarthritis, unspecified site | CPT/HCPCS: 73562 ==

== ENCOUNTER 2020-11-08 13:14 | Outpatient (RCR) | payer MEDICARE, SELFPAY | END 2020-12-02 23:59 | disposition home or self-care (01) | LOC: SPT 13:14 | PROVIDERS: PCP Nurse Practitioner Family; Referring Provider Orthopaedic Surgery; Visit Provider Orthopaedic Surgery | DX: M25.562 Pain in left knee (principal); M25.561 Pain in right knee | CPT/HCPCS: 97110; 97112; 97116; 97161 ==

== ENCOUNTER → 2020-11-19 13:39 | Outpatient (BNVA) | payer MEDICARE, SELFPAY | PROVIDERS: PCP Nurse Practitioner Family; Referring Provider Nurse Practitioner Family; Visit Provider Internal Medicine | DX: E11.22 Type 2 diabetes mellitus with diabetic chronic kidney disease (principal); N18.30 Chronic kidney disease, stage 3 unspecified; E11.65 Type 2 diabetes mellitus with hyperglycemia; E78.5 Hyperlipidemia, unspecified; I10 Essential (primary) hypertension | CPT/HCPCS: 99205 ==

== ENCOUNTER 2020-12-03 06:00 | Outpatient (RCR) | payer MEDICARE, SELFPAY | END 2020-12-30 23:59 | disposition home or self-care (01) | LOC: SPT 06:00 | PROVIDERS: PCP Nurse Practitioner Family; Referring Provider Orthopaedic Surgery; Visit Provider Orthopaedic Surgery | DX: M25.562 Pain in left knee (principal); M25.561 Pain in right knee | CPT/HCPCS: 97110; 97112; 97116 ==

== ENCOUNTER 2020-12-31 06:00 | Outpatient (RCR) | payer MEDICARE, SELFPAY | END 2021-01-30 23:59 | disposition home or self-care (01) | LOC: SPT 06:00 | PROVIDERS: PCP Nurse Practitioner Family; Referring Provider Orthopaedic Surgery; Visit Provider Orthopaedic Surgery | DX: M25.562 Pain in left knee (principal); M25.561 Pain in right knee | CPT/HCPCS: 97110; 97112 ==

== ENCOUNTER 2021-01-31 06:00 | Outpatient (RCR) | payer MEDICARE, SELFPAY | END 2021-03-01 23:59 | disposition home or self-care (01) | LOC: SPT 06:00 | PROVIDERS: PCP Nurse Practitioner Family; Referring Provider Orthopaedic Surgery; Visit Provider Orthopaedic Surgery | DX: M25.562 Pain in left knee (principal); M25.561 Pain in right knee | CPT/HCPCS: 97110; 97112 ==

== ENCOUNTER → 2021-03-07 15:26 | Outpatient (BNVA) | payer MEDICARE, SELFPAY | PROVIDERS: PCP Nurse Practitioner Family; Visit Provider Nurse Practitioner Family | DX: M10.9 Gout, unspecified (principal); E55.9 Vitamin D deficiency, unspecified; E11.22 Type 2 diabetes mellitus with diabetic chronic kidney disease; E78.5 Hyperlipidemia, unspecified; D50.9 Iron deficiency anemia, unspecified; E11.69 Type 2 diabetes mellitus with other specified complication; N18.30 Chronic kidney disease, stage 3 unspecified | CPT/HCPCS: 80053; 80061; 82306; 83036; 83550; 84443; 84550; 85025 ==

== ENCOUNTER 2021-11-10 17:26 | Inpatient (IN) | payer MEDICARE, MEDICAID, SELFPAY ==
[2021-11-10 18:01] VITALS: BP 74/47; PULSE 90; RESP 14; TEMP 36.7; O2SAT 95; BMI 31.5
--- NOTE | 2021-11-10 18:33 | XRR_ITS ---
PROCEDURE INFORMATION: Exam: XR Chest Exam date and time: 11/10/2021 6:33 PM Age: 61 years old Clinical indication: Other: AMS TECHNIQUE: Imaging protocol: XR of the chest. Views: 1 view. COMPARISON: CR XR chest 1V portable [id number] 03/18/2020 6:56 AM FINDINGS: Lungs: No consolidation. Azygos lobe noted, normal variant. Pleural spaces: Unremarkable. No pleural effusion. No pneumothorax. Heart/Mediastinum: Unremarkable. No cardiomegaly. Bones/joints: Unremarkable. XR/XR chest 1V portable [id number] IMPRESSION: No acute findings.
--- NOTE | 2021-11-10 18:33 | CTR_ITS ---
PROCEDURE INFORMATION: Exam: CT Head Without Contrast Exam date and time: 11/10/2021 6:33 PM Age: 61 years old Clinical indication: Altered mental status/memory loss; Confusion or disorientation; Additional info: AMS TECHNIQUE: Imaging protocol: Computed tomography of the head without contrast. Radiation optimization: All CT scans at this facility use at least one of these dose optimization techniques: automated exposure control; mA and/or kV adjustment per patient size (includes targeted exams where dose is matched to clinical indication); or iterative reconstruction. COMPARISON: CT head wo con* [id number] 03/18/2020 12:57 PM RADIATION DOSE METRICS: Total DLP (mGy-cm): 930.07 FINDINGS: Brain: Small focal area of encephalomalacia in the left occipital lobe is unchanged. No hemorrhage. No mass effect. Cerebral ventricles: No ventriculomegaly. Paranasal sinuses: Visualized sinuses are unremarkable. No fluid levels. Mastoid air cells: Visualized mastoid air cells are well aerated. Bones/joints: Unremarkable. No acute fracture. Soft tissues: Unremarkable. CT/CT head wo con* [id number] IMPRESSION: 1. No acute intracranial abnormality. 2. Small focal area of encephalomalacia in the left occipital lobe is unchanged.
--- NOTE | 2021-11-10 18:35 | ED_ITS ---
HPI - General Adult General: Chief complaint: General Medical Stated complaint: MULTIPLE FALLS, NOT TOILETING SINCE THURSDAY, AMS Time Seen by Provider: 11/10/21 18:09 History of Present Illness: HPI narrative: 61yo diabetic male presenting with worsening mental status over the past 3 days or so. Multiple falls, hasn't urinated in over a day. He's hallucinating and not making sense according to his . Onset (ago): day(s) Radiation: non-radiation Quality: other Pain Consistency: other Exacerbating factors: none Associated symptoms: Reports confusion and weakness (generalized); Deny chest pain, cough, dyspnea, fevers/chills, headache(s), nausea, seizures, short of breath, syncope or vomiting Review of Systems Const: Denies: fever(s) Card: Denies: chest pain or syncope Resp: Denies: dyspnea GI: Denies: nausea or vomiting Neuro: Reports: confusion; Denies: headache(s) PFSH ED PFSH: Medical History Anemia Arthritis BPH (benign prostatic hyperplasia) CKD (chronic kidney disease) Diabetic neuropathy Essential hypertension, benign GERD (gastroesophageal reflux disease) Gout H/O herpes zoster History of fracture of right ankle Influenza vaccine needed Iron (Fe) deficiency anemia Lower urinary tract symptoms Mixed hyperlipidemia due to type 2 diabetes mellitus PVD (peripheral vascular disease) Restless leg Sepsis Sleep difficulties Type 2 diabetes mellitus with other specified complication Vitamin D deficiency Surgical History H/O esophagogastroduodenoscopy Normal 06/18 Hx of colonoscopy 06/18 normal - to return in 10 years (2026) 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 Father , 60 Diabetes Cancer Lymphoma Social History Smoking and tobacco status: never smoked Second hand smoke exposure: No Smoking risk assessment/counseling performed?: No Alcohol intake: never Desire information about alcohol rehabilitation?: No Counseling given: No Desire information about substance/drug rehabilitation?: No Counseling given: No Current occupation: disabled Physical Exam Const: GENERAL APPEARANCE: cooperative, lethargic and frail appearing ORIENTATION/CONSCIOUSNESS: Yes confused and Yes lethargic HENMT: COMMON NORMALS: normocephalic and atraumatic HEAD & SCALP: normocephalic and atraumatic Chest: COMMONS NORMALS: normal inspection of the chest Cardio: COMMON NORMALS: regular rate and regular rhythm RATE: regular rate RHYTHM: regular rhythm GI: COMMON NORMALS: Normal to inspection, nondistended, normoactive bowel sounds present and Soft to palpation PALPATION: Yes Soft to palpation Neuro: MEAGHAN COMA SCALE: document GCS findings Meaghan coma scale eye opening: To sound [place] coma scale verbal response: Confused Meaghan coma scale motor response: Obey commands Meaghan coma scale total score: 13 SENSORIUM/ORIENTATION: Yes lethargic CRANIAL NERVES: Yes CN normal except as noted Course Consultations: Consultation #1: bernardo Vital Signs: Vital signs: Vital Signs Temperature 98.1 F 11/10/21 21:37 Pulse Rate 94 11/10/21 21:37 Respiratory Rate 15 11/10/21 21:37 Blood Pressure 109/58 11/10/21 21:37 Pulse Oximetry 94 11/10/21 21:37 MDM - General Adult MDM Narrative: Medical decision making narrative: Patient presents with acute mental status change. He is mildly lethargic, but not making much sense. He is hyperglycemic, has a leukocytosis, and acutely a creatinine of 3.9. His bicarbonate level is 18, serum ketone testing is not available, the patient is mildly acidotic, but I do not believe he has diabetic ketoacidosis. He has received IV insulin, 2 L of fluid, and a Lisa with immediate output of nearly 1000 mL of urine. He likely has a mild urinary tract infection as well. All of these things can be responsible for his acute mental status change. He will be admitted for acute renal failure and hyperglycemia.. Lab Data: Labs: Lab Results 11/10/21 11/10/21 11/10/21 18:36 18:58 18:58 WBC 12.2 10^3/uL H 10 ^3/uL (4.0-10.0) RBC 4.02 10^6/uL L 10 ^6/uL (4.1-5.3) Hgb 11.8 g/dL g/dL (11.7-16.6) Hct 37.0 % L % (42.0-52.0) MCV 92.0 fl fl (80-94) MCH 29.4 pg pg (28.0-34.0) MCHC 31.9 g/dL g/dL (30.0-36.0) RDW 14.9 % % (12.1-15.1) Plt Count 264 10^3/cmm 10^3 /cmm (130-400) MPV 12.6 fL H fL (7.4-10.4) Neut % (Auto) 81.5 % % Lymph % (Auto) 9.3 % % [place] % (Auto) 7.8 % % Eos % (Auto) 0.7 % % Baso % (Auto) 0.2 % % Neut # (Auto) 9.94 10^3/uL H 10 ^3/uL (1.8-7.7) Lymph # (Auto) 1.1 10^3/uL 10^3/ uL (0.8-4.8) [place] # (Auto) 1.0 10^3/uL H 10^ 3/uL (0.2-0.9) Eos # (Auto) 0.1 10^3/uL 10^3/ uL (0.0-0.8) Baso # (Auto) 0.0 10^3/uL 10^3/ uL (0.0-0.1) Nucleated RBC % (a uto) 0 % % Nucleated RBCs # 0.0 /100WBC /100W BC Specimen Type Arterial Sample Site Brachial, right ABG pH 7.29 L (7.35-7.45) ABG pCO2 43.5 mmHg mmHg (35-45) ABG pO2 63.5 mmHg L mmHg (80.0-100.0) ABG HCO3 20.8 mmol/L L mmo l/L (22-26) ABG Base Excess -5.7 mmol/L L mmo l/L (-2.0-2.0) [place] Test N/a Hematocrit 35.0 % L % (42-52) O2 Delivery Device Room air FiO2 21.0 % % Public Health Epidemiologist ID Amh Sodium Potassium Chloride Carbon Dioxide Anion Gap BUN Creatinine GFR Calculation Glucose POC Glucose Calculated Osmolal ity Lactate 1.8 mmol/L mmol/L (0.5-2.2) Calcium Phosphorus Magnesium Total Bilirubin AST ALT Alkaline Phosphata se Ammonia Troponin T Baselin e Troponin T 120 Min [place] Troponin T C-Reactive Protein NT-Pro-B Natriuret Pep Total Protein Albumin Globulin Urine Color Urine Appearance Urine pH Ur Specific Gravit y Urine Protein Urine Glucose (UA) Urine Ketones Urine Blood Urine Nitrate Urine Bilirubin Urine Urobilinogen Ur Leukocyte [place] Urine RBC Urine WBC Ur Squamous Epith Cells Amorphous Sediment Urine Bacteria Urine Opiates Scre en Ur Barbiturates Sc reen Ur Phencyclidine S crn Ur Amphetamines Sc reen U Benzodiazepines Scrn Urine Cocaine Scre en U Marijuana (THC) Screen Ethyl Alcohol 11/10/21 11/10/21 11/10/21 18:58 19:34 19:34 WBC RBC Hgb Hct MCV MCH MCHC RDW Plt Count MPV Neut % (Auto) Lymph % (Auto) [place] % (Auto) Eos % (Auto) Baso % (Auto) Neut # (Auto) Lymph # (Auto) [place] # (Auto) Eos # (Auto) Baso # (Auto) Nucleated RBC % (a uto) Nucleated RBCs # Specimen Type Sample Site ABG pH ABG pCO2 ABG pO2 ABG HCO3 ABG Base Excess [place] Test Hematocrit O2 Delivery Device FiO2 Public Health Epidemiologist ID Sodium 133 mmol/L L mmol /L (136-145) Potassium 4.9 mmol/L mmol/L (3.5-5.1) Chloride 97 mmol/L L mmol/ L (98-107) Carbon Dioxide 18 mmol/L L mmol/ L (22-29) Anion Gap 22.9 H (5-19) BUN 46 mg/dL H mg/dL (8-23) Creatinine 3.9 mg/dL H mg/dL (0.7-1.2) GFR Calculation 15.7 mL/min L mL/ min (90-130) Glucose 430 mg/dL H mg/dL (65-115) POC Glucose Calculated Osmolal ity 306 mOsm/kg H mOs m/kg (285-295) Lactate Calcium 8.9 mg/dL mg/dL (8.5-10.5) Phosphorus 6.2 mg/dL H mg/dL (2.5-4.5) Magnesium 2.5 mg/dL H mg/dL (1.7-2.3) Total Bilirubin 0.2 mg/dL mg/dL (0.15-1.2) AST 10 U/L U/L (0-40) ALT 11 U/L U/L (0-41) Alkaline Phosphata se 126 IU/L IU/L (40-130) Ammonia 11 umol/L L umol/ L (16-60) Troponin T Baselin e 59 ng/L H ng/L (0-15) Troponin T 120 Min [place] Troponin T C-Reactive Protein 156.0 mg/L H mg/L (0.0-4.9) NT-Pro-B Natriuret Pep 317 pg/mL H pg/mL (0-125) Total Protein 6.6 g/dL g/dL (6.6-8.7) Albumin 3.6 g/dL g/dL (3.5-5.2) Globulin 3.0 g/dL g/dL (1.3-4.6) Urine Color Urine Appearance Urine pH Ur Specific Gravit y Urine Protein Urine Glucose (UA) Urine Ketones Urine Blood Urine Nitrate Urine Bilirubin Urine Urobilinogen Ur Leukocyte [place] Urine RBC Urine WBC Ur Squamous Epith Cells Amorphous Sediment Urine Bacteria Urine Opiates Scre en Ur Barbiturates Sc reen Ur Phencyclidine S crn Ur Amphetamines Sc reen U Benzodiazepines Scrn Urine Cocaine Scre en U Marijuana (THC) Screen Ethyl Alcohol < 10 mg/dL mg/dL (0-10) 11/10/21 11/10/21 11/10/21 21:09 21:30 21:31 WBC RBC Hgb Hct MCV MCH MCHC RDW Plt Count MPV Neut % (Auto) Lymph % (Auto) [place] % (Auto) Eos % (Auto) Baso % (Auto) Neut # (Auto) Lymph # (Auto) [place] # (Auto) Eos # (Auto) Baso # (Auto) Nucleated RBC % (a uto) Nucleated RBCs # Specimen Type Sample Site ABG pH ABG pCO2 ABG pO2 ABG HCO3 ABG Base Excess [place] Test Hematocrit O2 Delivery Device FiO2 Public Health Epidemiologist ID Sodium Potassium Chloride Carbon Dioxide Anion Gap BUN Creatinine GFR Calculation Glucose POC Glucose 407 mg/dL H mg/dL (70-110) Calculated Osmolal ity Lactate Calcium Phosphorus Magnesium Total Bilirubin AST ALT Alkaline Phosphata se Ammonia Troponin T Baselin e Troponin T 120 Min [place] 53.73 ng/L H ng/L (0-15) [place] Troponin T -5.27 ABS# L ABS# (0-10) C-Reactive Protein NT-Pro-B Natriuret Pep Total Protein Albumin Globulin Urine Color Yellow (Yellow) Urine Appearance Clear (CLEAR) Urine pH 5 (5-7) Ur Specific Gravit y 1.015 (1.005-1.030) Urine Protein Neg (Negative) Urine Glucose (UA) 4+ H (Normal) Urine Ketones Negative (Negative) Urine Blood Neg (Negative) Urine Nitrate Negative (Negative) Urine Bilirubin Neg (Negative) Urine Urobilinogen Norm mg/dL mg/dL (Negative) Ur Leukocyte [place] 1+ H (Negative) Urine RBC 0-4 /hpf H /hpf (0-2) Urine WBC 5-10 /hpf H /hpf (0-5) Ur Squamous Epith Cells 0-4 /hpf H /hpf (0-5) Amorphous Sediment Not Reportable Urine Bacteria Trace /hpf /hpf (NONE) Urine Opiates Scre en Ur Barbiturates Sc reen Ur Phencyclidine S crn Ur Amphetamines Sc reen U Benzodiazepines Scrn Urine Cocaine Scre en U Marijuana (THC) Screen Ethyl Alcohol 11/10/21 21:31 WBC RBC Hgb Hct MCV MCH MCHC RDW Plt Count MPV Neut % (Auto) Lymph % (Auto) [place] % (Auto) Eos % (Auto) Baso % (Auto) Neut # (Auto) Lymph # (Auto) [place] # (Auto) Eos # (Auto) Baso # (Auto) Nucleated RBC % (a uto) Nucleated RBCs # Specimen Type Sample Site ABG pH ABG pCO2 ABG pO2 ABG HCO3 ABG Base Excess [place] Test Hematocrit O2 Delivery Device FiO2 Public Health Epidemiologist ID Sodium Potassium Chloride Carbon Dioxide Anion Gap BUN Creatinine GFR Calculation Glucose POC Glucose Calculated Osmolal ity Lactate Calcium Phosphorus Magnesium Total Bilirubin AST ALT Alkaline Phosphata se Ammonia Troponin T Baselin e Troponin T 120 Min [place] Troponin T C-Reactive Protein NT-Pro-B Natriuret Pep Total Protein Albumin Globulin Urine Color Urine Appearance Urine pH Ur Specific Gravit y Urine Protein Urine Glucose (UA) Urine Ketones Urine Blood Urine Nitrate Urine Bilirubin Urine Urobilinogen Ur Leukocyte [place] Urine RBC Urine WBC Ur Squamous Epith Cells Amorphous Sediment Urine Bacteria Urine Opiates Scre en Negative ng/mL ng /mL (Negative) Ur Barbiturates Sc reen Negative ng/mL ng /mL (Negative) Ur Phencyclidine S crn Negative ng/mL ng /mL (Negative) Ur Amphetamines Sc reen Negative ng/mL ng /mL (Negative) U Benzodiazepines Scrn Negative ng/mL ng /mL (Negative) Urine Cocaine Scre en Negative ng/mL ng /mL (Negative) U Marijuana (THC) Screen Negative ng/mL ng /mL (Negative) Ethyl Alcohol Discharge Plan Discharge Patient Disposition: Admitted As Inpatient Clinical Impression: Acute kidney injury superimposed on CKD, Metabolic encephalopathy, Acute urinary retention Condition: Stable Coding Level of Care Code ED Rag Cutting Machine Operator for Jone Fwd Exam Detailed
--- NOTE | 2021-11-10 18:35 | ECG_ITS ---
[facility] Test Date: 2021-11-10 Pat Name: Richie Baca Department: Room: Gender: Male Chemical Pumper: : 1960 Requested By: Paulo Lisa Order Number: [id number] Sherry MD: Venus Mae M.D. Measurements Intervals [employer] Rate: 100 P: 27 MT: 165 QRS: -35 QRSD: 115 T: 22 QT: 354 QTc: 457 Interpretive Statements SINUS TACHYCARDIA LEFT AXIS DEVIATION [QRS AXIS < -30] LOW QRS VOLTAGE IN PRECORDIAL LEADS [QRS DEFLECTION < 1.0 mV IN CHEST LEADS] ANTEROSEPTAL MYOCARDIAL INFARCTION , PROBABLY OLD [40+ ms Q WAVE IN V1-V4] Compared to ECG 03/21/2020 12:15:01 Left-axis deviation now present Low QRS voltage now present Myocardial infarct finding now present Right-axis deviation no longer present Intraventricular conduction delay no longer present Electronically Signed On 11-12-2021 5:05:48 VOCATIONAL TRAINING INSTRUCTOR by Venus Mae M.D. [id number]
[2021-11-10 18:48] LABS: ABG PCO2 43.5 mmHg (35-45); ABG PH Result 7.29 (7.35-7.45); Base Excess ABG -5.7 mmol/L (-2.0-2.0); Blood Gas Operator Identificat AMH; Blood Gas Sample Site Brachial, right; Blood Gas Sample Type Arterial; HCO3 ABG 20.8 mmol/L (22-26); Oxygen Device ROOM AIR; PO2 ABG 63.5 mmHg (80.0-100.0)
[2021-11-10 18:57] VITALS: BP 95/71; PULSE 99; RESP 15; O2SAT 92
[2021-11-10] MEDS: sodium chloride 0.9% 1,000 ML 999 ML IV ×2 (19:07→23:40)
--- NOTE | 2021-11-10 19:08 | PC.NURSE ---
REPORT GIVEN TO MILAGROS [facility]ANCERA ASSUMED CARE.
[2021-11-10 19:14] LABS: Basophils % 0.2 %; Eosinophils # 0.1 10^3/uL (0.0-0.8); Eosinophils % 0.7 %; Hemoglobin 11.8 g/dL (11.7-16.6); Lymphocytes # 1.1 10^3/uL (0.8-4.8); Lymphocytes % 9.3 %; Mean Corpuscular HGB Conc 31.9 g/dL (30.0-36.0); Mean Corpuscular Hemoglobin 29.4 pg (28.0-34.0); Mean Platelet Volume 12.6 fL (7.4-10.4); Monocytes % 7.8 %; Neutrophils # 9.94 10^3/uL (1.8-7.7); Neutrophils % 81.5 %; Nucleated Red Blood Cells % 0 %; Platelet Count 264 10^3/cmm (130-400); Red Blood Count 4.02 10^6/uL (4.1-5.3); Red Cell Distribution Width 14.9 % (12.1-15.1); White Blood Count 12.2 10^3/uL (4.0-10.0)
[2021-11-10 19:28] LABS: Ammonia 11 umol/L (16-60); Lactate (Lactic Acid level) 1.8 mmol/L (0.5-2.2)
[2021-11-10 19:59] LABS: Troponin(5th) Baseline 59 ng/L (0-15)
[2021-11-10 20:06] LABS: Alanine Aminotransferase 11 U/L (0-41); Albumin Level 3.6 g/dL (3.5-5.2); Alkaline Phosphatase 126 IU/L (40-130); Anion Gap 22.9 (5-19); Aspartate Amino Transferase 10 U/L (0-40); Blood Urea Nitrogen 46 mg/dL (8-23); Calcium 8.9 mg/dL (8.5-10.5); Carbon Dioxide 18 mmol/L (22-29); Chloride 97 mmol/L (98-107); Glomerular Filtration Rate 15.7 mL/min (90-130); Glucose 430 mg/dL (65-115); Magnesium 2.5 mg/dL (1.7-2.3); NT Pro B Type Natriuretic Pept 317 pg/mL (0-125); Osmolality Calculated 306 mOsm/kg (285-295); Phosphorus 6.2 mg/dL (2.5-4.5); Potassium 4.9 mmol/L (3.5-5.1); Sodium 133 mmol/L (136-145); Total Bilirubin 0.2 mg/dL (0.15-1.2); Total Protein 6.6 g/dL (6.6-8.7)
[2021-11-10 20:08] LABS: Alcohol Level < 10 mg/dL (0-10)
--- NOTE | 2021-11-10 20:35 | ECG_ITS ---
[facility] Test Date: 2021-11-10 Pat Name: Richie Baca Department: Room: Gender: Male Accountant Property: : 1960 Requested By: Paulo Lisa Order Number: [id number] Sherry MD: Venus Mae M.D. Measurements Intervals [place] Rate: 96 P: 36 [place]: 196 QRS: 95 QRSD: 112 T: 25 QT: 357 QTc: 452 Interpretive Statements SINUS RHYTHM BORDERLINE RIGHT AXIS DEVIATION [QRS AXIS > 90] LOW QRS VOLTAGE IN PRECORDIAL LEADS [QRS DEFLECTION < 1.0 mV IN CHEST LEADS] ANTEROSEPTAL MYOCARDIAL INFARCTION , PROBABLY OLD [40+ ms Q WAVE IN V1-V4] Compared to ECG 11/10/2021 18:45:03 Sinus tachycardia no longer present Left-axis deviation no longer present Myocardial infarct finding still present Electronically Signed On 11-12-2021 5:19:09 PARTNER MARKETING INTERN by Venus Mae M.D. [id number]
[2021-11-10 21:11] LABS: Glucose Point of Care 407 mg/dL (70-110)
[2021-11-10] MEDS: insulin regular-human 100 units/1 mL 10 UNIT IVP (21:12)
[2021-11-10 21:37] VITALS: BP 109/58; PULSE 94; RESP 15; TEMP 36.7; O2SAT 94
[2021-11-10 21:58] LABS: Add Urine Microscopic? YES; Bilirubin Urine Neg (Negative); Blood Urine Neg (Negative); Glucose Urine UA 4+ (Normal); Ketones Urine Negative (Negative); Leukocyte Esterase Urine 1+ (Negative); Nitrate Urine Negative (Negative); Protein Urine Neg (Negative); Specific Gravity, Urine 1.015 (1.005-1.030); Urine Appearance Clear (CLEAR); Urine Color Yellow (Yellow); Urobilinogen Urine Norm (Negative); pH Urine 5 (5-7)
[2021-11-10 22:07] LABS: Amphetamines Screen Urine Negative (Negative); Barbiturates Screen Urine Negative (Negative); Benzodiazepines Screen Urine Negative (Negative); Cocaine Screen Urine Negative (Negative); Opiate Screen Urine Negative (Negative); PCP Screen Urine Negative (Negative); THC Screen Urine Negative (Negative)
[2021-11-10 22:21] LABS: Add Urine Culture? No; Bacteria Urine TRACE /hpf; RBC Urine 0-4 /hpf (0-2); Squamous Epithelial Cell Urine 0-4 /hpf (0-5)
[2021-11-10 22:37] LABS: Troponin 5 2HR 53.73 ng/L (0-15)
[2021-11-10 22:47] LABS: Troponin 5 2HR Delta -5.27 ABS# (0-10)
--- NOTE | 2021-11-10 23:19 | PM.HP ---
Providers/Chief Complaint Admitting Physician: Estefany Carrington Primary Care Provider: MADELEINE Waldrop Chief Complaint: MULTIPLE FALLS, NOT TOILETING SINCE THURSDAY, AMS History of Present Illness Richie Baca is a 61 year old male who presented to the emergency room with chief complaint of alteration of mental status. History is not able to be obtained much from the patient as he is still confused and hallucinating. Information here is obtained from the ER records which simply stated that he had had multiple falls over the last few days and started having audio and visual hallucinations. He was not coherent in his conversations. It was also noted that he not had any urine output for more than a day. He appeared to be in pain in the lower abdominal area. Lisa catheter was placed and more than a liter of urine was obtained quite quickly. Lisa was clamped at that point in time. Laboratory studies showed evidence significant acute kidney injury. He has had previous episodes of urinary retention necessitating Lisa catheter transiently. He has not been interested in self-catheterization in the interim from what I can gather. In addition to urinary abnormalities, blood sugars were elevated. At the time of my evaluation with repeated redirection, he would understand that he was in the hospital. He continued to try to grab at things in the air or on the wall that were not present and asking for things that could see but he was more cooperative. I am not able to get much of any direct information from him although he seemed to realize that he was confused and not quite himself. He asked for water and drink it Review of Systems General: Reports: ROS unobtainable due to medical condition Medications/Allergies Home Medications Medication Instructions Recorded Confirmed Last Taken Type aspirin 81 mg PO DAILY 03/15/20 11/05/21 03/15/20 History ferrous sulfate [iron] 325 mg PO DAILY 03/15/20 11/05/21 03/15/20 History multivitamin [Multiple Vitamins] 1 tab PO DAILY 03/15/20 11/05/21 03/15/20 History pen needle, diabetic 31 gauge x #150 each 04/29/20 11/05/21 Unknown Rx 1/4 blood-glucose meter #1 ea 09/10/20 11/05/21 Unknown Rx flash glucose scanning reader #1 ea 09/10/20 11/05/21 Unknown Rx flash glucose sensor #2 ea 10/09/20 11/05/21 Unknown Rx blood-glucose meter,continuous #1 ea 03/07/21 11/05/21 Unknown Rx blood-glucose transmitter #1 ea 03/07/21 11/05/21 Unknown Rx blood-glucose transmitter #1 ea 03/07/21 11/05/21 Unknown Rx amitriptyline 100 mg PO BEDTIME 11/11/21 11/11/21 Unknown History ascorbic acid (vitamin C) [Vitamin 1,000 mg PO DAILY 11/11/21 11/11/21 Unknown History C] cholecalciferol (vitamin D3) 125 mcg PO DAILY 11/11/21 11/11/21 Unknown History [Vitamin D3] diphenhydramine HCl [Sleep Aid 50 mg PO BEDTIME 11/11/21 11/11/21 Unknown History (diphenhydramine)] diphenhydramine-acetaminophen 2 tab PO BEDTIME 11/11/21 11/11/21 Unknown History [Tylenol PM Extra Strength] gabapentin 300 mg PO BID 11/11/21 11/11/21 Unknown History lisinopril 10 mg PO DAILY 11/11/21 11/11/21 Unknown History lovastatin 20 mg PO DAILY 11/11/21 11/11/21 Unknown History melatonin 40 mg PO BEDTIME 11/11/21 11/11/21 Unknown History methylcellulose (laxative) [Fiber 500 mg PO DAILY 11/11/21 11/11/21 Unknown History Therapy (m-cellulose)] metoprolol succinate 12.5 mg PO DAILY 11/11/21 11/11/21 Unknown History pantoprazole 40 mg PO DAILY 11/11/21 11/11/21 Unknown History pramipexole 0.25 mg PO DAILY 11/11/21 11/11/21 Unknown History sitagliptin [Januvia] 100 mg PO DAILY 11/11/21 11/11/21 Unknown History tamsulosin 0.4 mg PO BEDTIME 11/11/21 11/11/21 Unknown History Allergies Allergy/AdvReac Type Severity Reaction Status Date / Time adhesive tape Allergy ALGY-Hives Verified 11/10/21 17:59 sulfamethoxazole Allergy Unknown Verified 11/10/21 17:59 [From Bactrim] trimethoprim [From Bactrim] Allergy Unknown Verified 11/10/21 17:59 PFSH Acute PFSH: Medical History (Updated 11/11/21 @ 09:52 by Estefany Carrington MD) Arthritis BPH (benign prostatic hyperplasia) CKD (chronic kidney disease) Diabetic neuropathy Essential hypertension, benign Gallbladder hydrops GERD (gastroesophageal reflux disease) Gout H/O herpes zoster History of fracture of right ankle Iron (Fe) deficiency anemia Lower urinary tract symptoms Mixed hyperlipidemia due to type 2 diabetes mellitus Obesity (BMI 30-39.9) Postoperative urinary retention PVD (peripheral vascular disease) Restless leg Sleep difficulties Type 2 diabetes mellitus with other specified complication Vitamin D deficiency Surgical History H/O esophagogastroduodenoscopy Normal 06/18 Hx of colonoscopy 06/18 normal - to return in 10 years (2026) 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 Father , 60 Diabetes Cancer Lymphoma Social History (Updated 11/11/21 @ 09:31 by Estefany Carrington MD) Smoking and tobacco status: never smoked Second hand smoke exposure: No Alcohol intake: never Substance/Drug Use: never Current occupation: disabled Vitals/I&O/Wt Last Vital Signs Temp 98.1 F 11/10/21 21:37 Pulse 94 11/10/21 21:37 Resp 15 11/10/21 21:37 BP 109/58 11/10/21 21:37 Pulse Ox 94 11/10/21 21:37 Weight last 48 hrs Weight 99.79 kg Physical Exam Narrative: EXAM NARRATIVE: Constitutional: Awake, obviously with visual hallucinations, rerstless HEENT: Pupils are 3-4mm diameter bilaterally, no nystagmus, conjunctiva injected, muddy sclera, dry nasal mucosa, very dry oral mucosa, dry lips Neck: Supple, good rom, no pain with palpation Respiratory: Tachypnea, shallow respirations at times but will take a deep breath eventually when asked, some purse lip breathing noted Cardiovascular: Regular rhythm, no murmurs, 2+ pulses x 4 Abdomen: Soft, tenderness in suprapubic region, not distended at time of my exam positive but decreased bowel sounds : Lisa noted with dark yellow urine noted, normal external genitalia Extremities: 1+ pitting edema bilaterally, doughy, no calf tenderness Skin: dry, not erythematous, sores to both knees, shins from recent falls and/or crawling , no mottling, cap refill around 3 seconds Neuro: Audio and visual hallucinations, will personnel consultant each hand the same, not able to stay still, repeated gabbing at stuff in front of him, will make eye contact and has brief spurts where he seems to realized how confused he is followed by not thinking he is confused, toes are down going, cooperated drinking out of a straw with assistance and then held a cup without spilling water on himself, was able to scoot self back up in bed with encouragement Psych: oriented to person, only maintains orientation to place briefly, not oriented to time or situation Urinary Catheter Management^: Lisa: Cath Placed During This Visit: yes Urinary Catheter Date of Insertion: 11/10/21 Data : 11/10/21 18:58 11/10/21 19:34 Other Labs: Radiology Impressions Chest X-Ray 11/10/21 18:33 IMPRESSION: No acute findings. Head CT 11/10/21 18:33 IMPRESSION: 1. No acute intracranial abnormality. 2. Small focal area of encephalomalacia in the left occipital lobe is unchanged. Laboratory Results WBC 12.2 10^3/uL (4.0-10.0) H 11/10/21 18:58 RBC 4.02 10^6/uL (4.1-5.3) L 11/10/21 18:58 Hgb 11.8 g/dL (11.7-16.6) 11/10/21 18:58 Hct 37.0 % (42.0-52.0) L 11/10/21 18:58 MCV 92.0 fl (80-94) 11/10/21 18:58 MCH 29.4 pg (28.0-34.0) 11/10/21 18:58 MCHC 31.9 g/dL (30.0-36.0) 11/10/21 18:58 RDW 14.9 % (12.1-15.1) 11/10/21 18:58 Plt Count 264 10^3/cmm (130-400) 11/10/21 18:58 MPV 12.6 fL (7.4-10.4) H 11/10/21 18:58 Neut % (Auto) 81.5 % 11/10/21 18:58 Lymph % (Auto) 9.3 % 11/10/21 18:58 [place] % (Auto) 7.8 % 11/10/21 18:58 Eos % (Auto) 0.7 % 11/10/21 18:58 Baso % (Auto) 0.2 % 11/10/21 18:58 Neut # (Auto) 9.94 10^3/uL (1.8-7.7) H 11/10/21 18:58 Lymph # (Auto) 1.1 10^3/uL (0.8-4.8) 11/10/21 18:58 [place] # (Auto) 1.0 10^3/uL (0.2-0.9) H 11/10/21 18:58 Eos # (Auto) 0.1 10^3/uL (0.0-0.8) 11/10/21 18:58 Baso # (Auto) 0.0 10^3/uL (0.0-0.1) 11/10/21 18:58 Nucleated RBC % (auto) 0 % 11/10/21 18:58 Nucleated RBCs # 0.0 /100WBC 11/10/21 18:58 Specimen Type Arterial 11/10/21 18:36 Sample Site Brachial, right 11/10/21 18:36 ABG pH 7.29 (7.35-7.45) L 11/10/21 18:36 ABG pCO2 43.5 mmHg (35-45) 11/10/21 18:36 ABG pO2 63.5 mmHg (80.0-100.0) L 11/10/21 18:36 ABG HCO3 20.8 mmol/L (22-26) L 11/10/21 18:36 ABG Base Excess -5.7 mmol/L (-2.0-2.0) L 11/10/21 18:36 [place] Test N/a 11/10/21 18:36 Hematocrit 35.0 % (42-52) L 11/10/21 18:36 O2 Delivery Device Room air 11/10/21 18:36 FiO2 21.0 % 11/10/21 18:36 Post Hole Digger ID Amh 11/10/21 18:36 Sodium 133 mmol/L (136-145) L 11/10/21 19:34 Potassium 4.9 mmol/L (3.5-5.1) 11/10/21 19:34 Chloride 97 mmol/L (98-107) L 11/10/21 19:34 Carbon Dioxide 18 mmol/L (22-29) L 11/10/21 19:34 Anion Gap 22.9 (5-19) H 11/10/21 19:34 BUN 46 mg/dL (8-23) H 11/10/21 19:34 Creatinine 3.9 mg/dL (0.7-1.2) H 11/10/21 19:34 GFR Calculation 15.7 mL/min (90-130) L 11/10/21 19:34 Glucose 430 mg/dL (65-115) H 11/10/21 19:34 POC Glucose 181 mg/dL (70-110) H 11/10/21 23:34 Calculated Osmolality 306 mOsm/kg (285-295) H 11/10/21 19:34 Lactate 1.8 mmol/L (0.5-2.2) 11/10/21 18:58 Calcium 8.9 mg/dL (8.5-10.5) 11/10/21 19:34 Phosphorus 6.2 mg/dL (2.5-4.5) H 11/10/21 19:34 Magnesium 2.5 mg/dL (1.7-2.3) H 11/10/21 19:34 Total Bilirubin 0.2 mg/dL (0.15-1.2) 11/10/21 19:34 AST 10 U/L (0-40) 11/10/21 19:34 ALT 11 U/L (0-41) 11/10/21 19:34 Alkaline Phosphatase 126 IU/L (40-130) 11/10/21 19:34 Ammonia 11 umol/L (16-60) L 11/10/21 18:58 Troponin T Baseline 59 ng/L (0-15) H 11/10/21 19:34 Troponin T 120 Minute 53.73 ng/L (0-15) H 11/10/21 21:30 Delta Troponin T -5.27 ABS# (0-10) L 11/10/21 21:30 C-Reactive Protein 156.0 mg/L (0.0-4.9) H 11/10/21 19:34 NT-Pro-B Natriuret Pep 317 pg/mL (0-125) H 11/10/21 19:34 Total Protein 6.6 g/dL (6.6-8.7) 11/10/21 19:34 Albumin 3.6 g/dL (3.5-5.2) 11/10/21 19:34 Globulin 3.0 g/dL (1.3-4.6) 11/10/21 19:34 Urine Color Yellow (Yellow) 11/10/21 21:31 Urine Appearance Clear (CLEAR) 11/10/21 21:31 Urine pH 5 (5-7) 11/10/21 21:31 Ur Specific [place] 1.015 (1.005-1.030) 11/10/21 21: Urine Protein Neg (Negative) 11/10/21 21: Urine Glucose (UA) 4+ (Normal) H 11/10/21 21:31 Urine Ketones Negative (Negative) 11/10/21 21: Urine Blood Neg (Negative) 11/10/21 21: Urine Nitrate Negative (Negative) 11/10/21 21: Urine Bilirubin Neg (Negative) 11/10/21 21:31 Urine Urobilinogen Norm mg/dL (Negative) 11/10/21 21:31 Ur Leukocyte Esterase 1+ (Negative) H 11/10/21 21:31 Urine RBC 0-4 /hpf (0-2) H 11/10/21 21:31 Urine WBC 5-10 /hpf (0-5) H 11/10/21 21:31 Ur Squamous Epith Cells 0-4 /hpf (0-5) H 11/10/21 21:31 Amorphous Sediment Not Reportable 11/10/21 21:31 Urine Bacteria Trace /hpf (NONE) 11/10/21 21:31 Urine Opiates Screen Negative ng/mL (Negative) 11/10/21 21: Ur Barbiturates Screen Negative ng/mL (Negative) 11/10/21 21: Ur Phencyclidine Scrn Negative ng/mL (Negative) 11/10/21 21:31 Ur Amphetamines Screen Negative ng/mL (Negative) 11/10/21 21: U Benzodiazepines Scrn Negative ng/mL (Negative) 11/10/21 21: Urine Cocaine Screen Negative ng/mL (Negative) 11/10/21 21:31 U Marijuana (THC) Screen Negative ng/mL (Negative) 11/10/21 21:31 Ethyl Alcohol < 10 mg/dL (0-10) 11/10/21 19:34 Micro: Microbiology 11/10/21 18:58 Blood Culture - Preliminary Blood SPECIMEN COLLECTED A&P Assessment and plan (1) Metabolic encephalopathy: Suspect predominantly from acute kidney injury and associated metabolic abnormalities. Cannot rule out toxic/infectious component. Urinalysis is not completely normal but not that impressive. Other infectious source could be considered particularly with mild elevation in white blood count however lactic acid was normal. Acute vascular event could be considered but patient does not have a report of any chest pain, EKGs do not show ST elevation and troponin delta is negative at 2 hours. Also within the differential is ingestion of some kind although urine drug screen and alcohol level are unremarkable. Does not rule out other pharmacological substances. Review of his home medications shows that he is on amitriptyline 100 mg daily and takes some Benadryl containing products. Anticholinergic effect would fit the scenario do a degree. Status: Acute (2) Acute urinary retention: Status: Acute (3) Acute kidney injury superimposed on CKD: Status: Acute (4) Dehydration: Moderate to severe Status: Acute (5) Uncontrolled type 2 diabetes mellitus: Status: Chronic Qualifiers: Glycemic state: with hyperglycemia Qualified Code(s): E11.65 - Type 2 diabetes mellitus with hyperglycemia (6) Essential hypertension, benign: Status: Chronic (7) Hyperlipidemia: Status: Chronic Qualifiers: Hyperlipidemia type: mixed hyperlipidemia Qualified Code(s): E78.2 - Mixed hyperlipidemia (8) Iron (Fe) deficiency anemia: Status: Chronic Qualifiers: Iron deficiency anemia type: unspecified iron deficiency Qualified Code(s): D50.9 - Iron deficiency anemia, unspecified Additional A&P Information Elevated troponin with negative delta at 2 hours Anion gap acidosis from renal failure, cannot completely rule out a component of diabetic ketoacidosis contributing Abnormal urinalysis present on admission Hypotension at presentation which I believe was more vagal in nature from over distended bladder along with volume depletion Admission IV fluids Continue Lisa catheter for close monitoring of urine output and maintenance of bladder outlet Levaquin for coverage of possible urinary tract infection present on admission given abnormal urinalysis, mental status and mild elevation in white blood count. Specimen was catheterized specimen and really somewhat unimpressive with the presentation patient has. Urine culture has been sent Blood cultures have been collected Continue Flomax as long as blood pressures tolerate Continue sliding scale insulin only presently as patient had significant drop with only 10 units of regular insulin in the emergency room from 400s down to 170s. Review of outpatient records indicates patient has not been taking insulin or willing to take insulin regularly although details otherwise are not known. Check hemoglobin A1c Recheck electrolytes in a few hours Continue serial cardiac enzymes Lipid panel in the morning Hold home lisinopri Hold home statin therapy Check CK level Echocardiogram secondary to risk factors for coronary artery disease, nonspecific EKG changes and troponin elevation combined with clinical presentation of hyperglycemia with anion gap acidosis which I cannot completely rule out as being diabetic ketoacidosis, transient hypotension and hallucinations. Continue home aspirin therapy Continue home iron therapy Monitor for signs of any bleeding Subcu heparin for DVT prophylaxis Will need a one-to-one sitter for safety initially given hallucinations. He does respond to orienting him to where he is and what he is doing here but can be disoriented at times and keeps trying to grab things from the air. PPI Supportive care otherwise Anticipate discharge home Anticipate likely follow-up with urology, possibly nephrology, possibly endocrinology as well as primary care provider Plan discussed with patient is much as he is can understand which was very little beyond transiently agreeing that he needed to be in the hospital. Full code as has been ordered in the past, unable to reliably discuss with patient today Attestations Medical Necessity Statement*: Anticipated stay greater than 2 midnights in this patient with acute renal failure, metabolic encephalopathy with hallucinations, significantly uncontrolled diabetes and other issues as noted above. He is requiring IV fluids, serial labs and close monitoring for his safety. Other plan of care is as noted above. At high risk of harm to himself presently in addition to rapid clinical decline in his current state without directly monitored care in the hospital setting. I suspect he does not take much in the way of medications for diabetes at home and will be challenging to manage without a controlled environment initially Coding Level of Care Code Acute Camp Nurse for Jone Lewis Diagnoses Metabolic encephalopathy G93.41 Acute urinary retention R33.8 Acute kidney injury superimposed on CKD N17.9; N18.9 Dehydration E86.0 Uncontrolled type 2 diabetes mellitus E11.65 Glycemic state: with hyperglycemia Essential hypertension, benign I10 Hyperlipidemia E78.2 Hyperlipidemia type: mixed hyperlipidemia Iron (Fe) deficiency anemia D50.9 Iron deficiency anemia type: unspecified iron deficiency
[2021-11-10 23:39] LABS: Glucose Point of Care 181 mg/dL (70-110)
[2021-11-11] VITALS (7 sets, daily range): BP systolic 96–156; BP diastolic 63–89; PULSE 85–99; RESP 15–20; TEMP 36.6–37.5; O2SAT 90–95; BMI 31.6
[2021-11-11 00:25] LABS: Anion Gap 19.4 (5-19); Blood Urea Nitrogen 49 mg/dL (8-23); Calcium 8.5 mg/dL (8.5-10.5); Carbon Dioxide 20 mmol/L (22-29); Chloride 101 mmol/L (98-107); Glomerular Filtration Rate 16.2 mL/min (90-130); Glucose 164 mg/dL (65-115); Magnesium 2.3 mg/dL (1.7-2.3); Osmolality Calculated 299 mOsm/kg (285-295); Phosphorus 5.7 mg/dL (2.5-4.5); Potassium 4.4 mmol/L (3.5-5.1); Sodium 136 mmol/L (136-145)
--- NOTE | 2021-11-11 00:35 | ECG_ITS ---
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 Measurements Intervals [place] Rate: 86 P: 42 MS: 187 QRS: -33 QRSD: 110 T: 39 QT: 349 QTc: 418 Interpretive Statements SINUS RHYTHM LEFT AXIS DEVIATION [QRS AXIS < -30] LOW QRS VOLTAGE IN PRECORDIAL LEADS [QRS DEFLECTION < 1.0 mV IN CHEST LEADS] ANTEROSEPTAL MYOCARDIAL INFARCTION , PROBABLY OLD [40+ ms Q WAVE IN V1-V4] Compared to ECG 11/10/2021 20:26:06 Left-axis deviation now present Myocardial infarct finding still present Electronically Signed On 11-12-2021 5:17:45 WANT AD RECEIVER by Venus Mae M.D. [id number]
[2021-11-11 01:28] LABS: Glucose Point of Care 204 mg/dL (70-110)
[2021-11-11 02:28] LABS: Basophils % 0.3 %; Eosinophils # 0.1 10^3/uL (0.0-0.8); Eosinophils % 1.2 %; Hematocrit 34.6 % (42.0-52.0); Hemoglobin 10.8 g/dL (11.7-16.6); Lymphocytes # 1.7 10^3/uL (0.8-4.8); Lymphocytes % 15.7 %; Mean Corpuscular HGB Conc 31.2 g/dL (30.0-36.0); Mean Corpuscular Hemoglobin 29.4 pg (28.0-34.0); Mean Corpuscular Volume 94.3 fl (80-94); Monocytes # 1.2 10^3/uL (0.2-0.9); Monocytes % 10.4 %; Neutrophils # 7.95 10^3/uL (1.8-7.7); Neutrophils % 71.9 %; Nucleated Red Blood Cells % 0 %; Platelet Count 221 10^3/cmm (130-400); Red Blood Count 3.67 10^6/uL (4.1-5.3)
[2021-11-11 02:41] LABS: Troponin 5 6HR 54.47 ng/L (0-15)
[2021-11-11 02:43] LABS: Anion Gap 22.6 (5-19); Blood Urea Nitrogen 48 mg/dL (8-23); Calcium 9.4 mg/dL (8.5-10.5); Carbon Dioxide 17 mmol/L (22-29); Chloride 102 mmol/L (98-107); Chol HDL Ratio 7.42 mg/dL (1.0-5.00); Cholesterol 193 mg/dL (0-200); Glomerular Filtration Rate 17.8 mL/min (90-130); Glucose 165 mg/dL (65-115); HDL Cholesterol 26 mg/dL (60-100); Magnesium 2.2 mg/dL (1.7-2.3); Osmolality Calculated 300 mOsm/kg (285-295); Phosphorus 5.7 mg/dL (2.5-4.5); Potassium 4.6 mmol/L (3.5-5.1); Sodium 137 mmol/L (136-145); Triglycerides 469 mg/dL (0-150)
[2021-11-11] MEDS: sodium chloride 0.9% 1,000 ML 100 ML IV ×3 (02:44→23:26)
[2021-11-11] MEDS: heparin 5,000 unit/mL INJ 1 mL 5000 UNIT SUBCUT ×2 (02:45→13:50)
[2021-11-11 02:47] LABS: Troponin 5 6HR Delta -4.53 ng/L (0-12)
[2021-11-11 03:00] LABS: LDL Cholesterol Direct 61 mg/dL (0-100)
--- NOTE | 2021-11-11 06:00 | US_ITS ---
WS: [id number] ULTRASOUND RENAL TECHNIQUE: Ultrasound examination of both kidneys. CLINICAL INFORMATION: acute urinary retention and acute renal failure COMPARISON: None. FINDINGS: RIGHT: Right kidney is normal in size and appearance. Echogenicity: Normal. Cortical thickness: 1.7 cm; Normal. Hydronephrosis: None. Perinephric fluid: None. Right kidney measures: 10.9,10.9 cm x 7.2 cm x 6.7 cm. LEFT: Left kidney is normal in size and appearance. Echogenicity: Normal. Cortical thickness: 1.5 cm; Normal. Hydronephrosis: None. Perinephric fluid: None. Left kidney measures: 10.1 cm x 6.1 cm x 6.1 cm. Normal visualized aorta. Decompressed bladder. US/US renal BI* [id number] IMPRESSION: Normal renal ultrasound.
[2021-11-11 07:04] LABS: Estmated Average Glucose 453; Hemoglobin A1C 17.4 % (4.0-6.0)
[2021-11-11] MEDS: insulin lispro 100 unit/1 mL SUBCUT ×4 (08:57→21:56)
[2021-11-11 09:17] LABS: Glucose Point of Care 179 mg/dL (70-110)
--- NOTE | 2021-11-11 09:30 | PC.PHAR ---
PT UNABLE TO VERIFY MEDICATIONS-PTS [facility] [employer] CRISTY [phone] VERIFIED PTS MEDICATIONS
--- NOTE | 2021-11-11 09:42 | PC.CHAP ---
Pastoral Care Encounter/Spiritual Assessment Type of Contact [] Declined hat blocking machine operator visit [] Patient/Family/Request visit [] Outpatient visit [] Follow-up visit [] Physician referral [] Code/Alert [x] Routine visit [] Staff referral [] Actively dying [] Patient sleeping [] Family support [] [] Out of room [] Palliative care [] [] Receiving care in room [] Pre-surgical visit [] Trauma [] Long length of stay [] ICU visit [] Other: Relational/Emotional Strength [] Patient feels connected with others/family/visitors/staff [] Distress [] Loneliness/isolation [] Abandonment Spirituality of Patient [x] Person of Nita [] Attends Hinduism of their Nita [x] Believes in Prayer [] Reads Bible or Roman Catholic materials [x] There are Spiritual issues to be addressed x] Active listening [] Non-anxious presence [] Spiritual/emotional support [] Crisis/trauma care [] Spiritual counseling [] Bereavement support [] Provided bereavement packet [] Provided Bible/devotional materials [] Provided toy/stuffed animal, coloring book to patient or family member [] Provided Communion [] Anointing/[place] [] Salvation [x] Completed spiritual assessment [] Other: Impact on Illness or Injury [] Angry [] Fearful [] Anxious [] Often cries [] Exhaustion [] Unable to work [] Unable to attend shinto [] Unable to walk/stand [] Unable to read [] Unable to drive [] Unable to eat/drink [] Unable to sleep [] Unable to be with family [] Patient intubated [] Other: Summary patient seemed to have some mental issues Time spent with patient 10 min
--- NOTE | 2021-11-11 10:00 | USCV_ITS ---
Richie Baca Age: 61 Gender: M : 1960 Exam Date: 11/11/2021 10:38 Ordering Phys: Estefany Carrington MD Technologist: HUBERT [place]am [place] [facility] [place]: TRANSIENT HYPOTENSION BP: 107 / 65 HR: 98 Rhythm: Sinus Technical Quality: Technically difficult study MEASUREMENTS (Male / Female) Normal Values 2D ECHO LV Diastolic Diameter PLAX 2.4 cm 4.2 - 5.9 / 3.9 - 5.3 cm LV Systolic Diameter PLAX 1.7 cm IVS Diastolic Thickness 1.0 cm 0.6 - 1.0 / 0.6 - 0.9 cm IVS Systolic Thickness 1.6 cm LVPW Diastolic Thickness 1.5 cm 0.6 - 1.0 / 0.6 - 0.9 cm LVPW Systolic Thickness 2.0 cm LVOT Diameter 2.0 cm LV Ejection Fraction 2D Teich 59.5 % LV Ejection Fraction MOD 2C 72.9 % LV Ejection Fraction 2C AL 72.0 % LA Diameter 3.4 cm LA Width 3.5 cm LA Height 3.9 cm RA Width 3.1 cm RA Height 4.2 cm Aorta at Sinotubular Diameter 2.8 cm M-MODE Aortic Annulus Diameter 2.7 cm LA Ao Ratio MM 1.2 DOPPLER AV Peak Velocity 137.0 cm/s LVOT Peak Velocity 95.0 cm/s AV Area Cont Eq vti 2.5 cm squared AV Area Cont Eq pk 2.2 cm squared MV Area PHT 5.6 cm squared Mitral E to A Ratio 0.7 MV E' Velocity 50.0 cm/s Mitral E to MV E' Ratio 10.7 Mitral E to LV E' Lateral Ratio 11.8 Mitral E to LV E' Septal Ratio 9.9 TR Peak Velocity 274.0 cm/s TR Peak Gradient 30.0 mmHg RV Acceleration Time 0.0 s RV Ejection Time 0.2 s RV AcT/ET 0.2 FINDINGS Left Ventricle Normal left ventricular size. LV systolic function is normal with EF of 55-60%.No regional wall motion abnormalities. Grade 1 diastolic dysfunction Right Ventricle The right ventricle is normal in size and function. Right Atrium The right atrium is normal in size. Left Atrium The left atrium is normal in size. Mitral Valve Structurally normal mitral valve without significant stenosis or prolapse. There is trace mitral regurgitation. Aortic Valve Structurally normal aortic valve without significant sclerosis or stenosis. There is no aortic regurgitation. Tricuspid Valve Grossly normal without significant stenosis or regurgitation. Insufficient TR jet to calculate RVSP Pulmonic Valve Not well visualized Pericardium Normal pericardium without effusion. Aorta Normal ascending aorta dimension. CONCLUSIONS Technically limited quality echocardiogram because of poor ultrasonic windows LV systolic function is normal with EF of 55-60% Grade 1 diastolic dysfunction Trace mitral regurgitation No comparison studies are available Cooper Mora MD (Electronically Signed) Final Date: 12 November 2021 17:28 S
[2021-11-11 10:12] LABS: Creatine Phosphokinase 90 U/L (39-308)
[2021-11-11] MEDS: levofloxacin-dextrose 5 % 500 MG/100 ML PREMIX 100 MG IV (11:21)
[2021-11-11 12:23] LABS: Glucose Point of Care 202 mg/dL (70-110)
[2021-11-11] MEDS: metoprolol succinate ER (24 HR) 25 mg Tablet 12.5 MG PO (15:55)
[2021-11-11 16:17] LABS: Anion Gap 18.5 (5-19); Blood Urea Nitrogen 44 mg/dL (8-23); Carbon Dioxide 17 mmol/L (22-29); Chloride 106 mmol/L (98-107); Glomerular Filtration Rate 25.1 mL/min (90-130); Glucose 201 mg/dL (65-115); Iron 28 ug/dL (59-158); Osmolality Calculated 301 mOsm/kg (285-295); Potassium 4.5 mmol/L (3.5-5.1); Sodium 137 mmol/L (136-145); Total Iron Binding Capacity 164 mcg/dl; Unsaturated Iron Binding 136 ug/dL (112-347); Vitamin B12 909 pg/mL (232-1245)
--- NOTE | 2021-11-11 17:34 | PM.PN ---
Subjective Subjective: Interval history: Admitted last night. On examination laying comfortably in bed, sitter at bedside. Lisa in place. On entering the room patient continues he has seen me before and I am the nurse to has been taking care of him for some time. He thinks he is in [place] at his friend's place. Sitter is bedside. He thinks it is either His cock or another nurse. Patient is aware of himself and year. He states it is 2021. Vitals/I&O/Wt Last Vital Signs Temp 98.5 F 11/11/21 15:49 Pulse 98 11/11/21 15:49 Resp 19 H 11/11/21 15:49 BP 138/80 11/11/21 15:49 Pulse Ox 90 11/11/21 15:49 11/11/21 11/11/21 11/11/21 06:59 14:59 22:59 Intake Total 1000 / 2000 1341.667 / 1341.667 Output Total 1400 / 1400 900 / 900 Balance -400 / 600 1341.667 / 1341.667 -900 / 441.667 Weight last 48 hrs Weight 99.96 kg Weight 99.79 kg Physical Exam Narrative: EXAM NARRATIVE: General: No acute distress, alert to self and year, delirious, obese HEENT: PERRLA, pupils bilaterally equal and reactive Chest: Normal vesicular breath sounds, no added sounds, equal good air entry bilaterally CVS: S1-S2 regular, no murmurs, no tachycardia, no gallops, no rubs Abdomen: Soft, nontender, no organomegaly, bowel sounds present Neuro: No focal deficits, no facial deformity, AO x3, power 5/5 in all limbs Urinary Catheter Management^: Lisa: Cath Placed During This Visit: yes Reason for Continuing Indwelling Catheter: Acute Urinary Retention or Obstruction Urinary Catheter Date of Insertion: 11/10/21 Data : 11/11/21 02:00 11/11/21 15:22 Micro: Microbiology 11/11/21 10:41 Blood Culture - Preliminary Blood SPECIMEN COLLECTED 11/10/21 18:58 Blood Culture - Preliminary Blood SPECIMEN COLLECTED A&P Assessment and plan (1) Metabolic encephalopathy: Most likely a combination of acute kidney injury along with polypharmacy in setting of acute kidney injury namely secondary to possible amitriptyline, Benadryl and gabapentin. Cannot rule out infectious cause though unlikely given normal lactate, afebrile status, negative UA and chest x-ray. Continue to monitor. Frequent reorientation. Sitter at bedside. Check folate, B12 levels. Urine drug screen, urinalysis appreciated. Check urine Legionella, bacterial antigen. Less likely infectious. For now hold off on Levaquin given SIENNA. Switch to ceftriaxone 1 g daily and doxycycline 100 mg twice daily. Hold off on amitriptyline and Benadryl. Restart gabapentin at a lower dose to avoid withdrawal at 100 mg 3 times daily. Status: Acute (2) Acute urinary retention: Increase home dose of Flomax to 0.8 nightly Status: Acute (3) Acute kidney injury superimposed on CKD: Most likely secondary to acute urinary retention. Check urine lites, urine creatinine, urine eosinophils. Appreciate renal ultrasound. Check echocardiogram. Monitor BMP daily. Continue with Lisa catheterization for strict input output charting. Status: Acute (4) Uncontrolled type 2 diabetes mellitus: A1c 17.4. Continue with insulin sliding scale at high dose protocol. IV hydration with normal saline 100 cc/h. Status: Chronic Qualifiers: Glycemic state: with hyperglycemia Qualified Code(s): E11.65 - Type 2 diabetes mellitus with hyperglycemia (5) Dehydration: Moderate to severe Status: Acute (6) High anion gap metabolic acidosis: Most likely secondary to SIENNA on CKD. Less likely secondary DKA. Repeat BMP in evening. Continued IV hydration and high insulin dose protocol. Check serum ketones. Status: Acute (7) Essential hypertension, benign: Status: Chronic (8) BPH (benign prostatic hyperplasia): Status: Chronic Qualifiers: Lower urinary tract symptom presence: symptoms present Lower urinary tract symptom detail: incomplete bladder emptying Qualified Code(s): N40.1 - Benign prostatic hyperplasia with lower urinary tract symptoms; R39.14 - Feeling of incomplete bladder emptying (9) Restless leg: Status: Chronic (10) Type 2 diabetes mellitus with other specified complication: Status: Chronic Qualifiers: Diabetes mellitus long term care administrator insulin use: without long term care administrator use Qualified Code(s): E11.69 - Type 2 diabetes mellitus with other specified complication (11) Hyperlipidemia: Status: Chronic Qualifiers: Hyperlipidemia type: mixed hyperlipidemia Qualified Code(s): E78.2 - Mixed hyperlipidemia (12) Iron (Fe) deficiency anemia: Status: Chronic Qualifiers: Iron deficiency anemia type: unspecified iron deficiency Qualified Code(s): D50.9 - Iron deficiency anemia, unspecified Additional A&P Information Full code. Carb consistent renal nondialysis diet. Protonix for PUD prophylaxis. Heparin for DVT prophylaxis Attestations Medical Necessity Statement*: Requires follow-up foot revision for management of metabolic encephalopathy, acute urinary retention leading to SIENNA on CKD, uncontrolled type 2 diabetes mellitus Time Spent in Patient Care: Greater than 35 minutes (>than 50% of time spent in counselling and/or direct pt care on unit). Coding Level of Care Code Acute Test Hole Driller for Chg Fwd Diagnoses Metabolic encephalopathy G93.41 Acute urinary retention R33.8 Acute kidney injury superimposed on CKD N17.9; N18.9 Uncontrolled type 2 diabetes mellitus E11.65 Glycemic state: with hyperglycemia Dehydration E86.0 High anion gap metabolic acidosis E87.2 Essential hypertension, benign I10 BPH (benign prostatic hyperplasia) N40.1; R39.14 Lower urinary tract symptom presence: symptoms present Lower urinary tract symptom detail: incomplete bladder emptying Restless leg G25.81 Type 2 diabetes mellitus with other specified complication E11.69 Diabetes mellitus long term care administrator insulin use: without long term care administrator use Hyperlipidemia E78.2 Hyperlipidemia type: mixed hyperlipidemia Iron (Fe) deficiency anemia D50.9 Iron deficiency anemia type: unspecified iron deficiency
[2021-11-11 17:36] LABS: Glucose Point of Care 210 mg/dL (70-110)
[2021-11-11] MEDS: doxycycline 100 mg Tablet PO (17:40)
[2021-11-11] MEDS: gabapentin 300 mg Capsule PO (17:41)
[2021-11-11] MEDS: ferrous sulfate EC 325 mg Tablet PO (17:41)
[2021-11-11 17:43] LABS: Folate Level > 20.0 ng/mL (4.5-32.2)
[2021-11-11] MEDS: cefTRIAXone 1,000 MG in sodium chloride 0.9% (plus) 50 ML 100 MG IV (18:10)
[2021-11-11 18:35] LABS: Eosinophil Urine No Eosinophils Seen; Urine Eosinophil Count 0 (0-0)
[2021-11-11 18:41] LABS: Potassium, Radom Urine 11 mmol/L; Urine Creatinine 56 mg/dL (39-259); Urine Random Chloride 54 mmol/L; Urine Random Sodium 73 mmol/L
[2021-11-11] MEDS: atorvastatin 40 mg Tablet PO (21:29)
[2021-11-11] MEDS: tamsulosin 0.4 mg Capsule 0.8 MG PO (21:29)
[2021-11-11] MEDS: aspirin 81 mg EC Tablet PO (21:29)
[2021-11-11 21:46] LABS: Glucose Point of Care 199 mg/dL (70-110)
[2021-11-12] VITALS (7 sets, daily range): BP systolic 128–160; BP diastolic 64–82; PULSE 86–97; RESP 16–18; TEMP 36.5–37.5; O2SAT 90–96
[2021-11-12] MEDS: heparin 5,000 unit/mL INJ 1 mL 5000 UNIT SUBCUT ×2 (01:43→12:59)
[2021-11-12 06:42] LABS: Glucose Point of Care 176 mg/dL (70-110)
[2021-11-12 07:05] LABS: Basophils % 0.5 %; Eosinophils # 0.2 10^3/uL (0.0-0.8); Eosinophils % 2.4 %; Hematocrit 34.2 % (42.0-52.0); Hemoglobin 10.5 g/dL (11.7-16.6); Lymphocytes # 1.7 10^3/uL (0.8-4.8); Lymphocytes % 20.1 %; Mean Corpuscular HGB Conc 30.7 g/dL (30.0-36.0); Mean Corpuscular Hemoglobin 28.3 pg (28.0-34.0); Mean Corpuscular Volume 92.2 fl (80-94); Mean Platelet Volume 11.6 fL (7.4-10.4); Monocytes # 0.8 10^3/uL (0.2-0.9); Monocytes % 9.9 %; Neutrophils # 5.48 10^3/uL (1.8-7.7); Neutrophils % 66.4 %; Nucleated Red Blood Cells % 0 %; Platelet Count 269 10^3/cmm (130-400); Red Blood Count 3.71 10^6/uL (4.1-5.3); Red Cell Distribution Width 12.7 % (12.1-15.1); White Blood Count 8.3 10^3/uL (4.0-10.0)
[2021-11-12 07:23] LABS: Alanine Aminotransferase 8 U/L (0-41); Albumin Level 3.2 g/dL (3.5-5.2); Alkaline Phosphatase 119 IU/L (40-130); Anion Gap 17.8 (5-19); Aspartate Amino Transferase 9 U/L (0-40); Blood Urea Nitrogen 36 mg/dL (8-23); Calcium 8.3 mg/dL (8.5-10.5); Carbon Dioxide 19 mmol/L (22-29); Chloride 109 mmol/L (98-107); Glucose 186 mg/dL (65-115); Osmolality Calculated 305 mOsm/kg (285-295); Potassium 4.8 mmol/L (3.5-5.1); Sodium 141 mmol/L (136-145); Total Bilirubin 0.2 mg/dL (0.15-1.2); Total Protein 6.2 g/dL (6.6-8.7)
[2021-11-12] MEDS: insulin lispro 100 unit/1 mL SUBCUT ×4 (08:18→21:58)
[2021-11-12] MEDS: ferrous sulfate EC 325 mg Tablet PO ×2 (08:19→17:49)
[2021-11-12] MEDS: sodium chloride 0.9% 1,000 ML 100 ML IV ×2 (08:19→17:48)
[2021-11-12] MEDS: pantoprazole DR 40 mg Tablet PO (08:19)
[2021-11-12] MEDS: metoprolol succinate ER (24 HR) 25 mg Tablet 12.5 MG PO (08:19)
[2021-11-12] MEDS: doxycycline 100 mg Tablet PO ×2 (08:19→17:46)
[2021-11-12] MEDS: gabapentin 100 mg Capsule PO ×2 (08:19→17:46)
[2021-11-12] MEDS: amlodipine 10 mg Tablet PO (10:26)
[2021-11-12 11:18] LABS: Glucose Point of Care 214 mg/dL (70-110)
--- NOTE | 2021-11-12 15:43 | PM.PN ---
Subjective Subjective: Interval history: No occurrence overnight. Today morning examination with sitter at bedside patient is a lot more awake and alert. He is able to self, place, year. He is not aware why he is in the hospital. States he usually gets confused if he remains in the hospital for long. Agreeable to go to SNF if needed. Pleasant. Vitals/I&O/Wt Last Vital Signs Temp 98.1 F 11/12/21 15:32 Pulse 90 11/12/21 15:32 Resp 16 11/12/21 15:32 BP 129/70 11/12/21 15:32 Pulse Ox 96 11/12/21 15:32 11/12/21 11/12/21 11/12/21 06:59 14:59 22:59 Intake Total 2368.333 / 2368.333 Output Total 1300 / 2650 500 / 500 Balance -1300 / -934.016 7680.333 / 1868.333 Weight last 48 hrs Weight 99.96 kg Weight 99.79 kg Physical Exam Narrative: EXAM NARRATIVE: General: No acute distress, AO x3, pleasant, talkative HEENT: PERRLA, pupils bilaterally equal and reactive Chest: Normal vesicular breath sounds, no added sounds, equal good air entry bilaterally CVS: S1-S2 regular, no murmurs, no tachycardia, no gallops, no rubs Abdomen: Soft, nontender, no organomegaly, bowel sounds present Neuro: No focal deficits, no facial deformity, AO x3, power 5/5 in all limbs Urinary Catheter Management^: Lisa: Cath Placed During This Visit: yes Reason for Continuing Indwelling Catheter: Acute Urinary Retention or Obstruction Urinary Catheter Date of Insertion: 11/10/21 Data : 11/12/21 06:20 11/12/21 06:20 Micro: Microbiology 11/11/21 10:41 Blood Culture - Preliminary Blood NEGATIVE TO DATE 11/11/21 18:00 Bacterial Antigens - Final Urine Kidney 11/11/21 18:00 Legionella Urinary Antigen - Final Unknown Source 11/10/21 18:58 Blood Culture - Preliminary Blood NEGATIVE TO DATE A&P Assessment and plan (1) Metabolic encephalopathy: Resolving. Most likely a combination of acute kidney injury along with polypharmacy in setting of acute kidney injury namely secondary to possible amitriptyline, Benadryl and gabapentin. Cannot rule out infectious cause though unlikely given normal lactate, afebrile status, negative UA and chest x-ray. Continue to monitor. Frequent reorientation. Sitter at bedside. Vitamin B12, folate levels within normal limits. Urine drug screen, urinalysis appreciated. Urine Legionella contact her antigen negative. Stop ceftriaxone. Continue doxycycline to finish a 5-day course. Hold off on amitriptyline and Benadryl. Restart gabapentin at a lower dose to avoid withdrawal at 100 mg 3 times daily. Status: Acute (2) Acute urinary retention: Increase home dose of Flomax to 0.8 nightly Status: Acute (3) Acute kidney injury superimposed on CKD: Resolving. Creatinine almost back to baseline. Most likely secondary to acute urinary retention. Appreciate renal ultrasound. Check echocardiogram. Pending. Monitor BMP daily. Continue with Lisa catheterization for acute retention and input output charting. Status: Acute (4) Uncontrolled type 2 diabetes mellitus: A1c 17.4. Continue with insulin sliding scale at high dose protocol. IV hydration with normal saline 100 cc/h. Status: Chronic Qualifiers: Glycemic state: with hyperglycemia Qualified Code(s): E11.65 - Type 2 diabetes mellitus with hyperglycemia (5) Dehydration: Moderate to severe Status: Acute (6) High anion gap metabolic acidosis: Resolving. Most likely secondary to SIENNA on CKD. Less likely secondary DKA. Repeat BMP in evening. Continued IV hydration and high insulin dose protocol. Check serum ketones. Status: Acute (7) Essential hypertension, benign: Status: Chronic (8) BPH (benign prostatic hyperplasia): Status: Chronic Qualifiers: Lower urinary tract symptom presence: symptoms present Lower urinary tract symptom detail: incomplete bladder emptying Qualified Code(s): N40.1 - Benign prostatic hyperplasia with lower urinary tract symptoms; R39.14 - Feeling of incomplete bladder emptying (9) Restless leg: Status: Chronic (10) Type 2 diabetes mellitus with other specified complication: Status: Chronic Qualifiers: Diabetes mellitus petroleum terminal plant operator insulin use: without assisted use Qualified Code(s): E11.69 - Type 2 diabetes mellitus with other specified complication (11) Hyperlipidemia: Status: Chronic Qualifiers: Hyperlipidemia type: mixed hyperlipidemia Qualified Code(s): E78.2 - Mixed hyperlipidemia (12) Iron (Fe) deficiency anemia: Status: Chronic Qualifiers: Iron deficiency anemia type: unspecified iron deficiency Qualified Code(s): D50.9 - Iron deficiency anemia, unspecified (13) Noncompliance: Status: Acute Additional A&P Information Full code. Carb consistent renal nondialysis diet. Protonix for PUD prophylaxis. Heparin for DVT prophylaxis Discharge planning: Discussed in detail with the patient. Patient is more awake and alert today. Agreeable for SNF placement for short-term if needed. Physical therapy evaluation. Case management alerted. Attestations Medical Necessity Statement*: Requires further hospitalization for management of resolving metabolic encephalopathy in setting of polypharmacy, acute kidney injury secondary to urinary retention, uncontrolled type 2 diabetes mellitus. Discharge planning is sought. Time Spent in Patient Care: Greater than 35 minutes (>than 50% of time spent in counselling and/or direct pt care on unit). Coding Level of Care Code Acute Microfilm Processor for Chg Fwd Diagnoses Metabolic encephalopathy G93.41 Acute urinary retention R33.8 Acute kidney injury superimposed on CKD N17.9; N18.9 Uncontrolled type 2 diabetes mellitus E11.65 Glycemic state: with hyperglycemia Dehydration E86.0 High anion gap metabolic acidosis E87.2 Essential hypertension, benign I10 BPH (benign prostatic hyperplasia) N40.1; R39.14 Lower urinary tract symptom presence: symptoms present Lower urinary tract symptom detail: incomplete bladder emptying Restless leg G25.81 Type 2 diabetes mellitus with other specified complication E11.69 Diabetes mellitus petroleum terminal plant operator insulin use: without assisted use Hyperlipidemia E78.2 Hyperlipidemia type: mixed hyperlipidemia Iron (Fe) deficiency anemia D50.9 Iron deficiency anemia type: unspecified iron deficiency Noncompliance Z91.19
[2021-11-12 17:12] LABS: Glucose Point of Care 263 mg/dL (70-110)
[2021-11-12] MEDS: atorvastatin 40 mg Tablet PO (20:59)
[2021-11-12] MEDS: aspirin 81 mg EC Tablet PO (20:59)
[2021-11-12] MEDS: tamsulosin 0.4 mg Capsule 0.8 MG PO (20:59)
[2021-11-12 21:51] LABS: Glucose Point of Care 314 mg/dL (70-110)
[2021-11-12] MEDS: insulin glargine 100 units/1 mL 20 UNIT SUBCUT (22:11)
[2021-11-13] VITALS (7 sets, daily range): BP systolic 123–159; BP diastolic 61–86; PULSE 78–87; RESP 16–18; TEMP 36.3–36.9; O2SAT 91–98
[2021-11-13] MEDS: heparin 5,000 unit/mL INJ 1 mL 5000 UNIT SUBCUT ×2 (01:59→13:49)
[2021-11-13] MEDS: sodium chloride 0.9% 1,000 ML 100 ML IV (04:10)
[2021-11-13 06:27] LABS: Glucose Point of Care 236 mg/dL (70-110)
[2021-11-13 07:04] LABS: Alanine Aminotransferase 8 U/L (0-41); Albumin Level 3.3 g/dL (3.5-5.2); Alkaline Phosphatase 114 IU/L (40-130); Anion Gap 15.2 (5-19); Aspartate Amino Transferase 10 U/L (0-40); Blood Urea Nitrogen 24 mg/dL (8-23); Calcium 8.8 mg/dL (8.5-10.5); Carbon Dioxide 22 mmol/L (22-29); Chloride 109 mmol/L (98-107); Glomerular Filtration Rate 55.9 mL/min (90-130); Glucose 223 mg/dL (65-115); Osmolality Calculated 303 mOsm/kg (285-295); Potassium 5.2 mmol/L (3.5-5.1); Sodium 141 mmol/L (136-145); Total Bilirubin 0.2 mg/dL (0.15-1.2); Total Protein 6.3 g/dL (6.6-8.7)
[2021-11-13] MEDS: metoprolol succinate ER (24 HR) 25 mg Tablet 12.5 MG PO (08:00)
[2021-11-13] MEDS: insulin lispro 100 unit/1 mL SUBCUT ×5 (08:00→20:55)
[2021-11-13] MEDS: pantoprazole DR 40 mg Tablet PO (08:01)
[2021-11-13] MEDS: ferrous sulfate EC 325 mg Tablet PO ×2 (08:01→17:23)
[2021-11-13] MEDS: doxycycline 100 mg Tablet PO ×2 (08:01→17:23)
[2021-11-13] MEDS: gabapentin 100 mg Capsule PO ×2 (08:01→17:23)
[2021-11-13] MEDS: amlodipine 10 mg Tablet PO (08:01)
[2021-11-13 11:03] LABS: Glucose Point of Care 248 mg/dL (70-110)
[2021-11-13] MEDS: dextrose 50% syringe 50 mL IVP (11:20)
[2021-11-13] MEDS: insulin regular-human 10 UNIT in SYRINGE 1 EACH IVP (11:20)
--- NOTE | 2021-11-13 11:42 | PC.NURSE ---
PER DR. MCLAUGHLIN, PATIENT MUST DISCHARGE WITH [facility] AND FOLLOW UP OUTPATIENT WITH DR. ADAMS.
--- NOTE | 2021-11-13 15:26 | PM.PN ---
Subjective Subjective: Interval history: No acute events overnight. Denies any nausea vomiting, headache. Worked with physical therapy today laying comfortably in bed. Denies any difficulty in breathing. More awake and alert. Having complete communication. Vitals/I&O/Wt Last Vital Signs Temp 98.2 F 11/13/21 12:00 Pulse 81 11/13/21 12:00 Resp 18 11/13/21 12:00 BP 123/80 11/13/21 12:00 Pulse Ox 94 11/13/21 12:00 11/13/21 11/13/21 11/13/21 06:59 14:59 22:59 Intake Total 1000 / 4796.666 240.1 / 240.1 Output Total 2700 / 3200 Balance -1700 / 1596.666 240.1 / 240.1 Physical Exam Narrative: EXAM NARRATIVE: General: No acute distress, AO x3, pleasant, talkative HEENT: PERRLA, pupils bilaterally equal and reactive Chest: Normal vesicular breath sounds, no added sounds, equal good air entry bilaterally CVS: S1-S2 regular, no murmurs, no tachycardia, no gallops, no rubs Abdomen: Soft, nontender, no organomegaly, bowel sounds present Neuro: No focal deficits, no facial deformity, AO x3, power 5/5 in all limbs Urinary Catheter Management^: Lisa: Cath Placed During This Visit: yes Reason for Continuing Indwelling Catheter: Acute Urinary Retention or Obstruction Urinary Catheter Date of Insertion: 11/10/21 Data : 11/12/21 06:20 11/13/21 05:22 Micro: Microbiology 11/11/21 10:41 Blood Culture - Preliminary Blood NEGATIVE TO DATE A&P Assessment and plan (1) Metabolic encephalopathy: Resolving. Most likely a combination of acute kidney injury along with polypharmacy in setting of acute kidney injury namely secondary to possible amitriptyline, Benadryl and gabapentin. Cannot rule out infectious cause though unlikely given normal lactate, afebrile status, negative UA and chest x-ray. Continue to monitor. Frequent reorientation. Sitter at bedside. Vitamin B12, folate levels within normal limits. Urine drug screen, urinalysis appreciated. Urine Legionella contact her antigen negative. Stop ceftriaxone. Continue doxycycline to finish a 5-day course. Hold off on amitriptyline and Benadryl. Restart gabapentin at a lower dose to avoid withdrawal at 100 mg 3 times daily. Status: Acute (2) Acute urinary retention: Increase home dose of Flomax to 0.8 nightly Status: Acute (3) Acute kidney injury superimposed on CKD: Resolved. Creatinine back to baseline. Most likely secondary to acute urinary retention. Appreciate renal ultrasound. Echocardiogram results appreciated Continue with Lisa catheterization for acute retention and input output charting. Mild hyperkalemia today. Insulin 10 units with D50. Repeat BMP tomorrow morning. Status: Acute (4) Uncontrolled type 2 diabetes mellitus: A1c 17.4. Continue with insulin sliding scale at high dose protocol. Start on Lantus 20 units at bedtime. Will uptitrate as per blood sugars. Stop IV fluids as patient is taking oral diet well. Status: Chronic Qualifiers: Glycemic state: with hyperglycemia Qualified Code(s): E11.65 - Type 2 diabetes mellitus with hyperglycemia (5) Dehydration: Resolved. Status: Acute (6) High anion gap metabolic acidosis: Resolved. Most likely secondary to SIENNA on CKD. Less likely secondary DKA. Repeat BMP in evening. Status: Acute (7) Essential hypertension, benign: Status: Chronic (8) BPH (benign prostatic hyperplasia): Status: Chronic Qualifiers: Lower urinary tract symptom presence: symptoms present Lower urinary tract symptom detail: incomplete bladder emptying Qualified Code(s): N40.1 - Benign prostatic hyperplasia with lower urinary tract symptoms; R39.14 - Feeling of incomplete bladder emptying (9) Restless leg: Status: Chronic (10) Type 2 diabetes mellitus with other specified complication: Status: Chronic Qualifiers: Diabetes mellitus fdc insulin use: without fdc use Qualified Code(s): E11.69 - Type 2 diabetes mellitus with other specified complication (11) Hyperlipidemia: Status: Chronic Qualifiers: Hyperlipidemia type: mixed hyperlipidemia Qualified Code(s): E78.2 - Mixed hyperlipidemia (12) Iron (Fe) deficiency anemia: Status: Chronic Qualifiers: Iron deficiency anemia type: unspecified iron deficiency Qualified Code(s): D50.9 - Iron deficiency anemia, unspecified (13) Noncompliance: Status: Acute Additional A&P Information Full code. Carb consistent renal nondialysis diet. Protonix for PUD prophylaxis. Heparin for DVT prophylaxis Discharge planning: Patient agreeable to go to [facility]. Has been accepted at [facility]. Awaiting prior authorization. Should be discharged with Lisa catheterization in place and follow-up set up with Dr. Foster as an outpatient. Plan for today: Continue with physical therapy. Continue with Lisa catheterization. Stop IV fluids. Add Lantus 20 units at bedtime. Continue with doxycycline. Insulin 10 units and D50 for mild hyperkalemia. Attestations Medical Necessity Statement*: Requires further hospitalization for resolving SIENNA in setting of urinary retention, resolving acute metabolic encephalopathy in setting of SIENNA, polypharmacy, uncontrolled type 2 diabetes mellitus while safe discharge planning to SNF is sought Time Spent in Patient Care: Greater than 35 minutes (>than 50% of time spent in counselling and/or direct pt care on unit). Coding Level of Care Code Acute Cashiers Supervisor for Chg Fwd Diagnoses Metabolic encephalopathy G93.41 Acute urinary retention R33.8 Acute kidney injury superimposed on CKD N17.9; N18.9 Uncontrolled type 2 diabetes mellitus E11.65 Glycemic state: with hyperglycemia Dehydration E86.0 High anion gap metabolic acidosis E87.2 Essential hypertension, benign I10 BPH (benign prostatic hyperplasia) N40.1; R39.14 Lower urinary tract symptom presence: symptoms present Lower urinary tract symptom detail: incomplete bladder emptying Restless leg G25.81 Type 2 diabetes mellitus with other specified complication E11.69 Diabetes mellitus termite control technician insulin use: without termite control technician use Hyperlipidemia E78.2 Hyperlipidemia type: mixed hyperlipidemia Iron (Fe) deficiency anemia D50.9 Iron deficiency anemia type: unspecified iron deficiency Noncompliance Z91.19
[2021-11-13 17:18] LABS: Glucose Point of Care 145 mg/dL (70-110)
[2021-11-13 18:12] LABS: Adenovirus Not Detected (NOT DETECT); Chlamydia Pneumoniae Not Detected (NOT DETECT); Coronavirus 229E,HKU1,NL63,OC4 Not Detected (NOT DETECT); Human Metapneumovirus Not Detected (NOT DETECT); Human Rhinovirus/Enterovirus Not Detected (NOT DETECT); Influenza A Not Detected (NOT DETECT); Influenza A H1 Not Detected (NOT DETECT); Influenza A H1-2009 Not Detected (NOT DETECT); Influenza A H3 Not Detected (NOT DETECT); Influenza B Not Detected (NOT DETECT); Mycoplasma Pneumoniae Not Detected (NOT DETECT); Parainfluenza Virus Type 1 Not Detected (NOT DETECT); Parainfluenza Virus Type 2 Not Detected (NOT DETECT); Parainfluenza Virus Type 3 Not Detected (NOT DETECT); Parainfluenza Virus Type 4 Not Detected (NOT DETECT); Respiratory Syncytial Virus A Not Detected (NOT DETECT); Respiratory Syncytial Virus B Not Detected (NOT DETECT); SARS-COV-2 Not Detected (NOT DETECT)
[2021-11-13] MEDS: tamsulosin 0.4 mg Capsule 0.8 MG PO (20:15)
[2021-11-13] MEDS: atorvastatin 40 mg Tablet PO (20:15)
[2021-11-13] MEDS: insulin glargine 100 units/1 mL 20 UNIT SUBCUT (20:15)
[2021-11-13] MEDS: aspirin 81 mg EC Tablet PO (20:15)
[2021-11-14] VITALS: BP 152/83; PULSE 85; RESP 18; TEMP 36.7; O2SAT 95
[2021-11-14] MEDS: heparin 5,000 unit/mL INJ 1 mL 5000 UNIT SUBCUT (01:48)
[2021-11-14 04:00] VITALS: BP 169/93; PULSE 91; RESP 18; TEMP 37.2; O2SAT 96
--- NOTE | 2021-11-14 04:51 | PC.SOCIAL ---
Late entry for 11/13/2020 IM explained with copy provided. Patient states I cant imagine wanting to stay any longer . He verbalized understanding of MCR right to appeal. No questions voiced.
[2021-11-14 06:28] LABS: Glucose Point of Care 245 mg/dL (70-110)
[2021-11-14 06:51] LABS: Alanine Aminotransferase 11 U/L (0-41); Albumin Level 3.6 g/dL (3.5-5.2); Alkaline Phosphatase 120 IU/L (40-130); Blood Urea Nitrogen 18 mg/dL (8-23); Carbon Dioxide 23 mmol/L (22-29); Chloride 105 mmol/L (98-107); Globulin 3.5 g/dL (1.3-4.6); Glomerular Filtration Rate 67.8 mL/min (90-130); Glucose 231 mg/dL (65-115); Osmolality Calculated 297 mOsm/kg (285-295); Sodium 139 mmol/L (136-145); Total Bilirubin 0.2 mg/dL (0.15-1.2); Total Protein 7.1 g/dL (6.6-8.7)
[2021-11-14 06:56] LABS: Anion Gap 16.1 (5-19); Aspartate Amino Transferase 19 U/L (0-40); Potassium 5.1 mmol/L (3.5-5.1)
[2021-11-14 07:28] LABS: Magnesium 1.6 mg/dL (1.7-2.3)
[2021-11-14 07:38] VITALS: BP 125/77; PULSE 94; RESP 18; TEMP 36.7; O2SAT 93
[2021-11-14 08:00] VITALS: BP 125/77; PULSE 94; RESP 18; TEMP 36.7
--- NOTE | 2021-11-14 08:39 | P.DS_ITS ---
Discharge Providers Date of Admission: 11/10/21 23:54 Date of Discharge: November 14, 2021 Attending Provider at Admission: Estefany Carrington MD Attending Provider at Discharge: Angela Garcia MD Primary Care Provider: MADELEINE Waldrop Diagnoses at Discharge Discharge Diagnosis (1) Metabolic encephalopathy: Status: Acute (2) Acute urinary retention: Status: Acute (3) Acute kidney injury superimposed on CKD: Status: Acute (4) Uncontrolled type 2 diabetes mellitus: Status: Chronic Qualifiers: Glycemic state: with hyperglycemia Qualified Code(s): E11.65 - Type 2 diabetes mellitus with hyperglycemia (5) Dehydration: Status: Acute (6) High anion gap metabolic acidosis: Status: Acute (7) Essential hypertension, benign: Status: Chronic (8) BPH (benign prostatic hyperplasia): Status: Chronic Qualifiers: Lower urinary tract symptom presence: symptoms present Lower urinary tract symptom detail: incomplete bladder emptying Qualified Code(s): N40.1 - Benign prostatic hyperplasia with lower urinary tract symptoms; R39.14 - Feeling of incomplete bladder emptying (9) Restless leg: Status: Chronic (10) Type 2 diabetes mellitus with other specified complication: Status: Chronic Qualifiers: Diabetes mellitus brand inspector insulin use: without detention use Qualified Code(s): E11.69 - Type 2 diabetes mellitus with other specified complication (11) Hyperlipidemia: Status: Chronic Qualifiers: Hyperlipidemia type: mixed hyperlipidemia Qualified Code(s): E78.2 - Mixed hyperlipidemia (12) Iron (Fe) deficiency anemia: Status: Chronic Qualifiers: Iron deficiency anemia type: unspecified iron deficiency Qualified Code(s): D50.9 - Iron deficiency anemia, unspecified (13) Noncompliance: Status: Acute Reason for Visit Reason for Visit: MULTIPLE FALLS, NOT TOILETING SINCE THURSDAY, [facility] Hospital Course Hospital Course Richie is a 61-year-old white male who presented to the hospital with significant urinary retention, and confusion consistent with metabolic encephal opathy. He was found to have acute kidney injury. There was possibility of urinary tract infection as well so IV antibiotics were initiated. Lisa was placed, he was hydrated, and eventually higher doses of Flomax were initiated. An echocardiogram was also obtained secondary to some risk factors for coronary disease and nonspecific EKG changes. This demonstrated preserved ejection fraction. With these treatments, renal function gradually improved, to a creatinine of 1.1 on discharge. Renal ultrasound was also done which demonstrated no obstruction. He does have a history of BPH, and urinary retention for which she was supposed to be doing self catheterizations. On discharge she will discharge with a Lisa and have urology follow-up. He will complete 4 more days of antibiotics in the form of doxycycline. He will follow- up with his primary care provider, nursing facility provider, and get laboratory and consisting of a CBC and BMP in approximately 3 4 to 4 days. He should avoid all renal toxic medication and all anti-inflammatories. Physical Exam Narrative: EXAM NARRATIVE: General exam no distress Neck is supple Cardiovascular regular rate and rhythm without murmur Lungs clear Abdomen soft Extremities no cyanosis clubbing or edema Neuro, polite, talkative, no evidence of current encephalopathy. Urinary Catheter Management^: Lisa: Cath Placed During This Visit: yes Reason for Continuing Indwelling Catheter: Acute Urinary Retention or Obstruction Urinary Catheter Date of Insertion: 11/10/21 Discharge Data Data Completed and Pending: Completed Studies During Hospitalization Category Date Time Status CT head wo con* 7 0450 Urgent Cat Scan 11/10/21 18:33 Completed XR chest 1V viri ble [id number] Urgent Exams 11/10/21 18:33 Completed CV. echo complete * [id number] Routine Ultrasound 11/11/21 10:00 Completed US renal BI* [id number] Routine Ultrasound 11/11/21 06:00 Completed Pending at discharge Category Date Time Status Blood Culture Sta t Lab 11/10/21 18:58 Results Miscellaneous Lilly t Routine Lab 11/11/21 15:22 Received Labs from last 24 hours 11/14/21 11/14/21 11/14/21 06:23 05:24 05:24 Sodium 139 Potassium 5.1 Chloride 105 Carbon Dioxide 23 Anion Gap 16.1 BUN 18 Creatinine 1.1 GFR Calculation 67.8 L Glucose 231 H POC Glucose 245 H Calculated Osmolal ity 297 H Calcium 9.0 Magnesium 1.6 L Total Bilirubin 0.2 AST 19 ALT 11 Alkaline Phosphata se 120 Total Protein 7.1 Albumin 3.6 Globulin 3.5 Coronavirus 229E ( PCR) SARS-CoV-2 (PCR) 11/13/21 11/13/21 11/13/21 17:01 16:00 10:58 Sodium Potassium Chloride Carbon Dioxide Anion Gap BUN Creatinine GFR Calculation Glucose POC Glucose 145 H 248 H Calculated Osmolal ity Calcium Magnesium Total Bilirubin AST ALT Alkaline Phosphata se Total Protein Albumin Globulin Coronavirus 229E ( PCR) Not detected SARS-CoV-2 (PCR) Not detected Vitals: Last Vital Signs Temp 98.1 F 11/14/21 07:38 Pulse 94 11/14/21 07:38 Resp 18 11/14/21 07:38 BP 125/77 11/14/21 07:38 Pulse Ox 93 11/14/21 07:38 Discharge Plan Discharge Patient Disposition: Xfer SNF Condition: Stable Prescriptions: New insulin lispro [Humalog U-100 Insulin] 100 unit/mL Solution 0 unit SUBCUT BEDTIME Qty: 100 RF: 0 doxycycline monohydrate 100 mg Tablet 100 mg PO BID Qty: 8 RF: 0 tamsulosin 0.4 mg Capsule 0.8 mg PO BEDTIME Qty: 60 RF: 0 gabapentin 100 mg Capsule 100 mg PO BID Qty: 60 RF: 0 amlodipine 10 mg Tablet 10 mg PO DAILY Qty: 30 RF: 0 insulin lispro [Humalog U-100 Insulin] 100 unit/mL Solution 0 unit SUBCUT TIDWM Qty: 100 RF: 0 Lantus U-100 Insulin 100 unit/mL Solution 20 unit SUBCUT BEDTIME Qty: 100 RF: 0 Continued (DME) pen needle, diabetic 31 gauge x 1/4 needle See Rx Instructions ea .ROUTE .MEDSUPPLY Qty: 150 RF: 5 (DME) Dexcom G5 Transmitter Device See Rx Instructions .Route Qty: 1 RF: 11 (DME) Dexcom G4 Travel Registered Nurse Oncology-Share Kit Misc See Rx Instructions .Route Qty: 1 RF: 11 (DME) Dexcom G5 Transmitter Device See Rx Instructions .Route Qty: 1 RF: 11 (DME) blood-glucose meter [FreeStyle Flash System] Kit See Rx Instructions .ROUTE .MEDSUPPLY Qty: 1 RF: 0 (DME) FreeStyle Michaela 14 Day [place] Misc See Rx Instructions .ROUTE .MEDSUPPLY Qty: 1 RF: 0 (DME) FreeStyle Michaela 14 Day Sensor Kit See Rx Instructions .ROUTE .MEDSUPPLY Qty: 2 RF: 12 Vitamin C 500 mg Tablet 1,000 mg PO DAILY RF: 0 pantoprazole 40 mg tablet,delayed release (DR/EC) 40 mg PO DAILY RF: 0 pramipexole 0.25 mg tablet 0.25 mg PO DAILY RF: 0 metoprolol succinate 25 mg tablet extended release 24 hr 12.5 mg PO DAILY RF: 0 lovastatin 20 mg tablet 20 mg PO DAILY RF: 0 Januvia 100 mg tablet 100 mg PO DAILY RF: 0 Fiber Therapy (m-cellulose) 500 mg Tablet 500 mg PO DAILY RF: 0 Vitamin D3 125 mcg (5,000 unit) Tablet 125 mcg PO DAILY RF: 0 melatonin 10 mg Tablet 40 mg PO BEDTIME RF: 0 multivitamin [Multiple Vitamins] Tablet 1 tab PO DAILY RF: 0 aspirin 81 mg Tablet,Delayed Release (Dr/Ec) 81 mg PO BEDTIME RF: 0 ferrous sulfate [iron] 325 mg (65 mg iron) Tablet 325 mg PO BID RF: 0 Discontinued tamsulosin 0.4 mg capsule 0.4 mg PO BEDTIME RF: 0 lisinopril 10 mg tablet 10 mg PO DAILY RF: 0 gabapentin 300 mg capsule 300 mg PO BID RF: 0 amitriptyline 100 mg tablet 100 mg PO BEDTIME RF: 0 Sleep Aid (diphenhydramine) 25 mg Tablet 50 mg PO BEDTIME RF: 0 Tylenol PM Extra Strength 25-500 mg Tablet 2 tab PO BEDTIME RF: 0 Discharge Orders: Discharge Order (Routine); Ordered 11/14/21 Ordered By: Daquan Joseph Referrals: VERONICA Ordonez FNP [Primary Care Provider] - 4-7 days Huey Foster MD [Physician] - 7-10 days (Urinary retention) Discharge Diet: Cardiac and Diabetic Discharge Activity: Increase activity as tolerated Activity Restrictions/Additional Instructions: Follow-up with group home facility provider in the next 2 to 3 days with CBC and BMP Discharge Attestations Time Spent in Discharge Care*: greater than 30 min Status at Discharge: Cognitive status at discharge: cognitively intact , Behavioral status at discharge: cooperative , Quality Metrics Clinical Quality Measures During this hospital stay, did patient experience: None Coding Level of Care Code Acute Chg FW DC note Diagnoses Metabolic encephalopathy G93.41 Acute urinary retention R33.8 Acute kidney injury superimposed on CKD N17.9; N18.9 Uncontrolled type 2 diabetes mellitus E11.65 Glycemic state: with hyperglycemia Dehydration E86.0 High anion gap metabolic acidosis E87.2 Essential hypertension, benign I10 BPH (benign prostatic hyperplasia) N40.1; R39.14 Lower urinary tract symptom presence: symptoms present Lower urinary tract symptom detail: incomplete bladder emptying Restless leg G25.81 Type 2 diabetes mellitus with other specified complication E11.69 Diabetes mellitus brand inspector insulin use: without brand inspector use Hyperlipidemia E78.2 Hyperlipidemia type: mixed hyperlipidemia Iron (Fe) deficiency anemia D50.9 Iron deficiency anemia type: unspecified iron deficiency Noncompliance Z91.19
[2021-11-14] MEDS: insulin lispro 100 unit/1 mL SUBCUT ×2 (08:55→11:35)
[2021-11-14] MEDS: ferrous sulfate EC 325 mg Tablet PO (08:56)
[2021-11-14] MEDS: gabapentin 100 mg Capsule PO (08:56)
[2021-11-14] MEDS: amlodipine 10 mg Tablet PO (08:56)
[2021-11-14] MEDS: doxycycline 100 mg Tablet PO (08:56)
[2021-11-14] MEDS: metoprolol succinate ER (24 HR) 25 mg Tablet 12.5 MG PO (08:56)
[2021-11-14] MEDS: pantoprazole DR 40 mg Tablet PO (08:56)
[2021-11-14] MEDS: magnesium oxide 400 mg tablet PO (08:58)
[2021-11-14] MEDS: bisacodyl 10 mg Supp PR (10:58)
[2021-11-14 11:07] LABS: Glucose Point of Care 198 mg/dL (70-110)
[2021-11-14 11:57] VITALS: BP 135/72; PULSE 84; RESP 17; TEMP 36.9; O2SAT 94
--- NOTE | 2021-11-14 13:07 | PC.NURSE ---
Report called to [facility], Yandy nurse accepted it at this time.
[2021-11-14 13:10] VITALS: BP 135/72; PULSE 84; RESP 17; TEMP 36.9; O2SAT 94
== END 2021-11-14 13:27 | disposition skilled nursing facility (03) | DRG 682 ==
LOC: ER 23:27 → MEDSURG 11-11 00:59
PROVIDERS: Student in an Organized Health Care Education/Training Program; Admitting Provider Hospitalist; Emergency Provider Emergency Medicine; PCP Nurse Practitioner Family; Visit Provider Internal Medicine
DX: N17.9 Acute kidney failure, unspecified (principal); G93.41 Metabolic encephalopathy; N39.0 Urinary tract infection, site not specified; E11.65 Type 2 diabetes mellitus with hyperglycemia; N40.1 Benign prostatic hyperplasia with lower urinary tract symptoms; E86.0 Dehydration; R33.8 Other retention of urine; R39.14 Feeling of incomplete bladder emptying; I25.10 Atherosclerotic heart disease of native coronary artery without angina pectoris; G25.81 Restless legs syndrome; D50.9 Iron deficiency anemia, unspecified; E11.22 Type 2 diabetes mellitus with diabetic chronic kidney disease; I12.9 Hypertensive chronic kidney disease with stage 1 through stage 4 chronic kidney disease, or unspecified chronic kidney disease; N18.9 Chronic kidney disease, unspecified; E78.2 Mixed hyperlipidemia; E11.51 Type 2 diabetes mellitus with diabetic peripheral angiopathy without gangrene; E11.40 Type 2 diabetes mellitus with diabetic neuropathy, unspecified; M10.9 Gout, unspecified; E66.9 Obesity, unspecified; I95.9 Hypotension, unspecified; E87.5 Hyperkalemia; Z89.411 Acquired absence of right great toe; Z91.19 Patient's noncompliance with other medical treatment and regimen; Z91.81 History of falling; Z79.82 Long term (current) use of aspirin; Z79.84 Long term (current) use of oral hypoglycemic drugs; Z68.31 Body mass index [BMI] 31.0-31.9, adult
CPT/HCPCS: 36415; 36416; 36600; 51702; 70450; 71045; 76770; 80048; 80053; 80061; 80306; 80307; 81001; 82009; 82140; 82436; 82550; 82570; 82607; 82746; 82803; 82962; 83036; 83540; 83550; 83605; 83721; 83735; 83880; 84100; 84133; 84300; 84484; 85025; 85999; 86140; 86403; 87040; 87449; 87635; 93005; 93306; 96361; 96372; 96374; 97116; 97162; 99285; J0696; J1644; J1815 ×2; J1956; J7030

== ENCOUNTER → 2022-01-22 15:44 | Outpatient (BNVA) | payer MEDICARE, SELFPAY | PROVIDERS: PCP Nurse Practitioner Family; Visit Provider Nurse Practitioner Family | DX: E11.65 Type 2 diabetes mellitus with hyperglycemia (principal); D50.9 Iron deficiency anemia, unspecified; M10.9 Gout, unspecified; Z23 Encounter for immunization | CPT/HCPCS: 80053; 82728; 83036; 83550; 83735; 84100; 84550; 85025 ==

== ENCOUNTER 2023-02-22 14:17 | Outpatient (CLI) | payer MEDICARE, SELFPAY ==
[2023-02-22 15:04] LABS: Basophils % 0.5 %; Eosinophils # 0.4 10^3/uL (0.0-0.8); Eosinophils % 4.7 %; Hematocrit 36.2 % (42.0-52.0); Hemoglobin 11.3 g/dL (11.7-16.6); Lymphocytes # 1.9 10^3/uL (0.8-4.8); Lymphocytes % 24.8 %; Mean Corpuscular HGB Conc 31.2 g/dL (30.0-36.0); Mean Corpuscular Hemoglobin 27.4 pg (28.0-34.0); Mean Corpuscular Volume 87.9 fl (80-94); Mean Platelet Volume 10.9 fL (7.4-10.4); Monocytes # 0.7 10^3/uL (0.2-0.9); Monocytes % 9.7 %; Neutrophils # 4.52 10^3/uL (1.8-7.7); Neutrophils % 60.2 %; Nucleated Red Blood Cells % 0 %; Platelet Count 297 10^3/cmm (130-400); Red Blood Count 4.12 10^6/uL (4.1-5.3); Red Cell Distribution Width 14.1 % (12.1-15.1); White Blood Count 7.5 10^3/uL (4.0-10.0)
[2023-02-22 15:39] LABS: Alanine Aminotransferase 41 U/L (0-41); Albumin Level 3.8 g/dL (3.5-5.2); Alkaline Phosphatase 141 U/L (40-130); Anion Gap 12.5 (5-19); Aspartate Amino Transferase 19 U/L (0-40); Blood Urea Nitrogen 23 mg/dL (8-23); Calcium 8.8 mg/dL (8.5-10.5); Carbon Dioxide 26 mmol/L (22-29); Chloride 98 mmol/L (98-107); Chol HDL Ratio 4.03 mg/dL (1.0-5.00); Cholesterol 121 mg/dL (0-200); Globulin 2.6 g/dL (1.3-4.6); Glomerular Filtration Rate 67.6 mL/min (90-130); Glucose 116 mg/dL (65-115); HDL Cholesterol 30 mg/dL (60-100); LDL Cholesterol Calculated 41 mg/dL (50-129); LDL HDL Ratio 1.37 RATIO (0.00-3.22); Osmolality Calculated 279 mOsm/kg (285-295); Potassium 4.5 mmol/L (3.5-5.1); Sodium 132 mmol/L (136-145); Total Bilirubin 0.2 mg/dL (0.15-1.2); Total Protein 6.4 g/dL (6.6-8.7); Triglycerides 249 mg/dL (0-150)
== END 2023-02-22 14:18 | disposition home or self-care (01) ==
LOC: LAB 14:18
PROVIDERS: PCP Nurse Practitioner Family; Visit Provider Family Medicine
DX: E11.59 Type 2 diabetes mellitus with other circulatory complications (principal)
CPT/HCPCS: 80053; 80061; 85025

== ENCOUNTER → 2023-03-27 09:38 | Outpatient (BNVA) | payer MEDICARE, SELFPAY | PROVIDERS: PCP Nurse Practitioner Family; Visit Provider Nurse Practitioner Family | DX: E11.622 Type 2 diabetes mellitus with other skin ulcer (principal) | CPT/HCPCS: 87070; 87075; 87077; 87184; 87205 ==

== ENCOUNTER → 2023-08-25 16:36 | Outpatient (BNVA) | payer MEDICARE, SELFPAY | PROVIDERS: PCP Nurse Practitioner Family; Visit Provider Nurse Practitioner Family | DX: Z48.00 Encounter for change or removal of nonsurgical wound dressing (principal) | CPT/HCPCS: 87070; 87075; 87077; 87184; 87205 ==